=== PATIENT | male | born 1945 | race Asian ===

== ENCOUNTER → 2016-04-16 | Outpatient (CLI) | payer OTHER ==
[~2016-04-16] MED LIST: AMLO-110 PO; CHOL2000 PO; CMD3 PO; FERR325T51 PO; FINA5TAB PO; LEVO25TA PO; LTN/2025 PO; METO25TA56 PO; SIMV20TA2 PO; TAMS0.4C38 PO; ZTHM250 PO
[2016-04-16 10:46] LABS: BLOOD UREA NITROGEN 21 mg/dl (7-18); BUN/CREATININE RATIO 22.2 (10-20); CALCIUM 10.1 mg/dl (8.5-10.1); CARBON DIOXIDE 27 mmol/L (21-32); CHLORIDE 105 mmol/L (98-107); CREATININE 0.95 mg/dl (0.60-1.40); GLUCOSE 84 mg/dl (70-99); SODIUM 141 mmol/L (136-145)
== END | disposition home or self-care (01) ==
LOC: C.LAB1850 09:07
PROVIDERS: ATTEND Internal Medicine
DX: E87.1 Hypo-osmolality and hyponatremia (principal)

== ENCOUNTER → 2016-05-28 | Outpatient (CLI) | payer OTHER ==
[2016-05-28 17:57] LABS: URINE APPEARANCE CLEAR (CLEAR); URINE BILIRUBIN NEG (NEG); URINE COLOR YELLOW; URINE EPITHELIAL CELL AUTO 0-5 /lpf (0-5); URINE NITRITE NEG (NEG); URINE PH 6.5 (4.5-7.5); URINE SPECIFIC GRAVITY 1.002 (1.000-1.030); UROBILINOGEN NEG (NEG); ZZUR CULT IF INDIC CLEAN CATCH NO
[2016-05-28 18:00] LABS: MANUAL MICROSCOPIC REQUIRED? NO; REVIEW REQ? NO
[2016-05-28 18:30] LABS: CREATININE RANDOM URINE < 13.0 mg/dl
[2016-05-29 06:18] LABS: ESTIMATED AVERAGE GLUCOSE 114 mg/dl; HA1C FLAG Normal (Normal)
== END | disposition home or self-care (01) ==
LOC: C.LABBFT 12:10
PROVIDERS: ATTEND Urology
DX: E11.9 Type 2 diabetes mellitus without complications (principal); E03.9 Hypothyroidism, unspecified; E55.9 Vitamin D deficiency, unspecified; R33.9 Retention of urine, unspecified

== ENCOUNTER → 2016-09-17 | Outpatient (CLI) | payer OTHER ==
[~2016-09-17] MED LIST changes: +AZIT-57 PO; -ZTHM250 PO
[2016-09-17 13:14] LABS: HEMATOCRIT 38.1 % (42-52); MEAN CELL VOLUME 85.8 fL (80-100); MEAN CORPUSCULAR HEMOGLOBIN 27.7 pg (25-34); MEAN CORPUSCULAR HGB CONC 32.3 g/dl (32-36); MEAN PLATELET VOLUME 10.5 fL (7.4-10.4); PLATELET COUNT 182 K/uL (130-400); RED BLOOD COUNT 4.44 M/uL (4.7-6.1); WHITE BLOOD COUNT 4.43 K/uL (4.8-10.8)
[2016-09-17 14:05] LABS: BLOOD UREA NITROGEN 29 mg/dl (7-18); BUN/CREATININE RATIO 26.8 (10-20); CALCIUM 9.5 mg/dl (8.5-10.1); CARBON DIOXIDE 26 mmol/L (21-32); CHLORIDE 102 mmol/L (98-107); GLUCOSE 87 mg/dl (70-99); POTASSIUM 3.8 mmol/L (3.5-5.1); SODIUM 137 mmol/L (136-145)
== END | disposition home or self-care (01) ==
LOC: C.LAB1850 11:47
PROVIDERS: ATTEND Physician Assistant
DX: D64.9 Anemia, unspecified (principal); R42 Dizziness and giddiness

== ENCOUNTER → 2016-10-14 | Outpatient (CLI) | payer OTHER ==
[~2016-10-14] MED LIST changes: -AZIT-57 PO; +ZTHM250 PO
[2016-10-14 10:22] LABS: INR 2.1 (0.9-1.1); PROTHROMBIN TIME (PATIENT) 22.8 SECONDS (9.0-12.0)
[2016-10-14 12:40] LABS: CHOLESTEROL/HDL RATIO 2.9
== END | disposition home or self-care (01) ==
LOC: C.LAB1850 09:01
PROVIDERS: ATTEND Internal Medicine
DX: I48.1 Persistent atrial fibrillation (principal); E78.00 Pure hypercholesterolemia, unspecified

== ENCOUNTER → 2016-10-15 | Outpatient (CLI) | payer OTHER ==
--- NOTE | 2016-10-15 12:50 | DIAGNOSTIC IMAGING REPORT ---
CHEST 2 VIEWS ROUTINE CLINICAL HISTORY: 71 years-old Male presenting with PLEURAL EFFUSION. TECHNIQUE: PA and lateral views of the chest were obtained. COMPARISON: 03/03/2016. FINDINGS: Left-sided pacer with single lead to the right ventricular apex. Median sternotomy wires intact. Prosthetic aortic valve noted. Enlarged cardiac silhouette with a double density suggestive of left atrial enlargement. Atherosclerosis of the aortic arch. Lungs and pleural spaces now clear. Osseous structures and upper abdomen normal. IMPRESSION: 1. Interval resolution of prior right pleural effusion and basilar opacity. No acute cardiopulmonary disease. 2. Cardiomegaly. Electronically signed by: Gen Cazares M.D. 10/15/2016 12:49 PM Dictated Date/Time: 10/15/2016 12:47 PM
== END | disposition home or self-care (01) ==
LOC: C.RAD1850 12:08
PROVIDERS: ATTEND Internal Medicine
DX: J90 Pleural effusion, not elsewhere classified (principal); I51.7 Cardiomegaly

== ENCOUNTER → 2016-12-11 | Outpatient (CLI) | payer OTHER ==
[2016-12-11 16:29] LABS: BLOOD UREA NITROGEN 26 mg/dl (7-18); BUN/CREATININE RATIO 23.6 (10-20); CALCIUM 9.9 mg/dl (8.5-10.1); CARBON DIOXIDE 31 mmol/L (21-32); CHLORIDE 101 mmol/L (98-107); GLUCOSE 108 mg/dl (70-99); MAGNESIUM 2.3 mg/dl (1.8-2.4); POTASSIUM 3.6 mmol/L (3.5-5.1); SODIUM 137 mmol/L (136-145)
[2016-12-11 16:30] LABS: PHOSPHORUS 2.9 mg/dl (2.5-4.9)
[2016-12-11 17:09] LABS: URINE PROTIEN/CREAT RATIO 0.3 (0-0.2); URINE TOTAL PROTEIN 12.5 mg/dl (0-11.9)
== END | disposition home or self-care (01) ==
LOC: C.LAB1850 15:06
PROVIDERS: ATTEND Internal Medicine Nephrology
DX: I10 Essential (primary) hypertension (principal)

== ENCOUNTER → 2017-03-10 | Outpatient (CLI) | payer OTHER ==
[~2017-03-10] MED LIST changes: +AZIT-57 PO; -ZTHM250 PO
[2017-03-10 10:10] LABS: BASO % 0.4 %; BASO ABS # 0.02 K/uL (0-0.2); COMPLETE YES; EOS % 3.8 %; HEMATOCRIT 37.8 % (42-52); IG% 0.2 %; LYMPH ABS # 1.73 K/uL (1.2-3.4); MEAN CELL VOLUME 87.9 fL (80-100); MEAN CORPUSCULAR HEMOGLOBIN 28.4 pg (25-34); MEAN CORPUSCULAR HGB CONC 32.3 g/dl (32-36); MEAN PLATELET VOLUME 10.2 fL (7.4-10.4); MONO % 15.4 %; NEUT % 47.2 %; PLATELET COUNT 164 K/uL (130-400); WHITE BLOOD COUNT 5.25 K/uL (4.8-10.8)
[2017-03-10 10:20] LABS: ESTIMATED AVERAGE GLUCOSE 120 mg/dl; HA1C FLAG Normal (Normal)
[2017-03-10 10:44] LABS: ALT/SGPT 37 U/L (12-78); AST/SGOT 42 U/L (15-37); BLOOD UREA NITROGEN 23 mg/dl (7-18); BUN/CREATININE RATIO 21.1 (10-20); CALCIUM 9.2 mg/dl (8.5-10.1); CARBON DIOXIDE 27 mmol/L (21-32); CHLORIDE 99 mmol/L (98-107); CREATININE 1.09 mg/dl (0.60-1.40); GLUCOSE 111 mg/dl (70-99); POTASSIUM 3.5 mmol/L (3.5-5.1); SODIUM 131 mmol/L (136-145)
[2017-03-10 10:54] LABS: ALB/GLOB RATIO 0.8 (0.9-2); ALKALINE PHOSPHATASE 94 U/L (45-117)
== END | disposition home or self-care (01) ==
LOC: C.LAB1850 09:15
PROVIDERS: ATTEND Internal Medicine
DX: D64.9 Anemia, unspecified (principal); E03.9 Hypothyroidism, unspecified; E11.9 Type 2 diabetes mellitus without complications

== ENCOUNTER 2018-10-03 13:15 | Inpatient (IN) ==
[2018-10-03] MEDS ORDERED: SODIUM CHLORIDE 0.9% 1000ML 1,000 ML IV SCH (13:45)
[2018-10-03 14:10] LABS: Basophils # (auto) 0.03 K/uL (0-0.2); Basophils % (auto) 0.6 %; Eosinophils # (auto) 0.22 K/uL (0-0.5); Eosinophils % (auto) 4.7 %; Hematocrit (blood only) 25.4 % (42-52); Hemoglobin 8.5 g/dL (14.0-18.0); Immature Granulocytes # (auto) 0.01 K/uL (0.00-0.02); Immature Granulocytes % (auto) 0.2 %; Lymphocytes # (auto) 0.81 K/uL (1.2-3.4); Lymphocytes % (auto) 17.1 %; Mean Corpuscular Hgb Conc 33.5 g/dL (32-36); Mean Corpuscular Volume 83.3 fL (80-100); Mean Platelet Volume 9.2 fL (7.4-10.4); Monocytes # (auto) 0.57 K/uL (0.11-0.59); Monocytes % (auto) 12.1 %; Neutrophils # (auto) 3.09 K/uL (1.4-6.5); Neutrophils % (auto) 65.3 %; Platelet Count 164 K/uL (130-400); RDW Coefficient of Variation 13.6 % (11.5-14.5); RDW Standard Deviation 41.5 fL (36.4-46.3); Red Blood Count 3.05 M/uL (4.7-6.1); White Blood Count 4.73 K/uL (4.8-10.8)
[2018-10-03 14:19] LABS: INR 3.1 (0.9-1.1); Partial Thromboplastin Ratio 1.5; Partial Thromboplastin Time 41.6 Seconds (21.0-31.0)
[2018-10-03 14:26] LABS: Alanine Aminotransferase 39 U/L (12-78); Albumin Level 3.5 gm/dl (3.4-5.0); Aspartate Aminotransferase 51 U/L (15-37); BUN Creatinine Ratio 17.3 (10-20); Blood Urea Nitrogen 21 mg/dl (7-18); Calcium 9.2 mg/dl (8.5-10.1); Carbon Dioxide 27 mmol/L (21-32); Chloride 92 mmol/L (98-107); Est GFR (African American) 67.4; Est GFR (Non-African American) 58.1; Glucose 125 mg/dl (70-99); Potassium 3.4 mmol/L (3.5-5.1); Sodium 127 mmol/L (136-145)
[2018-10-03 14:28] LABS: Albumin Globulin Ratio 0.9 (0.9-2); Alkaline Phosphatase 64 U/L (45-117); Bilirubin,Total 0.4 mg/dl (0.2-1); Globulin 3.9 gm/dl (2.5-4.0); Total Protein 7.4 gm/dl (6.4-8.2)
--- NOTE | 2018-10-03 15:20 | History & Physical Report ---
Date of Service October 03, 2018 Assessment & Plan (1) GI bleed: (2) Anemia: (3) Dizziness: -Admit to telemetry -Holding Coumadin, 5 mg vitamin K administered -GI consulted, Dr. Cuevas -Recheck hemoglobin/hematocrit along with second troponin, follow with a.m. labs -Famotidine 20 mg BID as protonix on severe back order -Blood consent, type and screen obtained in the ER -Check troponin now with possibility of acute blood loss anemia causing demand ischemia (4) MGUS (monoclonal gammopathy of unknown significance): -Noted, stable (5) Hyponatremia: -Na+ = 127, will improve with NSS follow a.m. PRP (6) Hypokalemia: -Mildly depressed at 3.4, follow a.m. PRP, order one-time dose p.o. supplementation (7) HTN (hypertension): (8) HLD (hyperlipidemia): (9) H/O mitral valve replacement with mechanical valve: (10) Pacemaker: -Holding all antihypertensives -Continue simvastatin -Holding Coumadin, last dose was last evening of 3 mg. Patient alternates 3 mg 3xwk and 4.5 mg all other days. (11) DVT prophylaxis: Teds, no chemical prophylaxis secondary to GI bleed as above. History of Present Illness Primary Care Provider: Geoffrey Sargent MD This is a 73-year-old male with past medical history of MGUS, anemia, HTN, HLD, hypothyroidism, BPH, afib s/p pacemaker insertion in 2015 currently in NSR, mechanical MV placed 2004, who presents with occult GI bleed. Patient's son is at bedside provides majority of the history for the patient, as he speaks in broken Kiswahili. The bleeding started approximately 1 week ago and has progressed to the point where he has BRBPR at least 3 times per day, today he has had 2 bowel movements. Patient has been taking his regularly scheduled Coumadin, 3 mg alternating with 4.5 mg, last dose was last evening of 3 mg. He admits to dizziness x2 days and progressive fatigue over the last week. Patient denies any shortness of breath. Denies abdominal pain or cramping. Hgb= 8.5, sodium = 127, K+ = 3.4. Allergies Allergy/AdvReac Type Severity Reaction Status Date / Time adhesive Allergy Unknown RASH Verified 10/03/18 14:47 Home Medications Home Medications Medication Instructions Recorded Confirmed Type cholecalciferol (vitamin D3) 2,000 unit PO DAILY #0 02/19/15 10/03/18 History simvastatin 20 mg PO DAILY #0 02/19/15 10/03/18 History finasteride 5 mg PO DAILY #0 tab 02/26/16 10/03/18 History metoprolol tartrate 25 mg PO BID #0 02/26/16 10/03/18 History tamsulosin 0.4 mg PO DAILY #0 cap 02/26/16 10/03/18 History ferrous sulfate 325 mg PO DAILY #0 05/31/17 10/03/18 History warfarin [Jantoven] 3 mg PO 3XWK #0 05/31/17 10/03/18 History warfarin [Jantoven] 3 mg PO 4XWK #0 05/31/17 10/03/18 History amlodipine 5 mg PO DAILY 10/03/18 10/03/18 History benazepril-hydrochlorothiazide 1 tab PO DAILY 10/03/18 10/03/18 History calcium carbonate [Calcium 500] 500 mg PO DAILY 10/03/18 10/03/18 History levothyroxine 50 mcg PO DAILY 10/03/18 10/03/18 History Past Med/Surg History Medical History Pacemaker HLD (hyperlipidemia) HTN (hypertension) Hypokalemia Hyponatremia GI bleed (Acute) Anemia (Acute) Dizziness MGUS (monoclonal gammopathy of unknown significance) Surgical History H/O mitral valve replacement with mechanical valve S/P hemorrhoidectomy Family History Other Hypertension Social History Feels Safe at Home: Yes Smoking Status: Never smoker Review of Systems Review of Systems: Constitutional: No fever, sweats or chills, + fatigue and dizziness Eyes: No diplopia, no worsening or blurred vision ENT: normal hearing, no trouble swallowing Respiratory: No cough, sputum, dyspnea at rest or on exertion Cardiovascular: No chest pain, tightness or palpitations Abdomen: No pain, nausea, vomiting, diarrhea or constipation Musculoskeletal: No joint pain, calf pain, swelling Neurologic: Chronic left-sided weakness s/p CVA, uses cane at baseline, numbness/tingling, or balance problems Psychiatric: No anxiety or depression Skin: No rash or itch Physical Exam Physical Exam: General: awake, alert, no apparent distress Head: Normocephalic, atraumatic ENT: PERRL, EOMI, no pharyngeal exudate, mucous membranes moist Chest: Clear to auscultation, on room air, no adventitious breath sounds Cardiac: Regular rate and rhythm, no murmur, + valve click, no JVD, normal peripheral pulses, good capillary refill Abdominal: NABS x 4 quadrants, soft, +slightly distended, nontender to palpation, no rebound, guarding or tenderness Extremities: Normal inspection, no peripheral edema or erythema, calfs nontender to palpation Psych: Normal mood and affect Neuro: AAO x 3, no gross motor deficits, speech is clear Skin: no rash or erythema Constitutional: WD/WN, vitals as above Eyes: normal visual hartley by confrontation and + anicteric sclerae Neck: normal visual inspection and trachea midline Respiratory: normal respiratory effort, lungs clear to auscultation Cardiovascular: Rate/Rhythm: regular rate and regular rhythm Gastrointestinal (Abdomen): Inspection/Auscultation: abdomen not distended Percussion/Palpation: abdomen soft; abdomen nontender Musculoskeletal: Head/Neck/Chest: normocephalic and head atraumatic negative for edema, peripheral pulses intact Skin: no rashes, warm and dry Neurologic: awake; not confused Speech / Cognition: normal speech Psychiatric: A+Ox3, euthymic affect Results & Data Vital Signs (Past 12 Hours) Vital Signs Temp Pulse Resp BP Pulse Ox 10/03/18 14:41 60 18 97 10/03/18 14:31 60 19 122/59 L 98 10/03/18 14:30 60 15 98 10/03/18 14:20 60 15 98 10/03/18 14:11 60 16 97 10/03/18 14:01 65 18 131/64 98 10/03/18 14:00 68 19 10/03/18 13:50 60 18 98 10/03/18 13:45 86 7 L 10/03/18 13:43 61 21 127/66 98 10/03/18 13:22 36.7 C 65 20 139/68 98 ECG Additional Comments: 03-OCT-2018 13:58:17 [facility]-EDSTAT ROUTINE RETRIEVAL Ventricular-paced rhythm Abnormal ECG When compared with ECG of 26-NOV-2016 17:14, No significant change was found 25mm/s 10mm/mV 150Hz 9.0.8 12SL 241 CHRISTIANO: 11 Unconfirmed Vent. rate 67 BPM MD interval * ms QRS duration 198 ms QT/QTc 498/526 ms P-R-T axes * -86 87 Code Status & VTE Plan Code Status Full code- discussed with patient and son at bedside Supervising Physician Co-Signing Physician Notes Pt seen and examined by me. Denies chest pain or SOB. Has been tolerating PO without issue. [place] that the BRBPR that he has been having was similar to hemorrhoids, however when he has had hemorrhoid bleeding in the past he could feel the hemorrhoid. He could not with this episode. Agree with HPI/ROS as noted by PA. See above for my exam in PE section Agree with plan as outlined above GIB, possibly hemorrhoids Hb is 8.5, repeat and monitor Pt was guaic + in the ED Holding coumadin INR 3.1, was given 5mg Vit K in the ED given bleeding Monitor PG Care Time/CCT Total # of Minutes Spent Total Time Spent with Patient: Total time spent is greater than 50% in coordination of care (as documented) at patient's floor/unit and/or counseling patient: (1) GI bleed GI bleed type/associated pathology: unspecified gastrointestinal hemorrhage type Qualified Code(s): K92.2 - Gastrointestinal hemorrhage, unspecified (2) Anemia Anemia type: unspecified type Qualified Code(s): D64.9 - Anemia, unspecified
--- NOTE | 2018-10-03 15:30 | Emergency Department Note ---
Entered by Penny Chery acting as a scribe for History of Present Illness General Chief complaint: Referred by Doctor Stated complaint: HEMORROID, BLEEDING Source: patient and family Mode of arrival: ambulatory Limitations: no limitations History of Present Illness Provider complaint: rectal bleeding Onset (ago): day(s) (4-5) Location: abdomen Pain Consistency: + other (persistent) Quality: + other (rectal bleeding) Associated symptoms: + other (no energy); no nausea/vomiting The patient is a 73 year old male who presents to the ER with complaints of persistent rectal bleeding that began 4-5 days ago. The patients family member at bedside reports that the patient does have a history of hemorrhoids. He states that the patient has had liquid bowel movement for the past 4-5 days which contain bright red blood. He also notes that the patient has had no energy. He reports that the patient is on Coumadin for his history of a-fib. He denies a history of cancer or stomach ulcers. He also denies ever having a colonoscopy performed. The patient denies any vomiting. Home Medications Home Medications Medication Instructions Recorded Confirmed Type cholecalciferol (vitamin D3) 2,000 unit PO DAILY #0 02/19/15 10/03/18 History simvastatin 20 mg PO DAILY #0 02/19/15 10/03/18 History finasteride 5 mg PO DAILY #0 tab 02/26/16 10/03/18 History metoprolol tartrate 25 mg PO BID #0 02/26/16 10/03/18 History tamsulosin 0.4 mg PO DAILY #0 cap 02/26/16 10/03/18 History ferrous sulfate 325 mg PO DAILY #0 05/31/17 10/03/18 History warfarin [Jantoven] 3 mg PO 3XWK #0 05/31/17 10/03/18 History warfarin [Jantoven] 3 mg PO 4XWK #0 05/31/17 10/03/18 History amlodipine 5 mg PO DAILY 10/03/18 10/03/18 History benazepril-hydrochlorothiazide 1 tab PO DAILY 10/03/18 10/03/18 History calcium carbonate [Calcium 500] 500 mg PO DAILY 10/03/18 10/03/18 History levothyroxine 50 mcg PO DAILY 10/03/18 10/03/18 History Allergies Allergy/AdvReac Type Severity Reaction Status Date / Time adhesive Allergy Unknown RASH Verified 10/03/18 14:47 Past Med/Surg History Medical History Pacemaker HLD (hyperlipidemia) HTN (hypertension) Hypokalemia Hyponatremia GI bleed (Acute) Anemia (Acute) Dizziness MGUS (monoclonal gammopathy of unknown significance) Surgical History H/O mitral valve replacement with mechanical valve S/P hemorrhoidectomy Family History Other Hypertension Social History Preferred Language: Francisco Javiere Kinyarwanda Communication Ability: Effective Communication Tools: IPad, Facial Expression, Physical Gestures and Other Aircraft Motor Mechanic Required: Yes Beliefs That Will Affect Care: None Current Living Situation: Spouse Current Living Situation Comment: lives with Other Information That Helps Us Care for You: No Feels Safe at Home: Yes Safety Concerns: Feels Safe At This Time Smoking Status: Never smoker Hx Alcohol Use: No Hx Substance Use: No Review of Systems See HPI for pertinent positives & negatives. and A total of 10 systems reviewed and were otherwise negative Physical Exam Vital Signs Vital Signs - 24 hr 10/03/18 15:42 Pulse Rate [Apical] 60 Pulse Rhythm [Apical] Regular Pulse Strength [Apical] Normal Respiratory Rate 16 Respiratory Effort / Characteristics Non-Labored Spontaneous Respiratory Depth Normal Respiratory Pattern Regular Blood Pressure [Left Arm] 115/65 Blood Pressure Mean [Left Arm] 81 Blood Pressure Position [Left Arm] Sitting Pulse Oximetry 98 Oxygen Delivery Method Room Air Vital signs reviewed. General: Well-appearing elderly, in no significant distress. HEENT: No scleral icterus, PERRLA, neck supple. Atraumatic. Cardiovascular: Regular rate and rhythm, no extra sounds. Pulmonary: Clear to auscultation bilaterally, normal work of breathing. Abdomen: Soft, nontender, nondistended, positive bowel sounds. Rectal: Several small external hemorrhoids around the rectum. Dark brown guaiac positive stool. Musculoskeletal: Atraumatic, no peripheral edema. Neurologic: Patient awake alert and oriented x 3, speaking pala language, son interpreting Skin: Warm, dry, no rash Course 1347: Past medical records reviewed. The patient was evaluated in room C1B. A complete history and physical examination was performed. 1457: I discussed the patient's case with Dr. Ramires. She will evaluate the patient for further management. Administered Medications Ferrous Sulfate (Feosol) 325 mg PO DAILY DONALD Stop: 11/03/18 08:59 Last Admin: 10/04/18 08:45 Dose: 325 mg Documented by: [id number] Finasteride (Proscar) 5 mg PO DAILY DONALD Stop: 11/03/18 08:59 Last Admin: 10/04/18 08:45 Dose: 5 mg Documented by: [id number] Sodium Chloride (Nss 1000ml) 1,000 mls @ 125 mls/hr IV .Q8H DONALD Stop: 11/02/18 17:09 Last Admin: 10/04/18 13:16 Dose: 125 mls/hr Documented by: [id number] Infusion: 10/04/18 13:16 Dose: 125 mls/hr Documented by: [id number] Admin: 10/04/18 05:53 Dose: 125 mls/hr Documented by: [id number] Infusion: 10/04/18 05:53 Dose: 125 mls/hr Documented by: [id number] Admin: 10/03/18 22:35 Dose: 125 mls/hr Documented by: [id number] Infusion: 10/03/18 22:35 Dose: 125 mls/hr Documented by: [id number] Admin: 10/03/18 17:20 Dose: 125 mls/hr Documented by: [id number] Famotidine 20 mg/ Syringe 5 mls @ 2.5 mls/min IV BID DONALD Stop: 11/02/18 20:59 Last Admin: 10/04/18 08:45 Dose: 2.5 mls/min Documented by: [id number] Admin: 10/03/18 20:46 Dose: 2.5 mls/min Documented by: [id number] Levothyroxine Sodium (Synthroid) 50 mcg PO DAILYBB DONALD Stop: 11/03/18 06:29 Last Admin: 10/04/18 05:52 Dose: 50 mcg Documented by: [id number] Simvastatin (Zocor) 20 mg PO DAILY DONALD Stop: 11/03/18 08:59 Last Admin: 10/04/18 08:45 Dose: 20 mg Documented by: [id number] Tamsulosin HCl (Flomax) 0.4 mg PO DAILY DONALD Stop: 11/03/18 08:59 Last Admin: 10/04/18 08:45 Dose: 0.4 mg Documented by: [id number] Discontinued Medications Sodium Chloride (Nss 1000ml) 1,000 mls @ 100 mls/hr IV .Q10H DONALD Stop: 10/03/18 23:44 Last Infusion: 10/04/18 08:39 Dose: 0 mls/hr Documented by: [id number] Admin: 10/03/18 14:16 Dose: 100 mls/hr Documented by: [id number] Potassium Chloride (Klor-Con M10) 20 meq PO NOW STA Stop: 10/03/18 17:11 Last Admin: 10/03/18 17:34 Dose: 20 meq Documented by: [id number] Medical Decision Making Differential Diagnosis Differential diagnosis: diverticulosis, AVM, coagulopathy, colitis, inflammatory bowel disease, malignancy, Susy-Bell tear, esophagitis, peptic ulcer disease, variceal bleed, gastritis, fissure, hemorrhoids, as well as others were entertained. Medical Records Attestation: I reviewed the patient's medical records. Home Medications Current Medication List: was personally reviewed by me Laboratory Data Attestation: I reviewed the patient's lab results. Result diagrams: 10/04/18 01:19 10/04/18 01:19 Lab Results 10/03/18 10/03/18 10/03/18 Range/Units 13:55 13:55 13:55 WBC 4.73 L (4.8-10.8) K/uL RBC 3.05 L (4.7-6.1) M/uL Hgb 8.5 L (14.0-18.0) g/dL Hct 25.4 L (42-52) % MCV 83.3 (80-100) fL MCH 27.9 (25-34) pg MCHC 33.5 (32-36) g/dL RDW Std Deviation 41.5 (36.4-46.3) fL RDW Coeff of Fabio 13.6 (11.5-14.5) % Plt Count 164 (130-400) K/uL MPV 9.2 (7.4-10.4) fL Immature Gran % (Auto) 0.2 % Neut % (Auto) 65.3 % Lymph % (Auto) 17.1 % Wilkinson % (Auto) 12.1 % Eos % (Auto) 4.7 % Baso % (Auto) 0.6 % Immature Gran # (Auto) 0.01 (0.00-0.02) K/uL Neut # (Auto) 3.09 (1.4-6.5) K/uL Lymph # (Auto) 0.81 L (1.2-3.4) K/uL Wilkinson # (Auto) 0.57 (0.11-0.59) K/uL Eos # (Auto) 0.22 (0-0.5) K/uL Baso # (Auto) 0.03 (0-0.2) K/uL PT 29.0 H (9.0-12.0) Seconds INR 3.1 H (0.9-1.1) APTT 41.6 H (21.0-31.0) Seconds PTT Ratio 1.5 Sodium 127 L (136-145) mmol/L Potassium 3.4 L (3.5-5.1) mmol/L Chloride 92 L (98-107) mmol/L Carbon Dioxide 27 (21-32) mmol/L Anion Gap 8.0 (3-11) BUN 21 H (7-18) mg/dl Creatinine 1.24 (0.6-1.4) mg/dl Est Cr Clr Drug Dosing Not Reportable Est GFR ( Amer) 67.4 Est GFR (Non-Af Amer) 58.1 BUN/Creatinine Ratio 17.3 (10-20) Glucose 125 H (70-99) mg/dl Calcium 9.2 (8.5-10.1) mg/dl Total Bilirubin 0.4 (0.2-1) mg/dl AST 51 H (15-37) U/L ALT 39 (12-78) U/L Alkaline Phosphatase 64 (45-117) U/L Troponin I (0-0.045) ng/ml Total Protein 7.4 (6.4-8.2) gm/dl Albumin 3.5 (3.4-5.0) gm/dl Globulin 3.9 (2.5-4.0) gm/dl Albumin/Globulin Ratio 0.9 (0.9-2) POC Stool Occult Blood (Negative) Blood Type Antibody Screen 10/03/18 10/03/18 10/03/18 Range/Units 13:55 13:55 13:58 WBC (4.8-10.8) K/uL RBC (4.7-6.1) M/uL Hgb (14.0-18.0) g/dL Hct (42-52) % MCV (80-100) fL MCH (25-34) pg MCHC (32-36) g/dL RDW Std Deviation (36.4-46.3) fL RDW Coeff of Fabio (11.5-14.5) % Plt Count (130-400) K/uL MPV (7.4-10.4) fL Immature Gran % (Auto) % Neut % (Auto) % Lymph % (Auto) % Wilkinson % (Auto) % Eos % (Auto) % Baso % (Auto) % Immature Gran # (Auto) (0.00-0.02) K/uL Neut # (Auto) (1.4-6.5) K/uL Lymph # (Auto) (1.2-3.4) K/uL Wilkinson # (Auto) (0.11-0.59) K/uL Eos # (Auto) (0-0.5) K/uL Baso # (Auto) (0-0.2) K/uL PT (9.0-12.0) Seconds INR (0.9-1.1) APTT (21.0-31.0) Seconds PTT Ratio Sodium (136-145) mmol/L Potassium (3.5-5.1) mmol/L Chloride (98-107) mmol/L Carbon Dioxide (21-32) mmol/L Anion Gap (3-11) BUN (7-18) mg/dl Creatinine (0.6-1.4) mg/dl Est Cr Clr Drug Dosing Est GFR ( Amer) Est GFR (Non-Af Amer) BUN/Creatinine Ratio (10-20) Glucose (70-99) mg/dl Calcium (8.5-10.1) mg/dl Total Bilirubin (0.2-1) mg/dl AST (15-37) U/L ALT (12-78) U/L Alkaline Phosphatase (45-117) U/L Troponin I < 0.015 (0-0.045) ng/ml Total Protein (6.4-8.2) gm/dl Albumin (3.4-5.0) gm/dl Globulin (2.5-4.0) gm/dl Albumin/Globulin Ratio (0.9-2) POC Stool Occult Blood Positive A (Negative) Blood Type B Positive Antibody Screen NEGATIVE ECG Data Attestation: I personally reviewed and interpreted this ECG as follows: Indication: other (GI bleed) Rate (beats per minute): 67 Findings: + other (QTC 526) and + paced rhythm (ventricular) Blood Pressure Blood Pressure Findings: Normal blood pressure Blood Pressure Disposition: did not require urgent referral MDM Narrative This patient was evaluated and appeared to be in no significant distress. Physical examination is fairly unrevealing. Rectal exam was performed and reveals guaiac positive dark stools. No obvious bright red blood. Patient was hydrated with normal saline solution. A type and screen was ordered. Patient's hemoglobin is noted to be 8.2. Consent for blood transfusion was signed with the patient. This will be deferred to the hospitalist for the actual transfusion if necessary. Patient and son were made aware of the findings and agree with the plan. Dr. Ramires of the hospitalist service was consulted and will see the patient for further management. Impression & Plan GI bleed, Anemia Discharge Plan Visit Data *Final* Discharge Date/Time: 10/03/18 16:42 Chief Complaint: Referred by Doctor Stated Complaint: HEMORROID, BLEEDING ED Provider: Lisa Perez Discharge Problem: GI bleed, Anemia Patient Disposition: Admitted As Inpatient Discharge Instructions Interventions: ED Discharge Assessment Last Done: 10/03/18 16:42 Discharge Problem: GI bleed Qualifiers: GI bleed type/associated pathology: unspecified gastrointestinal hemorrhage type Qualified Code(s): K92.2 - Gastrointestinal hemorrhage, unspecified Anemia Qualifiers: Anemia type: unspecified type Qualified Code(s): D64.9 - Anemia, unspecified The scribe's documentation has been prepared under my direction and personally reviewed by me in its entirety. I confirm that the note above accurately reflects all work, treatment, procedures, and medical decision making performed by me.
[2018-10-03] MEDS ORDERED: POTASSIUM CHLORIDE 10 MEQ TABCR PO STA (17:10)
[2018-10-03] MEDS: SODIUM CHLORIDE 0.9% 1000ML 1,000 ML IV SCH ×2 (17:20→22:35)
[2018-10-03] MEDS: FAMOTIDINE 20 MG in SYRINGE 3 ML IV SCH (20:46)
[2018-10-03 20:47] LABS: Hematocrit (blood only) 24.4 % (42-52); Hemoglobin 8.1 g/dL (14.0-18.0)
[2018-10-03] MEDS ORDERED: FAMOTIDINE 20MG/5ML IV PUSH IV SCH (21:00)
[2018-10-04 01:36] LABS: Hemoglobin 8.2 g/dL (14.0-18.0); Mean Corpuscular Hgb Conc 32.8 g/dL (32-36); Mean Corpuscular Volume 83.1 fL (80-100); Mean Platelet Volume 9.4 fL (7.4-10.4); Platelet Count 163 K/uL (130-400); RDW Coefficient of Variation 13.7 % (11.5-14.5); RDW Standard Deviation 41.8 fL (36.4-46.3); Red Blood Count 3.01 M/uL (4.7-6.1); White Blood Count 4.64 K/uL (4.8-10.8)
[2018-10-04 01:55] LABS: Albumin Level 3.4 gm/dl (3.4-5.0); BUN Creatinine Ratio 14.6 (10-20); Calcium 8.5 mg/dl (8.5-10.1); Creatinine Clr Calc Pharmacy 68.4 ml/min; Est GFR (African American) 71.5; Est GFR (Non-African American) 61.7; Potassium 3.8 mmol/L (3.5-5.1)
[2018-10-04 01:58] LABS: Albumin Globulin Ratio 0.9 (0.9-2); Bilirubin,Total 0.5 mg/dl (0.2-1); Globulin 3.7 gm/dl (2.5-4.0); Total Protein 7.1 gm/dl (6.4-8.2)
[2018-10-04] MEDS: LEVOTHYROXINE SODIUM 50 MCG TABLET PO SCH (05:52)
[2018-10-04] MEDS: SODIUM CHLORIDE 0.9% 1000ML 1,000 ML IV SCH ×3 (05:53→21:00)
[2018-10-04] MEDS: FERROUS SULFATE 325 MG TAB PO SCH (08:45)
[2018-10-04] MEDS: TAMSULOSIN HCL 0.4 MG CAP PO SCH (08:45)
[2018-10-04] MEDS: FAMOTIDINE 20 MG in SYRINGE 3 ML IV SCH ×2 (08:45→21:04)
[2018-10-04] MEDS: SIMVASTATIN 20 MG TAB PO SCH (08:45)
[2018-10-04] MEDS: FINASTERIDE 5 MG TAB PO SCH (08:45)
[2018-10-04 11:41] LABS: INR 2.6 (0.9-1.1); Prothrombin Time 24.5 Seconds (9.0-12.0)
--- NOTE | 2018-10-04 15:33 | Gastrointestinal Consultation ---
Date of Consultation October 04, 2018 Assessment & Plan (1) Anemia: The pt has undergone colonoscopy in 2018, with hemorrhoids. Differential dx for cause of this bleeding includes hemorrhoids, ischemic colitis (though would expect pain), diverticular bleed (would expect that to be self limited and would have expected it to stop by this time). Being on coumadin, an upper GI bleed is also a concern. Plan: 1. Hold warfarin. May use heparin if needed. 2. Clear liquids po today then NPO after midnight. 3. Plan for EGD tomorrow by Dr. Miller. Present on Admission?: Yes (2) Rectal bleeding: Supervising Physician Co-Signing Physician Notes I performed a history and physical examination of the patient, including specifically on physical exam - soft, nontender abdomen. I have discussed the patient's management with Alisia. Please refer to the nurse practitioner's note for the documented findings and plan of care. 73 male patient on Coumadin for Metallic heart valve, admitted with anemia and rectal bleeding. H/H seems stable now. Plan: EGD and colonoscopy tomorrow after bowel prep. Can use IV Heparin if needed instead of Coumadin. History of Present Illness Reason for Consultation: "GI Bleed" Requesting Physician: Krystyna Alejandro PA-C Attending Physician: Juanito Tran History of Present Illness Mr. Finney is a 73 yr old male pt of Dr. Sargent with a hx of MGUS, CAD with pacemaker and mitral valve replacement with mechanical valve. He was brought to the ED yesterday with report of bright red rectal bleeding, up to 3 times a day for a week. He is on coumadin for a mechanical heart valve. He denies any abdominal pain, nausea or vomiting. Hb on arrival 10.3->8.5 and BUN 22. He has not received any blood products. He most recently underwent colonoscopy on 06/29/[address] Segovia for iron deficiency anemia on 06/29/18 with findings of internal and external hemorrhoids. He has not previously undergone EGD. Allergies Allergy/AdvReac Type Severity Reaction Status Date / Time adhesive Allergy Unknown RASH Verified 10/03/18 14:47 Home Medications Home Medications Medication Instructions Recorded Confirmed Type cholecalciferol (vitamin D3) 2,000 unit PO DAILY #0 02/19/15 10/03/18 History simvastatin 20 mg PO DAILY #0 02/19/15 10/03/18 History finasteride 5 mg PO DAILY #0 tab 02/26/16 10/03/18 History metoprolol tartrate 25 mg PO BID #0 02/26/16 10/03/18 History tamsulosin 0.4 mg PO DAILY #0 cap 02/26/16 10/03/18 History ferrous sulfate 325 mg PO DAILY #0 05/31/17 10/03/18 History warfarin [Jantoven] 3 mg PO 3XWK #0 05/31/17 10/03/18 History warfarin [Jantoven] 3 mg PO 4XWK #0 05/31/17 10/03/18 History amlodipine 5 mg PO DAILY 10/03/18 10/03/18 History benazepril-hydrochlorothiazide 1 tab PO DAILY 10/03/18 10/03/18 History calcium carbonate [Calcium 500] 500 mg PO DAILY 10/03/18 10/03/18 History levothyroxine 50 mcg PO DAILY 10/03/18 10/03/18 History Patient History Medical History Pacemaker HLD (hyperlipidemia) HTN (hypertension) Hypokalemia Hyponatremia GI bleed (Acute) Anemia (Acute) Dizziness MGUS (monoclonal gammopathy of unknown significance) Surgical History H/O mitral valve replacement with mechanical valve S/P hemorrhoidectomy Family History Other Hypertension Social History Preferred Language: [facility] Communication Ability: Effective Communication Tools: IPad, Facial Expression, Physical Gestures and Other Shank Pinner Required: Yes Beliefs That Will Affect Care: None Current Living Situation: Spouse Current Living Situation Comment: lives with Other Information That Helps Us Care for You: No Feels Safe at Home: Yes Safety Concerns: Feels Safe At This Time Smoking Status: Never smoker Hx Alcohol Use: No Hx Substance Use: No Review of Systems Review of Systems: ROS: Gen: Denies weakness, fevers, weight loss Eyes: No eye redness, or pain, no recent vision changes Resp: No SOB, no cough Cardio: No palpitations/irregular beats, no chest pain GI: +rectal bleeding, noabdominal pain, no nausea/vomiting : Denies pain on urination Skin: No jaundice, itching or new rashes Physical Exam Constitutional: WD/WN, vitals as above Eyes: PERRL, conjunctivae normal, anicteric sclerae ENMT: external ear and nose normal, oropharynx normal Neck: trachea midline, no thyromegaly Respiratory: normal respiratory effort, lungs clear to auscultation Cardiovascular: RRR, no murmur, no edema Gastrointestinal (Abdomen): normal bowel sounds, soft, nontender, no hepatosplenomegaly Skin: no rashes, warm and dry Neurologic: patellar DTR's 2+ bilat, sensation intact Psychiatric: A+Ox3, euthymic affect Lymphatic: no cervical or axillary lymphadenopathy Results & Data Vital Signs (Past 12 Hours) Vital Signs Temp Pulse Pulse Resp BP Pulse Ox 10/04/18 15:25 36.5 C 62 16 154/76 H 98 10/04/18 14:22 62 10/04/18 10:43 37.0 C 60 20 131/63 96 10/04/18 08:45 60 10/04/18 07:20 36.5 C 60 17 118/59 L 95 Laboratory Results Hb 10.2->8.3. BUN22 (1) Anemia Anemia type: unspecified type Qualified Code(s): D64.9 - Anemia, unspecified
[2018-10-04] MEDS ORDERED: BISACODYL 5 MG TABEC PO STA (17:32)
[2018-10-04] MEDS ORDERED: LAVAGE SOLUTION 4000ML PO ONE (17:45)
[2018-10-04] MEDS ORDERED: PHYTONADIONE 5 MG TAB PO STA (18:24)
[2018-10-04] MEDS ORDERED: PHYTONADIONE 5 MG in SODIUM CHLORIDE 0.9% 50 ML IV ONE (19:00)
[2018-10-04 19:19] LABS: INR 2.4 (0.9-1.1); Partial Thromboplastin Ratio 1.5; Partial Thromboplastin Time 39.5 Seconds (21.0-31.0); Prothrombin Time 23.2 Seconds (9.0-12.0)
[2018-10-04] MEDS: Heparin IV Standard *NO* Bolus IV SCH ×2 (19:41→19:42)
[2018-10-04] MEDS ORDERED: Heparin Adult STANDARD Wt-Based Dextrose 5% 25,000 units/500 mL IV SCH (19:45)
[2018-10-04] MEDS: PANTOprazole 40 MG TAB PO SCH (21:04)
--- NOTE | 2018-10-04 22:06 | Hospitalist Progress Note ---
Date of Service October 04, 2018 Assessment & Plan (1) GI bleed: (2) Anemia: (3) Dizziness: -Admit to telemetry -Holding Coumadin, 5 mg vitamin K administered -GI consulted, Dr. Cuevas -Recheck hemoglobin/hematocrit along with second troponin, follow with a.m. labs -Famotidine 20 mg BID -Blood consent, type and screen obtained in the ER -trop x 3 negative. Patient will likely need upper and lower endoscopy. Likely diverticular bleed. INR was therapeutic and bleeding has decreased. (4) MGUS (monoclonal gammopathy of unknown significance): -Noted, stable (5) Hyponatremia: -Na+ = 132 improved / (6) Hypokalemia: improved. will monitor. (7) HTN (hypertension): (8) HLD (hyperlipidemia): (9) H/O mitral valve replacement with mechanical valve: (10) Pacemaker: -Holding all antihypertensives -Continue simvastatin Ordered vitamin K. On heparin drip. (11) DVT prophylaxis: Teds, no chemical prophylaxis secondary to GI bleed as above. Spent 45 minutes in management of patient. Subjective 73 yo male has no new complaints today. He has noticed some blood in his stools today. He denies any dizziness, nausea, vomiting. Patient reports he gets dizzy when he ambulates. He has not ambulated while he has been here. Review of Systems Review of Systems: All systems reviewed & are unremarkable except as noted in HPI & below Physical Exam Physical Exam: General: awake, alert, no apparent distress Head: Normocephalic, atraumatic ENT: PERRL, EOMI, no pharyngeal exudate, mucous membranes moist Chest: Clear to auscultation, on room air, no adventitious breath sounds Cardiac: Regular rate and rhythm, no murmur, + valve click, no JVD, normal peripheral pulses, good capillary refill Abdominal: NABS x 4 quadrants, soft, +slightly distended, nontender to palpation, no rebound, guarding or tenderness Extremities: Normal inspection, no peripheral edema or erythema, calfs nontender to palpation Psych: Normal mood and affect Neuro: AAO x 3, no gross motor deficits, speech is clear Skin: no rash or erythema Results & Data Vital Signs (Past 12 Hours) Vital Signs Temp Pulse Pulse Resp BP Pulse Ox 10/04/18 15:25 36.5 C 62 16 154/76 H 98 10/04/18 14:22 62 10/04/18 10:43 37.0 C 60 20 131/63 96 PG Care Time/CCT Total # of Minutes Spent Total Time Spent with Patient: Total time spent is greater than 50% in coordination of care (as documented) at patient's floor/unit and/or counseling patient: (1) GI bleed GI bleed type/associated pathology: unspecified gastrointestinal hemorrhage type Qualified Code(s): K92.2 - Gastrointestinal hemorrhage, unspecified (2) Anemia Anemia type: unspecified type Qualified Code(s): D64.9 - Anemia, unspecified
[2018-10-04 22:37] LABS: Hematocrit (blood only) 25.1 % (42-52); Hemoglobin 8.1 g/dL (14.0-18.0)
[2018-10-05 01:48] LABS: Hematocrit (blood only) 23.5 % (42-52); Hemoglobin 7.6 g/dL (14.0-18.0); Mean Corpuscular Hgb Conc 32.3 g/dL (32-36); Mean Corpuscular Volume 84.2 fL (80-100); Mean Platelet Volume 9.2 fL (7.4-10.4); Platelet Count 144 K/uL (130-400); RDW Coefficient of Variation 13.8 % (11.5-14.5); RDW Standard Deviation 42.2 fL (36.4-46.3); Red Blood Count 2.79 M/uL (4.7-6.1); White Blood Count 3.65 K/uL (4.8-10.8)
[2018-10-05 02:16] LABS: Partial Thromboplastin Ratio 3.1
[2018-10-05 02:24] LABS: Albumin Globulin Ratio 0.9 (0.9-2); Albumin Level 3.1 gm/dl (3.4-5.0); BUN Creatinine Ratio 10.8 (10-20); Bilirubin,Total 0.6 mg/dl (0.2-1); Calcium 8.4 mg/dl (8.5-10.1); Creatinine Clr Calc Pharmacy 67.6 ml/min; Est GFR (African American) 70.1; Est GFR (Non-African American) 60.5; Globulin 3.4 gm/dl (2.5-4.0); Partial Thromboplastin Time 83.2 Seconds (21.0-31.0); Potassium 3.4 mmol/L (3.5-5.1); Total Protein 6.5 gm/dl (6.4-8.2)
[2018-10-05] MEDS: SODIUM CHLORIDE 0.9% 1000ML 1,000 ML IV SCH ×3 (05:00→23:15)
[2018-10-05] MEDS: LEVOTHYROXINE SODIUM 50 MCG TABLET PO SCH (05:47)
[2018-10-05 08:33] LABS: Hematocrit (blood only) 22.7 % (42-52); Hemoglobin 7.4 g/dL (14.0-18.0)
[2018-10-05] MEDS: FERROUS SULFATE 325 MG TAB PO SCH (08:53)
[2018-10-05] MEDS: TAMSULOSIN HCL 0.4 MG CAP PO SCH (08:53)
[2018-10-05] MEDS: SIMVASTATIN 20 MG TAB PO SCH (08:53)
[2018-10-05] MEDS: PANTOprazole 40 MG TAB PO SCH ×2 (08:53→21:01)
[2018-10-05] MEDS: FINASTERIDE 5 MG TAB PO SCH (08:53)
[2018-10-05] MEDS: FAMOTIDINE 20 MG in SYRINGE 3 ML IV SCH ×2 (08:54→21:00)
[2018-10-05 09:08] LABS: INR 1.5 (0.9-1.1); Partial Thromboplastin Ratio 3.3; Prothrombin Time 15.1 Seconds (9.0-12.0)
[2018-10-05 09:14] LABS: Partial Thromboplastin Time 88.5 Seconds (21.0-31.0)
--- NOTE | 2018-10-05 10:21 | Gastroenterology Progress Note ---
Date of Service October 05, 2018 Assessment & Plan (1) Anemia: The pt has undergone colonoscopy in 2018, with hemorrhoids. Differential dx for cause of this bleeding includes hemorrhoids, ischemic colitis (though would expect pain), diverticular bleed (would expect that to be self limited and would have expected it to stop by this time). Being on coumadin, an upper GI bleed is also a concern. Plan: 1. Continue to hold warfarin. Heparin was initiated by primary services and was stopped at 0830. 2. Keep n.p.o. 3. BID PPI. 4. EGD and colonoscopy today by Dr. Miller. (2) Rectal bleeding: Supervising Physician Co-Signing Physician Notes I performed a history and physical examination of the patient, including specifically on physical exam - soft, nontender abdomen. I have discussed the patient's management with Alisia. Please refer to the nurse practitioner's note for the documented findings and plan of care. EGD and colonoscopy today. Subjective Mr. Finney is a 73-year-old male who presented to the emergency department on Wednesday for rectal bleeding total 1 week duration worsening through the week. Anemia: Hb on arrival 11.6 -> 7.4, has not received any blood products. Completed prep for colonoscopy: Several clear, blood tinged bowel movements. Review of Systems Review of Systems: ROS: Gen: Denies weakness, fevers, weight loss Eyes: No eye redness, or pain, no recent vision changes Resp: No SOB, no cough Cardio: No palpitations/irregular beats, no chest pain GI: +rectal bleeding, no abdominal pain, no nausea/vomiting : Denies pain on urination Skin: No jaundice, itching or new rashes Physical Exam Constitutional: WD/WN, vitals as above Eyes: PERRL, conjunctivae normal, anicteric sclerae ENMT: external ear and nose normal, oropharynx normal Neck: trachea midline, no thyromegaly Respiratory: normal respiratory effort, lungs clear to auscultation Cardiovascular: RRR, no murmur, no edema Gastrointestinal (Abdomen): normal bowel sounds, soft, nontender, no hepatosplenomegaly Skin: no rashes, warm and dry Neurologic: patellar DTR's 2+ bilat, sensation intact Psychiatric: A+Ox3, euthymic affect Lymphatic: no cervical or axillary lymphadenopathy Results & Data Vital Signs (Past 12 Hours) Vital Signs Temp Pulse Pulse Resp BP BP Pulse Ox 10/05/18 07:39 36.8 C 60 20 152/70 H 97 10/05/18 04:36 60 139/68 10/05/18 03:01 36.4 C L 61 19 160/72 H 98 10/05/18 00:28 60 135/70 10/04/18 23:45 36.9 C 66 20 170/74 H 98 Laboratory Results WBC 3.6, hemoglobin 7.4, hematocrit 22.7, platelets 144, sodium 138, potassium 3.4, BUN 13, creatinine 1.2, glucose 97. (1) Anemia Anemia type: unspecified type Qualified Code(s): D64.9 - Anemia, unspecified
[2018-10-05 13:55] LABS: Hematocrit (blood only) 24.2 % (42-52); Hemoglobin 7.9 g/dL (14.0-18.0)
--- NOTE | 2018-10-05 14:10 | Anesthesiology Consultation ---
Date of Service October 05, 2018 Assessment & Plan (1) Encounter for pre-operative examination: Chart Review Chart Review: Acceptable Risk for Surgery and Patient NOT seen in Pre Admission Testing Consults Requested none History Surgery Operation Date: 10/05/18 09:30 Proposed Procedures p Colonoscopy EGD Dr. Miller - Ange Miller MD Height/Weight Height: 5 ft 10 in Weight: 102.2 kg Allergies Allergy/AdvReac Type Severity Reaction Status Date / Time adhesive Allergy Unknown RASH Verified 10/05/18 14:10 Medications Home Medications Medication Instructions Recorded Confirmed Last Taken cholecalciferol (vitamin D3) 2,000 unit PO DAILY #0 02/19/15 10/05/18 10/03/18 simvastatin 20 mg PO DAILY #0 02/19/15 10/05/18 10/03/18 finasteride 5 mg PO DAILY #0 tab 02/26/16 10/05/18 10/03/18 metoprolol tartrate 25 mg PO BID #0 02/26/16 10/05/18 10/03/18 tamsulosin 0.4 mg PO DAILY #0 cap 02/26/16 10/05/18 10/03/18 ferrous sulfate 325 mg PO DAILY #0 05/31/17 10/05/18 10/03/18 warfarin [Jantoven] 3 mg PO 3XWK #0 05/31/17 10/05/18 10/01/18 warfarin [Jantoven] 3 mg PO 4XWK #0 05/31/17 10/05/18 10/03/18 amlodipine 5 mg PO DAILY 10/03/18 10/05/18 10/03/18 benazepril-hydrochlorothiazide 1 tab PO DAILY 10/03/18 10/05/18 10/03/18 calcium carbonate [Calcium 500] 500 mg PO DAILY 10/03/18 10/05/18 10/03/18 levothyroxine 50 mcg PO DAILY 10/03/18 10/05/18 10/03/18 Active Medications Generic Name Dose Route Start Last Admin Trade Name Freq PRN Reason Stop Dose Admin Ferrous Sulfate 325 mg 10/04/18 09:00 10/05/18 08:53 Feosol PO 11/03/18 08:59 Not Given DAILY DONALD Finasteride 5 mg 10/04/18 09:00 10/05/18 08:53 Proscar PO 11/03/18 08:59 5 mg DAILY DONALD Administration Sodium Chloride 1,000 mls @ 125 mls/hr 10/03/18 17:10 10/05/18 13:31 Nss 1000ml IV 11/02/18 17:09 125 mls/hr .Q8H DONALD Administration Famotidine 20 mg/ Syringe 5 mls @ 2.5 mls/min 10/03/18 21:00 10/05/18 08:54 IV 11/02/18 20:59 2.5 mls/min BID DONALD Administration Heparin Sodium/Dextrose 25,000 units in 500 mls @ 27 mls/hr 10/04/18 19:45 10/05/18 08:38 Heparin Sodium/Dextrose IV 11/03/18 19:44 0 units/hr .[id number] DONALD 0 mls/hr Titration Protocol 1,350 UNITS/HR Levothyroxine Sodium 50 mcg 10/04/18 06:30 10/05/18 05:47 Synthroid PO 11/03/18 06:29 50 mcg DAILYBB DONALD Administration Pantoprazole Sodium 40 mg 10/04/18 21:00 10/05/18 08:53 Protonix PO 11/03/18 20:59 40 mg BID DONALD Administration Simvastatin 20 mg 10/04/18 09:00 10/05/18 08:53 Zocor PO 11/03/18 08:59 20 mg DAILY DONALD Administration Tamsulosin HCl 0.4 mg 10/04/18 09:00 10/05/18 08:53 Flomax PO 11/03/18 08:59 0.4 mg DAILY DONALD Administration NPO Date Last Intake of Fluids: 10/05/18 Time Last Intake of Fluids: 00:01 Date Last Intake of Solids: 10/03/18 Past Medical History Medical History Pacemaker HLD (hyperlipidemia) HTN (hypertension) Hypokalemia Hyponatremia GI bleed (Acute) Anemia (Acute) Dizziness MGUS (monoclonal gammopathy of unknown significance) Exercise / Class Metabolic Activity II 4-5 Yardwork/Stairs/Walk up hill Past Family History Family History Other Hypertension Past Surgical History Surgical History H/O mitral valve replacement with mechanical valve S/P hemorrhoidectomy Past Anesthesia History No Hx of Anesthesia Complications and No Family Hx of Anesthesia Complications History of PONV No Hx of PONV and No Hx of Motion Sickness Social History Smoking Status: Never smoker Hx Alcohol Use: No Hx Substance Use: No Physical Exam Vital Signs Last Vital Signs Temp 36.6 C 10/05/18 14:15 Pulse 63 10/05/18 14:15 Resp 18 10/05/18 14:15 BP 170/67 H 10/05/18 14:15 Pulse Ox 99 10/05/18 14:15 Testing Laboratory Results 10/05/18 13:42 10/05/18 01:32 PT 15.1 Seconds (9.0-12.0) H 10/05/18 08:17 PT Cancelled 10/05/18 08:17 INR 1.5 (0.9-1.1) H 10/05/18 08:17 INR Cancelled 10/05/18 08:17 APTT 88.5 Seconds (21.0-31.0) H* 10/05/18 08:17 Blood Type B Positive 10/03/18 13:55 Antibody Screen NEGATIVE 10/03/18 13:55 Electrocardiogram Date: 10/03/18 HR 79 Ventricular-paced rhythm Underlying atrial fibrillation Abnormal ECG When compared with ECG of 29-FEB-2016 17:14, No significant change was found Confirmed by Vasquez Connell ([id number]) on 10/03/2018 4:24:49 PM
[2018-10-05] MEDS ORDERED: PROPOFOL IV EMULSION 10 MG/ML 20 ML VIAL IV ONE (15:29)
[2018-10-05] MEDS ORDERED: LIDOCAINE HCL 2% 2 ML VIAL/AMP(20MG/ML) INFIL ONE (15:29)
--- NOTE | 2018-10-05 15:29 | GI REPORT ---
Patient Name: Yamilex Finney Procedure Date: 10/05/2018 2:59 PM Date of : 1945 Admit Type: Inpatient Age: 73 Gender: Male Attending MD: Ange Miller MD Procedure: Upper GI endoscopy Providers: Ange Miller MD Referring MD: Juanito Tran M.d. Indications: Anemia Medicines: Monitored Anesthesia Care Complications: No immediate complications. Estimated Blood Loss: Estimated blood loss: none. Procedure: Pre-Anesthesia Assessment: - Prior to the procedure, a History and Physical was performed, and patient medications and allergies were reviewed. The patient is competent. The risks and benefits of the procedure and the sedation options and risks were discussed with the patient. All questions were answered and informed consent was obtained. Patient identification and proposed procedure were verified by the physician and the nurse in the procedure room. Mental Status Examination: alert and oriented. Airway Examination: normal oropharyngeal airway and neck mobility. Respiratory Examination: clear to auscultation. CV Examination: normal. ASA Grade Assessment: III - A patient with severe systemic disease. After reviewing the risks and benefits, the patient was deemed in satisfactory condition to undergo the procedure. The anesthesia plan was to use monitored anesthesia care (MAC). Immediately prior to administration of medications, the patient was re-assessed for adequacy to receive sedatives. The heart rate, respiratory rate, oxygen saturations, blood pressure, adequacy of pulmonary ventilation, and response to care were monitored throughout the procedure. The physical status of the patient was re-assessed after the procedure. After obtaining informed consent, the endoscope was passed under direct vision. Throughout the procedure, the patient's blood pressure, pulse, and oxygen saturations were monitored continuously. The Endoscope was introduced through the mouth, and advanced to the second part of duodenum. The upper GI endoscopy was accomplished without difficulty. The patient tolerated the procedure well. Findings: The examined esophagus was normal. Mild inflammation characterized by erosions and erythema was found in the gastric body. Biopsies were taken with a cold forceps for Helicobacter pylori testing. Verification of patient identification for the specimen was done by the physician and nurse using the patient's name and date. The duodenal bulb and second portion of the duodenum were normal. Biopsies were taken with a cold forceps for histology. Impression: - Normal esophagus. - Gastritis. Biopsied. - Normal duodenal bulb and second portion of the duodenum. Biopsied. Recommendation: - Await pathology results. - Perform a colonoscopy today. Ange Miller MD 10/05/2018 3:29:08 PM This report has been signed electronically. Note Initiated On: 10/05/2018 2:59 PM Number of Addenda: 0 I attest to the content of the Intraoperative Record and orders documented therein, exceptions below {[id number]}
--- NOTE | 2018-10-05 15:33 | GI REPORT ---
Addendum Number: 1 Addendum Date: 10/05/2018 5:17:24 PM patient has a pacemaker hence VCE is contraindicated. Ange Miller MD 10/05/2018 5:17:48 PM This report has been signed electronically. Patient Name: Yamilex Finney Procedure Date: 10/05/2018 3:00 PM Date of : 1945 Admit Type: Inpatient Age: 73 Gender: Male Attending MD: Ange Miller MD Procedure: Colonoscopy Providers: Ange Miller MD Referring MD: Juanito Tran M.d. Indications: Anemia Medicines: Monitored Anesthesia Care Complications: No immediate complications. Estimated Blood Loss: Estimated blood loss: none. Procedure: Pre-Anesthesia Assessment: - Prior to the procedure, a History and Physical was performed, and patient medications and allergies were reviewed. The patient is competent. The risks and benefits of the procedure and the sedation options and risks were discussed with the patient. All questions were answered and informed consent was obtained. Patient identification and proposed procedure were verified by the physician and the nurse in the procedure room. Mental Status Examination: alert and oriented. Airway Examination: normal oropharyngeal airway and neck mobility. Respiratory Examination: clear to auscultation. CV Examination: normal. ASA Grade Assessment: III - A patient with severe systemic disease. After reviewing the risks and benefits, the patient was deemed in satisfactory condition to undergo the procedure. The anesthesia plan was to use monitored anesthesia care (MAC). Immediately prior to administration of medications, the patient was re-assessed for adequacy to receive sedatives. The heart rate, respiratory rate, oxygen saturations, blood pressure, adequacy of pulmonary ventilation, and response to care were monitored throughout the procedure. The physical status of the patient was re-assessed after the procedure. After I obtained informed consent, the scope was passed under direct vision. Throughout the procedure, the patient's blood pressure, pulse, and oxygen saturations were monitored continuously. The Colonoscope was introduced through the anus and advanced to the terminal ileum. The quality of the bowel preparation was good. The terminal ileum, ileocecal valve, appendiceal orifice, and rectum were photographed. Findings: The perianal and digital rectal examinations were normal. The terminal ileum appeared normal. Non-bleeding external and internal hemorrhoids were found during retroflexion. The hemorrhoids were small. The exam was otherwise without abnormality. Impression: - The examined portion of the ileum was normal. - Non-bleeding external and internal hemorrhoids. - The examination was otherwise normal. No bleeding. - No specimens collected. Recommendation: - Return patient to [facility] for ongoing care. - Resume regular diet. - To visualize the small bowel, perform video capsule endoscopy as OP. - Can resume anticoagulation. - Preparation H suppository: Insert rectally BID for 1 week. Ange Miller MD 10/05/2018 3:32:37 PM This report has been signed electronically. Note Initiated On: 10/05/2018 3:00 PM Number of Addenda: 1 I attest to the content of the Intraoperative Record and orders documented therein, exceptions below {[id number]}
--- NOTE | 2018-10-05 15:52 | Anesthesiology Progress Note ---
Date of Service October 05, 2018 Anesthesia Post Procedure Vital Signs Vital Signs: Temp Pulse Pulse Resp BP BP Pulse Ox 10/05/18 15:35 36.6 C 64 16 135/69 99 10/05/18 14:15 36.6 C 63 18 170/67 H 99 10/05/18 10:59 36.6 C 60 24 148/70 H 96 10/05/18 07:39 36.8 C 60 20 152/70 H 97 10/05/18 04:36 60 139/68 10/05/18 03:01 36.4 C L 61 19 160/72 H 98 10/05/18 00:28 60 135/70 10/04/18 23:45 36.9 C 66 20 170/74 H 98 Transfer of Care Handoff Completed per policy Notes Mental Status: alert / awake / arousable and participated in evaluation Patient Amnestic to Procedure: Yes Nausea / Vomiting: adequately controlled Pain: adequately controlled Airway Patency, RR, SpO2: stable & adequate BP & HR: stable & adequate Hydration State: stable & adequate Anesthetic Complications: no major complications apparent and Pt Satisfied with anesthetic care
--- NOTE | 2018-10-05 17:19 | Progress Note ---
Date of Service October 05, 2018 Subjective EGD and colonoscopy with no source of blood loss. Need Hematology evaluation for non GI etiology, could be related to his heart valve. He has Hemorrhoids hence can use suppositories. No VCE as he has PPM. Recall GI if needed. Results & Data Vital Signs (Past 12 Hours) Vital Signs Temp Pulse Pulse Resp BP BP Pulse Ox 10/05/18 16:00 62 16 134/72 98 10/05/18 15:50 36.6 C 60 16 152/70 H 98 10/05/18 15:35 36.6 C 64 16 135/69 99 10/05/18 14:15 36.6 C 63 18 170/67 H 99 10/05/18 10:59 36.6 C 60 24 148/70 H 96 10/05/18 07:39 36.8 C 60 20 152/70 H 97
[2018-10-05] MEDS ORDERED: Heparin IV Standard *NO* Bolus IV ONE (18:09)
[2018-10-05] MEDS: Heparin Adult STANDARD Wt-Based Dextrose 5% 25,000 units/500 mL IV SCH ×2 (18:27→23:15)
[2018-10-05] MEDS ORDERED: ANUSOL SUPP 1 EA PR ONE (18:30)
--- NOTE | 2018-10-05 23:38 | Hospitalist Progress Note ---
Date of Service October 05, 2018 Assessment & Plan (1) Acute blood loss anemia: Patient admitted for a GI bleed. Appears to be lower GI. Will have colonoscopy and upper GI later today. Patient has not had signs of currently having large amounts of blood in his stools. And hemoglobin has been relatively stable. will continue PPI. (2) GI bleed: (3) Anemia: (4) Dizziness: -Famotidine 20 mg BID -Blood consent, type and screen obtained in the ER -trop x 3 negative. Patient will likely need upper and lower endoscopy. Likely diverticular bleed. (5) MGUS (monoclonal gammopathy of unknown significance): -Noted, stable (6) Hyponatremia: improved (7) Hypokalemia: improved. will monitor. (8) HTN (hypertension): BP stable. will monitor. (9) HLD (hyperlipidemia): (10) H/O mitral valve replacement with mechanical valve: Despite GI bleed. Placed on heprain IV. INR had been therapeutic. But recevied vitamin K for the colonoscopy. (11) Pacemaker: -Holding all antihypertensives -Continue simvastatin Ordered vitamin K. On heparin drip. (12) DVT prophylaxis: Heparin Spent 35 minutes in management of patient. Subjective Patient seen prior to getting EGD. Patient reports no nausea, vomiting. Patient states he has not had significant blood in his stools Review of Systems 2 Review of Systems: Constitutional: No fever, sweats or chills, + fatigue and dizziness Eyes: No diplopia, no worsening or blurred vision ENT: normal hearing, no trouble swallowing Respiratory: No cough, sputum, dyspnea at rest or on exertion Cardiovascular: No chest pain, tightness or palpitations Abdomen: No pain, nausea, vomiting, diarrhea or constipation Musculoskeletal: No joint pain, calf pain, swelling Neurologic: Chronic left-sided weakness s/p CVA, uses cane at baseline, numbness/tingling, or balance problems Psychiatric: No anxiety or depression Skin: No rash or itch Physical Exam Physical Exam: General: awake, alert, no apparent distress Head: Normocephalic, atraumatic ENT: PERRL, EOMI, no pharyngeal exudate, mucous membranes moist Chest: Clear to auscultation, on room air, no adventitious breath sounds Cardiac: Regular rate and rhythm, no murmur, + valve click, no JVD, normal peripheral pulses, good capillary refill Abdominal: NABS x 4 quadrants, soft, +slightly distended, nontender to palpation, no rebound, guarding or tenderness Extremities: Normal inspection, no peripheral edema or erythema, calfs nontender to palpation Psych: Normal mood and affect Neuro: AAO x 3, no gross motor deficits, speech is clear Skin: no rash or erythema Results & Data Vital Signs (Past 12 Hours) Vital Signs Temp Pulse Pulse Pulse Resp BP BP 10/05/18 23:27 36.9 C 60 18 157/70 H 10/05/18 18:45 36.8 C 60 20 161/77 H 10/05/18 16:35 84 10/05/18 16:00 62 16 134/72 10/05/18 15:50 36.6 C 60 16 152/70 H 10/05/18 15:35 36.6 C 64 16 135/69 10/05/18 14:15 36.6 C 63 18 170/67 H Pulse Ox 10/05/18 23:27 97 10/05/18 18:45 97 10/05/18 16:35 10/05/18 16:00 98 10/05/18 15:50 98 10/05/18 15:35 99 10/05/18 14:15 99 PG Care Time/CCT Total # of Minutes Spent Total Time Spent with Patient: Total time spent is greater than 50% in coordination of care (as documented) at patient's floor/unit and/or counseling patient: (1) GI bleed GI bleed type/associated pathology: unspecified gastrointestinal hemorrhage type Qualified Code(s): K92.2 - Gastrointestinal hemorrhage, unspecified (2) Anemia Anemia type: unspecified type Qualified Code(s): D64.9 - Anemia, unspecified
[2018-10-06 01:50] LABS: Partial Thromboplastin Ratio 2.1
[2018-10-06 02:01] LABS: Partial Thromboplastin Time 56.9 Seconds (21.0-31.0)
[2018-10-06] MEDS: LEVOTHYROXINE SODIUM 50 MCG TABLET PO SCH (05:51)
[2018-10-06 06:11] LABS: Hematocrit (blood only) 21.6 % (42-52); Mean Corpuscular Hgb Conc 32.4 g/dL (32-36); Mean Corpuscular Volume 86.4 fL (80-100); Mean Platelet Volume 9.3 fL (7.4-10.4); Platelet Count 154 K/uL (130-400); RDW Coefficient of Variation 14.2 % (11.5-14.5); RDW Standard Deviation 44.8 fL (36.4-46.3)
[2018-10-06 06:22] LABS: INR 1.3 (0.9-1.1); Prothrombin Time 12.9 Seconds (9.0-12.0)
[2018-10-06 06:46] LABS: Albumin Level 2.8 gm/dl (3.4-5.0); BUN Creatinine Ratio 8.4 (10-20); Calcium 7.6 mg/dl (8.5-10.1); Creatinine Clr Calc Pharmacy 65.1 ml/min; Est GFR (Non-African American) 58.7; Potassium 3.2 mmol/L (3.5-5.1)
[2018-10-06 06:48] LABS: Albumin Globulin Ratio 0.8 (0.9-2); Bilirubin,Total 0.7 mg/dl (0.2-1); Globulin 3.4 gm/dl (2.5-4.0); Total Protein 6.2 gm/dl (6.4-8.2)
[2018-10-06] MEDS: FINASTERIDE 5 MG TAB PO SCH (08:04)
[2018-10-06] MEDS: PANTOprazole 40 MG TAB PO SCH ×2 (08:04→19:42)
[2018-10-06] MEDS: SIMVASTATIN 20 MG TAB PO SCH (08:04)
[2018-10-06] MEDS: ANUSOL SUPP 1 EA PR SCH ×2 (08:04→19:41)
[2018-10-06] MEDS: FERROUS SULFATE 325 MG TAB PO SCH (08:04)
[2018-10-06] MEDS: TAMSULOSIN HCL 0.4 MG CAP PO SCH (08:04)
[2018-10-06] MEDS: FAMOTIDINE 20 MG in SYRINGE 3 ML IV SCH ×2 (08:06→19:45)
[2018-10-06] MEDS ORDERED: WARFARIN SOD 4 MG TAB PO ONE (08:42)
[2018-10-06] MEDS ORDERED: SODIUM CHLORIDE 0.9% 250 ML IV PRN (11:38)
[2018-10-06] MEDS: BENAZEPRIL HCL 10 MG TAB PO SCH (12:00)
[2018-10-06] MEDS: METOPROLOL TARTRATE 25 MG TAB PO SCH ×2 (12:00→19:41)
[2018-10-06] MEDS: hydroCHLOROthiazide 25 MG TAB PO SCH (12:00)
[2018-10-06] MEDS: Heparin Adult STANDARD Wt-Based Dextrose 5% 25,000 units/500 mL IV SCH (18:30)
--- NOTE | 2018-10-06 23:15 | Hospitalist Progress Note ---
Date of Service October 06, 2018 Assessment & Plan (1) Acute blood loss anemia: Patient admitted for a GI bleed. Appears to be lower GI. Completed upper and lower GI scopes. Both were clean. GI recommends outpatient capsule endoscopy. Patient has not had signs of currently having large amounts of blood in his stools. And hemoglobin has been relatively stable. will continue PPI. As hemoglobin is 7., will trnsfuse 2 PRBC. Will continue to monitor. (2) GI bleed: (3) Anemia: (4) Dizziness: -Famotidine 20 mg BID -Blood consent, type and screen obtained in the ER -trop x 3 negative. Patient will likely need upper and lower endoscopy. Likely diverticular bleed. (5) MGUS (monoclonal gammopathy of unknown significance): -Noted, stable (6) Hyponatremia: improved (7) Hypokalemia: improved. will monitor. (8) HTN (hypertension): BP stable. will monitor. (9) HLD (hyperlipidemia): (10) H/O mitral valve replacement with mechanical valve: Despite GI bleed. Placed on heparin IV. INR had been therapeutic. But received vitamin K for the colonoscopy. Will order 4 mg of coumadin today. Patient normally takes 3 mg daily. (11) Pacemaker: -Holding all antihypertensives -Continue simvastatin (12) DVT prophylaxis: Heparin Spent 35 minutes in management of patient Will transfuse 2 units of PRBC Subjective Patient reports doing well. He reports no new complaints. He states he has noticed some blood in his stools, but it has decreased in amount. History is obtained as son is in room. Review of Systems Review of Systems: All systems reviewed & are unremarkable except as noted in HPI & below Physical Exam Physical Exam: General: awake, alert, no apparent distress Head: Normocephalic, atraumatic ENT: PERRL, EOMI, no pharyngeal exudate, mucous membranes moist Chest: Clear to auscultation, on room air, no adventitious breath sounds Cardiac: Regular rate and rhythm, no murmur, + valve click, no JVD, normal peripheral pulses, good capillary refill Abdominal: NABS x 4 quadrants, soft, nontender to palpation, no rebound, guarding or tenderness Extremities: Normal inspection, no peripheral edema or erythema, calfs nontender to palpation Psych: Normal mood and affect Neuro: AAO x 3, no gross motor deficits, speech is clear Skin: no rash or erythema Results & Data Vital Signs (Past 12 Hours) Vital Signs Temp Pulse Pulse Resp BP BP BP 10/06/18 18:56 37.0 C 60 18 144/88 H 10/06/18 18:25 36.9 C 60 20 149/73 H 10/06/18 17:45 37.1 C 60 16 128/66 10/06/18 17:18 37.2 C 60 19 138/68 10/06/18 16:44 36.8 C 60 21 141/81 H 10/06/18 16:32 37.1 C 60 21 151/73 H 10/06/18 16:24 37.3 C 60 97 H 134/65 10/06/18 16:08 60 24 147/73 H 10/06/18 16:05 60 19 160/86 H 10/06/18 16:04 60 25 H 160/86 H 10/06/18 16:02 60 21 147/73 H 10/06/18 16:01 60 17 147/73 H 10/06/18 16:00 60 25 H 147/73 H 10/06/18 15:58 60 20 147/73 H 10/06/18 15:57 60 20 147/73 H 10/06/18 15:55 60 24 147/73 H 10/06/18 15:54 60 24 147/73 H 10/06/18 14:54 60 19 142/71 H 10/06/18 14:50 60 22 142/71 H 10/06/18 14:24 60 19 142/71 H 10/06/18 14:09 37.3 C 60 22 150/71 H 10/06/18 13:54 37.4 C 61 22 148/77 H 10/06/18 11:21 36.9 C 63 20 171/81 H Pulse Ox 10/06/18 18:56 98 10/06/18 18:25 98 10/06/18 17:45 99 10/06/18 17:18 97 10/06/18 16:44 98 10/06/18 16:32 97 10/06/18 16:24 10/06/18 16:08 98 10/06/18 16:05 98 10/06/18 16:04 98 10/06/18 16:02 99 10/06/18 16:01 98 10/06/18 16:00 98 10/06/18 15:58 98 10/06/18 15:57 99 10/06/18 15:55 98 10/06/18 15:54 98 10/06/18 14:54 98 10/06/18 14:50 98 10/06/18 14:24 98 10/06/18 14:09 99 10/06/18 13:54 100 10/06/18 11:21 96 PG Care Time/CCT Total # of Minutes Spent Total Time Spent with Patient: Total time spent is greater than 50% in coordination of care (as documented) at patient's floor/unit and/or counseling patient: (1) GI bleed GI bleed type/associated pathology: unspecified gastrointestinal hemorrhage type Qualified Code(s): K92.2 - Gastrointestinal hemorrhage, unspecified (2) Anemia Anemia type: unspecified type Qualified Code(s): D64.9 - Anemia, unspecified
[2018-10-07] MEDS: LEVOTHYROXINE SODIUM 50 MCG TABLET PO SCH (04:25)
[2018-10-07 07:37] LABS: Partial Thromboplastin Ratio 3.7
[2018-10-07 07:48] LABS: Partial Thromboplastin Time 99.6 Seconds (21.0-31.0)
[2018-10-07] MEDS: TAMSULOSIN HCL 0.4 MG CAP PO SCH (08:44)
[2018-10-07] MEDS: BENAZEPRIL HCL 10 MG TAB PO SCH (08:44)
[2018-10-07] MEDS: PANTOprazole 40 MG TAB PO SCH ×2 (08:44→19:39)
[2018-10-07] MEDS: SIMVASTATIN 20 MG TAB PO SCH (08:44)
[2018-10-07] MEDS: ANUSOL SUPP 1 EA PR SCH ×2 (08:44→19:38)
[2018-10-07] MEDS: FERROUS SULFATE 325 MG TAB PO SCH (08:44)
[2018-10-07] MEDS: hydroCHLOROthiazide 25 MG TAB PO SCH (08:44)
[2018-10-07] MEDS: FINASTERIDE 5 MG TAB PO SCH (08:44)
[2018-10-07] MEDS: METOPROLOL TARTRATE 25 MG TAB PO SCH ×2 (08:44→19:39)
[2018-10-07 09:10] LABS: Hematocrit (blood only) 26.7 % (42-52); Hemoglobin 8.8 g/dL (14.0-18.0); Mean Corpuscular Volume 84.2 fL (80-100); Mean Platelet Volume 8.7 fL (7.4-10.4); Platelet Count 139 K/uL (130-400); RDW Coefficient of Variation 14.8 % (11.5-14.5); RDW Standard Deviation 44.9 fL (36.4-46.3); Red Blood Count 3.17 M/uL (4.7-6.1)
[2018-10-07] MEDS: FAMOTIDINE 20 MG in SYRINGE 3 ML IV SCH ×2 (09:15→19:38)
[2018-10-07 09:30] LABS: INR 1.2 (0.9-1.1); Prothrombin Time 12.3 Seconds (9.0-12.0)
[2018-10-07 09:47] LABS: BUN Creatinine Ratio 8.6 (10-20); Calcium 8.5 mg/dl (8.5-10.1); Creatinine Clr Calc Pharmacy 67.9 ml/min; Est GFR (African American) 71.5; Est GFR (Non-African American) 61.7; Potassium 3.3 mmol/L (3.5-5.1)
[2018-10-07 14:15] LABS: Partial Thromboplastin Ratio 2.4
[2018-10-07 14:21] LABS: Partial Thromboplastin Time 65.5 Seconds (21.0-31.0)
[2018-10-07] MEDS: Heparin Adult STANDARD Wt-Based Dextrose 5% 25,000 units/500 mL IV SCH (14:50)
[2018-10-07] MEDS ORDERED: WARFARIN SOD 4 MG TAB PO ONE (16:00)
[2018-10-07] MEDS: POTASSIUM CHLORIDE 20 MEQ TABCR PO SCH (19:40)
--- NOTE | 2018-10-07 22:53 | Hospitalist Progress Note ---
Date of Service October 07, 2018 Assessment & Plan (1) Acute blood loss anemia: Patient admitted for a GI bleed. Appears to be lower GI. Completed upper and lower GI scopes. Both were clean. GI recommends outpatient capsule endoscopy. Also recommend hemo/onc workup but doubt it as labs do not point towards hemolysis from mecanical valve. In addition, patient has been having GI bleed. Patient has not had signs of currently having large amounts of blood in his stools recently. But nurse noted a large episode of blood 2 nights ago. Hemoglobin has been relatively stable, but he did require 2 PRBC, which improved level by 1.8 will continue PPI. Will continue to monitor. (2) GI bleed: (3) Anemia: (4) Dizziness: -Famotidine 20 mg BID -Blood consent, type and screen obtained in the ER -trop x 3 negative. Patient will likely need upper and lower endoscopy. Likely diverticular bleed. (5) MGUS (monoclonal gammopathy of unknown significance): -Noted, stable (6) Hyponatremia: improved (7) Hypokalemia: improved. will monitor. (8) HTN (hypertension): BP stable. will monitor. (9) HLD (hyperlipidemia): (10) H/O mitral valve replacement with mechanical valve: Despite GI bleed. Placed on heparin IV. INR had been therapeutic. But received vitamin K for the colonoscopy. Will order 4 mg of coumadin today. This is second day of 4 mg of coumadin. Will recommend resuming home dose of 3 mg from now going forward. Patient normally takes 3 mg daily. (11) Pacemaker: -Holding all antihypertensives -Continue simvastatin (12) DVT prophylaxis: Heparin Subjective Pleasant 73 yo male reports no blood in stools today. D/W nurse who states that the night of 10/05 to 10/06 he had a large BM with blood. But has not been the case since. 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, numbness/tingling, or balance problems Psychiatric: No anxiety or depression Skin: No rash or itch Physical Exam Physical Exam: General: awake, alert, no apparent distress Head: Normocephalic, atraumatic ENT: PERRL, EOMI, no pharyngeal exudate, mucous membranes moist Chest: Clear to auscultation, on room air, no adventitious breath sounds Cardiac: Regular rate and rhythm, no murmur, + valve click, no JVD, normal peripheral pulses, good capillary refill Abdominal: NABS x 4 quadrants, soft, nontender to palpation, no rebound, gu arding or tenderness Extremities: Normal inspection, no peripheral edema or erythema, calfs nontender to palpation Psych: Normal mood and affect Neuro: AAO x 3, no gross motor deficits, speech is clear Skin: no rash or erythema Results & Data Vital Signs (Past 12 Hours) Vital Signs Temp Pulse Resp BP Pulse Ox 10/07/18 19:23 36.6 C 69 19 145/69 H 96 10/07/18 15:42 36.8 C 60 19 150/91 H 98 10/07/18 11:50 36.5 C 60 16 149/72 H 98 PG Care Time/CCT Total # of Minutes Spent Total Time Spent with Patient: Total time spent is greater than 50% in coordination of care (as documented) at patient's floor/unit and/or counseling patient: (1) GI bleed GI bleed type/associated pathology: unspecified gastrointestinal hemorrhage type Qualified Code(s): K92.2 - Gastrointestinal hemorrhage, unspecified (2) Anemia Anemia type: unspecified type Qualified Code(s): D64.9 - Anemia, unspecified
[2018-10-08 05:45] LABS: Mean Corpuscular Hgb Conc 33.3 g/dL (32-36); Mean Corpuscular Volume 84.2 fL (80-100); Mean Platelet Volume 9.3 fL (7.4-10.4); Platelet Count 141 K/uL (130-400); RDW Coefficient of Variation 14.6 % (11.5-14.5); RDW Standard Deviation 44.5 fL (36.4-46.3); Red Blood Count 2.85 M/uL (4.7-6.1); White Blood Count 3.68 K/uL (4.8-10.8)
[2018-10-08] MEDS: LEVOTHYROXINE SODIUM 50 MCG TABLET PO SCH (06:15)
[2018-10-08 06:26] LABS: INR 1.3 (0.9-1.1); Partial Thromboplastin Ratio 2.7
[2018-10-08 06:42] LABS: Partial Thromboplastin Time 72.7 Seconds (21.0-31.0)
[2018-10-08] MEDS: BENAZEPRIL HCL 10 MG TAB PO SCH (09:06)
[2018-10-08] MEDS: FINASTERIDE 5 MG TAB PO SCH (09:06)
[2018-10-08] MEDS: SIMVASTATIN 20 MG TAB PO SCH (09:10)
[2018-10-08] MEDS: hydroCHLOROthiazide 25 MG TAB PO SCH (09:10)
[2018-10-08] MEDS: METOPROLOL TARTRATE 25 MG TAB PO SCH ×2 (09:10→20:29)
[2018-10-08] MEDS: PANTOprazole 40 MG TAB PO SCH ×2 (09:10→20:28)
[2018-10-08] MEDS: TAMSULOSIN HCL 0.4 MG CAP PO SCH (09:10)
[2018-10-08] MEDS: FERROUS SULFATE 325 MG TAB PO SCH (09:11)
[2018-10-08] MEDS: ANUSOL SUPP 1 EA PR SCH ×2 (09:11→20:29)
[2018-10-08] MEDS: POTASSIUM CHLORIDE 20 MEQ TABCR PO SCH ×2 (09:11→20:28)
[2018-10-08] MEDS: FAMOTIDINE 20 MG in SYRINGE 3 ML IV SCH ×2 (09:12→20:29)
[2018-10-08] MEDS: Heparin Adult STANDARD Wt-Based Dextrose 5% 25,000 units/500 mL IV SCH (15:10)
[2018-10-08] MEDS ORDERED: WARFARIN SOD 4 MG TAB PO ONE (15:11)
--- NOTE | 2018-10-08 15:15 | Hospitalist Progress Note ---
Date of Service October 08, 2018 Assessment & Plan (1) Acute blood loss anemia: GI bleeding. EGD and colonoscopy negative for source of bleeding. Should have small bowel study done when possible, right now there is no acuity for a tagged red cell scan or double balloon enteroscopy, follow hemoglobin, outpatient work-up if stable. Will be following his hemoglobin as we continue to get him back up to speed on his Coumadin for his mechanical valve. (2) GI bleed: See above. Small bowel will need to be evaluated when possible. (3) Anemia: Continue to follow, no indications for transfusion at this time. No active bleeding ongoing. (4) Dizziness: Seems to have improved. (5) MGUS (monoclonal gammopathy of unknown significance): -Noted, stable (6) Hyponatremia: improved. (7) Hypokalemia: improved. (8) HTN (hypertension): BP's reasonable. continue to follow (9) HLD (hyperlipidemia): (10) H/O mitral valve replacement with mechanical valve: normally anticoagulated w coumadin 3mg daily obviously w valve replacement anticoagulation should be continued in spite of bleeding unless recurs with significance. right now none. continue heparin gtt, titrate coumadin. (11) Pacemaker: (12) DVT prophylaxis: anticoagulation Subjective Some of the history is translated by the son, which is the patient and preferred method No new complaints or problems. Patient notes that he got out of bed to go to the bathroom twice a far today once with just a tiny bit of blood, and then the other time bowel movement no blood. He does not seem to have any weakness lightheadedness or dyspnea. Review of Systems Review of Systems: All systems reviewed & are unremarkable except as noted in HPI & below Physical Exam Physical Exam: General he is awake and alert pleasant no distress. HEENT normocephalic atraumatic mucous membranes moist. Breathing unlabored no accessory muscle use good effort. Skin shows no rashes no pallor or icterus. Mental status shows good recent and remote recall normal mood and affect good judgment and insight. Results & Data Vital Signs (Past 12 Hours) Vital Signs Temp Pulse Resp BP BP Pulse Ox 10/08/18 12:41 37.5 C 60 17 156/72 H 96 10/08/18 07:38 37.3 C 62 19 160/73 H 98 10/08/18 03:57 36.9 C 60 17 133/73 97 PG Care Time/CCT Total # of Minutes Spent Total Time Spent with Patient: Total time spent is greater than 50% in coordination of care (as documented) at patient's floor/unit and/or counseling patient: (1) GI bleed GI bleed type/associated pathology: unspecified gastrointestinal hemorrhage type Qualified Code(s): K92.2 - Gastrointestinal hemorrhage, unspecified (2) Anemia Anemia type: unspecified type Qualified Code(s): D64.9 - Anemia, unspecified
[2018-10-09] MEDS: LEVOTHYROXINE SODIUM 50 MCG TABLET PO SCH (06:29)
[2018-10-09 06:56] LABS: Basophils # (auto) 0.02 K/uL (0-0.2); Basophils % (auto) 0.6 %; Eosinophils % (auto) 6.1 %; Hematocrit (blood only) 24.3 % (42-52); Immature Granulocytes # (auto) 0.01 K/uL (0.00-0.02); Immature Granulocytes % (auto) 0.3 %; Lymphocytes # (auto) 0.59 K/uL (1.2-3.4); Lymphocytes % (auto) 18.1 %; Mean Corpuscular Hgb Conc 32.9 g/dL (32-36); Mean Corpuscular Volume 84.4 fL (80-100); Mean Platelet Volume 9.5 fL (7.4-10.4); Monocytes # (auto) 0.49 K/uL (0.11-0.59); Neutrophils # (auto) 1.95 K/uL (1.4-6.5); Neutrophils % (auto) 59.9 %; Platelet Count 143 K/uL (130-400); RDW Coefficient of Variation 14.6 % (11.5-14.5); RDW Standard Deviation 44.7 fL (36.4-46.3); Red Blood Count 2.88 M/uL (4.7-6.1); White Blood Count 3.26 K/uL (4.8-10.8)
[2018-10-09 07:18] LABS: INR 1.6 (0.9-1.1); Partial Thromboplastin Ratio 2.3; Prothrombin Time 15.7 Seconds (9.0-12.0)
[2018-10-09 07:19] LABS: Partial Thromboplastin Time 62.6 Seconds (21.0-31.0)
[2018-10-09] MEDS: FERROUS SULFATE 325 MG TAB PO SCH (08:10)
[2018-10-09] MEDS: TAMSULOSIN HCL 0.4 MG CAP PO SCH (08:10)
[2018-10-09] MEDS: FINASTERIDE 5 MG TAB PO SCH (08:11)
[2018-10-09] MEDS: BENAZEPRIL HCL 10 MG TAB PO SCH (08:11)
[2018-10-09] MEDS: hydroCHLOROthiazide 25 MG TAB PO SCH (08:11)
[2018-10-09] MEDS: METOPROLOL TARTRATE 25 MG TAB PO SCH ×2 (08:11→21:05)
[2018-10-09] MEDS: POTASSIUM CHLORIDE 20 MEQ TABCR PO SCH ×2 (08:11→21:05)
[2018-10-09] MEDS: SIMVASTATIN 20 MG TAB PO SCH (08:12)
[2018-10-09] MEDS: PANTOprazole 40 MG TAB PO SCH ×2 (08:12→21:05)
[2018-10-09] MEDS: ANUSOL SUPP 1 EA PR SCH ×2 (08:23→20:57)
[2018-10-09] MEDS: FAMOTIDINE 20 MG in SYRINGE 3 ML IV SCH ×2 (08:23→20:59)
--- NOTE | 2018-10-09 14:30 | Hospitalist Progress Note ---
Date of Service October 09, 2018 Assessment & Plan (1) Acute blood loss anemia: GI bleeding. EGD and colonoscopy negative for source of bleeding. Should have small bowel study done when possible, right now there is no acuity for a tagged red cell scan or double balloon enteroscopy, follow hemoglobin, outpatient work-up if stablethere is concern about whether or not a capsule endoscopy could be done with his pacemaker. In review of the literature this appears to be somewhat controversial so it is possible he could have a capsule endoscopy, versus needing an outpatient enteroscopy/small bowel follow- through/other study. Continue to follow hemoglobin while INR titrate up. (2) GI bleed: See above. Small bowel will need to be evaluated when possible. Seems to be stable (3) Anemia: Continue to follow, no indications for transfusion at this time. No active bleeding ongoing, the small amount of blood that he describes sounds much more hemorrhoidal than a true GI bleed (4) Dizziness: Improved (5) MGUS (monoclonal gammopathy of unknown significance): -Noted, stable (6) Hyponatremia: Outpatient follow-up of BMP (7) Hypokalemia: improved. (8) HTN (hypertension): BP's running reasonable. continue to follow (9) HLD (hyperlipidemia): (10) H/O mitral valve replacement with mechanical valve: normally anticoagulated w coumadin 3mg daily obviously w valve replacement anticoagulation should be continued in spite of bleeding unless recurs with significance. right now none. continue heparin gtt, titrate coumadin (gave 8 mg yesterday, will give for today). (11) Pacemaker: As above noted, not clear if this would interfere with the ability to collect data from a capsule endoscopy (12) DVT prophylaxis: anticoagulation Subjective Feeling about the same. No weakness no lightheadedness. Had a small amount of blood with bowel movement but nothing of significance that he thought. Discussed the case with patient and , and then reiterated through their son Kevin who is their preferred means of translation. Review of Systems Review of Systems: All systems reviewed & are unremarkable except as noted in HPI & below Physical Exam Physical Exam: In general he is awake and alert pleasant no distress. HEENT normocephalic atraumatic mucous membranes moist. Breathing unlabored no accessory muscle use good effort. Skin shows no rashes no pallor or icterus. Mental status shows good recent and remote recall normal mood. Results & Data Vital Signs (Past 12 Hours) Vital Signs Temp Pulse Resp BP Pulse Ox 10/09/18 11:34 36.8 C 63 20 137/80 98 10/09/18 07:42 37.0 C 62 20 156/82 H 97 PG Care Time/CCT Total # of Minutes Spent Total Time Spent with Patient: Total time spent is greater than 50% in coordination of care (as documented) at patient's floor/unit and/or counseling patient: (1) GI bleed GI bleed type/associated pathology: unspecified gastrointestinal hemorrhage type Qualified Code(s): K92.2 - Gastrointestinal hemorrhage, unspecified (2) Anemia Anemia type: unspecified type Qualified Code(s): D64.9 - Anemia, unspecified
[2018-10-09] MEDS ORDERED: WARFARIN SOD 4 MG TAB PO ONE (15:38)
[2018-10-10] MEDS: LEVOTHYROXINE SODIUM 50 MCG TABLET PO SCH (06:06)
[2018-10-10] MEDS: Heparin Adult STANDARD Wt-Based Dextrose 5% 25,000 units/500 mL IV SCH (06:11)
[2018-10-10 07:10] LABS: Basophils # (auto) 0.03 K/uL (0-0.2); Basophils % (auto) 0.7 %; Eosinophils # (auto) 0.31 K/uL (0-0.5); Eosinophils % (auto) 7.5 %; Hematocrit (blood only) 27.3 % (42-52); Immature Granulocytes # (auto) 0.01 K/uL (0.00-0.02); Immature Granulocytes % (auto) 0.2 %; Lymphocytes # (auto) 0.77 K/uL (1.2-3.4); Lymphocytes % (auto) 18.6 %; Mean Corpuscular Volume 87.2 fL (80-100); Mean Platelet Volume 9.3 fL (7.4-10.4); Monocytes # (auto) 0.59 K/uL (0.11-0.59); Monocytes % (auto) 14.3 %; Neutrophils # (auto) 2.42 K/uL (1.4-6.5); Neutrophils % (auto) 58.7 %; Platelet Count 162 K/uL (130-400); RDW Coefficient of Variation 14.9 % (11.5-14.5); RDW Standard Deviation 46.7 fL (36.4-46.3); Red Blood Count 3.13 M/uL (4.7-6.1); White Blood Count 4.13 K/uL (4.8-10.8)
[2018-10-10 07:27] LABS: INR 2.2 (0.9-1.1); Partial Thromboplastin Ratio 2.5; Prothrombin Time 20.9 Seconds (9.0-12.0)
[2018-10-10 07:47] LABS: Partial Thromboplastin Time 68.6 Seconds (21.0-31.0)
[2018-10-10] MEDS: PANTOprazole 40 MG TAB PO SCH (08:46)
[2018-10-10] MEDS: BENAZEPRIL HCL 10 MG TAB PO SCH (08:46)
[2018-10-10] MEDS: SIMVASTATIN 20 MG TAB PO SCH (08:46)
[2018-10-10] MEDS: METOPROLOL TARTRATE 25 MG TAB PO SCH (08:46)
[2018-10-10] MEDS: TAMSULOSIN HCL 0.4 MG CAP PO SCH (08:46)
[2018-10-10] MEDS: FERROUS SULFATE 325 MG TAB PO SCH (08:46)
[2018-10-10] MEDS: POTASSIUM CHLORIDE 20 MEQ TABCR PO SCH (08:46)
[2018-10-10] MEDS: ANUSOL SUPP 1 EA PR SCH (08:47)
[2018-10-10] MEDS: hydroCHLOROthiazide 25 MG TAB PO SCH (08:47)
[2018-10-10] MEDS: FINASTERIDE 5 MG TAB PO SCH (08:47)
[2018-10-10] MEDS: FAMOTIDINE 20 MG in SYRINGE 3 ML IV SCH (10:50)
[2018-10-10 14:18] LABS: Partial Thromboplastin Ratio 1.4; Partial Thromboplastin Time 38.2 Seconds (21.0-31.0)
--- NOTE | 2018-10-10 15:55 | Discharge Summary ---
Date of Service October 10, 2018 Admission HPI Per Admitting Provider This is a 73-year-old male with past medical history of MGUS, anemia, HTN, HLD, hypothyroidism, BPH, afib s/p pacemaker insertion in 2016 currently in NSR, mechanical MV placed 2004, who presents with occult GI bleed. Patient's son is at bedside provides majority of the history for the patient, as he speaks in broken Qatari. The bleeding started approximately 1 week ago and has progressed to the point where he has BRBPR at least 3 times per day, today he has had 2 bowel movements. Patient has been taking his regularly scheduled Coumadin, 3 mg alternating with 4.5 mg, last dose was last evening of 3 mg. He admits to dizziness x2 days and progressive fatigue over the last week. Patient denies any shortness of breath. Denies abdominal pain or cramping. Hgb= 8.5, sodium = 127, K+ = 3.4. Principal Diagnosis GI bleeding acute blood loss anemia requiring 2 units transfusion Discharge Exam General awake alert pleasant no distress. HEENT normocephalic atraumatic mucous members moist. Breathing unlabored no accessory muscle use good effort. Skin shows no rashes no pallor or icterus. Mental status shows good recent and remote recall normal mood and affect good judgment and insight. Discharge Data Allergies Allergy/AdvReac Type Severity Reaction Status Date / Time adhesive Allergy Unknown RASH Verified 10/05/18 14:10 Consultations 10/03/18 15:01 ED Decision to Admit Stat 10/03/18 17:10 Consult Case Management - Discharge Planning Routine Consult Gastroenterology Routine Procedures Performed Operation Date: 10/05/18 09:30 Actual Procedures p EGD Biopsy Cytology - Ange Miller MD s Colonoscopy - Ange Miller MD EGD without significant findings colo without active bleeding but did have internal and external hemorrhoids Hospital Course (1) Acute blood loss anemia: Related to GI bleeding. EGD and colonoscopy without any significant bleeding sources, although he did have internal and external hemorrhoids on colonoscopy. Certainly given his age small bowel study should be under taken to consider AVMs, but is also quite possible given his post scope spotting of blood that the major bleed was even hemorrhoidal and that the bleeding had simply stopped by the time of scope. -He has been anticoagulated for several days on a heparin drip, and this morning had a heparin drip going until his INR was found to be 2.2, in spite of all of this his hemoglobin has [place] to 9, and he has shown no significant recurrent bleeding, just the little bit of spotting consistent with hemorrhoids. Because of all of this he is stable for home. -Follow-up INR and hemoglobin tomorrow or Wednesday -Close follow-up with PCP and GI (2) GI bleed: See above. Small bowel will need to be evaluated when possible. Stable to do this as an outpatient. (3) Anemia: Required 2 units transfusion, now stable. (4) Dizziness: Improved (5) MGUS (monoclonal gammopathy of unknown significance): -Noted, stable (6) Hyponatremia: Outpatient follow-up of BMP (7) Hypokalemia: improved. (8) HTN (hypertension): stable for home on home meds (9) HLD (hyperlipidemia): (10) H/O mitral valve replacement with mechanical valve: Tolerated heparin drip and for re-titration of Coumadin to a therapeutic INR. We will discharged home on his regular dosing of Coumadin. Next INR tomorrow or Wednesday. (11) Pacemaker: not clear if this would interfere with the ability to collect data from a capsule endoscopy, outpatient GI follow-up (12) DVT prophylaxis: anticoagulation Total Time Total Time Spent Total Time Spent (In Minutes): Greater than 30 Discharge Plan Discharge Items Patient Disposition: Home - Home Health Services Reason For Visit: GI BLEED,ANEMIC Discharge Diagnosis: GI bleeding - likely small bowel source (see below) Discharge Goals: Diagnostic testing and Therapeutic intervention Activity: Resume your previous activity Non-emergency contact: Primary Care Provider and Water Team Leader Call non-emergency contact if: you have any medication questions Follow-up/Referrals: Son Sargent MD [Primary Care Provider] - Diet: Regular Addtl Provider Instructions: GI bleeding -fortunately the bleeding appears to have overall resolved - you are still showing a small amount of blood, but this seems far more consistent with hemorrhoids than any ongoing bleeding of significance -your blood has been thin on the heparin drip for several days with no bleeding of significance, and this morning your INR is now 2.2 with blood counts actually rising - so it appears we're out of any serious trouble -the actual source of bleeding is likely one of two possibilities: we need to give strong consideration to small bowel bleeding - as we age, we often develop blood vessels too close to the surface (called arteriovenous malformations) that can leak blood - and the small bowel is a fairly common area to form those. under normal circumstances they wouldn't bleed much, but sometimes with blood thinners they can leak enough to be significant. it's also equally possible that the hemorrhoids that were seen on scope (even though they weren't bleeding at the time) were the culprit - hemorrhoids can occasionally bleed seriously, and since their normal pattern is "on again/off again" it's possible this was the source and it has now stopped -to follow through with this, we'll want you to do the following: -close follow up of your blood counts and your INR -- next check at your PCP's office either tomorrow or wednesday, whichever is more convenient -follow up with [facility] gastroenterology for how best to evaluate the small bowel -if you notice a worsening in bleeding / a large amount of blood / anything that concerns you, or if you notice symptoms consistent with anemia (feeling weak, lightheaded, unreasonably tired or fatigued) -- please be evaluated right away Prescriptions: Continued simvastatin 20 mg Tablet 20 mg PO DAILY Qty: 0 RF: 0 cholecalciferol (vitamin D3) 2,000 unit Capsule 2,000 unit PO DAILY Qty: 0 RF: 0 tamsulosin 0.4 mg Capsule 0.4 mg PO DAILY Qty: 0 RF: 0 finasteride 5 mg Tablet 5 mg PO DAILY Qty: 0 RF: 0 metoprolol tartrate 25 mg Tablet 25 mg PO BID Qty: 0 RF: 0 warfarin [Jantoven] 3 mg Tablet 3 mg PO 3XWK Qty: 0 RF: 0 warfarin [Jantoven] 3 mg Tablet 3 mg PO 4XWK Qty: 0 RF: 0 ferrous sulfate 325 mg (65 mg iron) Tablet 325 mg PO DAILY Qty: 0 RF: 0 benazepril-hydrochlorothiazide 20-25 mg tablet 1 tab PO DAILY RF: 0 amlodipine 5 mg tablet 5 mg PO DAILY RF: 0 calcium carbonate [Calcium 500] 500 mg calcium (1,250 mg) Tablet 500 mg PO DAILY RF: 0 levothyroxine 50 mcg tablet 50 mcg PO DAILY RF: 0 Stand-Alone Forms: My [facility] Discharge Orders: Discharge Order (Routine); Ordered 10/10/18 Ordered By: Dany Holcomb Admission Data Admit Date/Time: 10/03/18 15:44 Attending Provider: Dany Holcomb Admit Provider: Sue Ramires Primary Care Provider: Son Sargent Other Providers: Juanito Tran ; Sue Ramires ; Joel Cuevas Service: Medical Other Interventions: Discharge Summary Assessment (RN) Last Done: 10/10/18 13:16 DC Date/Time DO NOT enter until pt leaves facility: 10/10/18 14:15
[2018-10-11] MEDS ORDERED: LR 500ML BOLUS IV SCH (06:00)
[2018-10-11] MEDS ORDERED: FAMOTIDINE 20 MG TAB PO SCH (06:00)
[2018-10-11] MEDS ORDERED: ROPIVACAINE 0.5% HCL/PF 150 MG, BUPIVACAINE 0.5% MPF 30 ML, EPINEPHrine 30MG/30ML (OR U... INSTIL SCH (06:00)
[2018-10-11] MEDS ORDERED: ACETAMINOPHEN 500 MG TAB PO SCH (06:00)
[2018-10-11] MEDS ORDERED: GABAPENTIN 900 MG DOSE PO SCH (06:00)
[2018-10-11] MEDS ORDERED: CEFAZOLIN 2000MG 2,000 MG/15 ML SYR IV SCH (06:00)
[2018-10-11] MEDS ORDERED: TRANEXAMIC ACID 1,000 MG **IV Pre-op IV SCH (06:00)
[2018-10-11] MEDS ORDERED: LR 60ML/HR IV SCH (06:00)
[2018-10-11] MEDS ORDERED: TRANEXAMIC ACID 1,000 MG **IV Intra-op IV SCH (06:30)
== END 2018-10-10 14:15 | disposition home health service (06) | DRG 378 ==
LOC: ED 13:15 → SUATTDRO 15:44 → 2E 15:44 → 2N 10-08 17:27

== ENCOUNTER 2019-01-13 16:50 | Inpatient (IN) ==
[2019-01-13] MEDS ORDERED: SODIUM CHLORIDE 0.9% 250 ML IV PRN ×4 (18:24→22:58)
[2019-01-13 18:35] LABS: iSTAT Creatinine 1.3 mg/dl (0.6-1.3); iSTAT Hemoglobin 7.5 g/dl (14.0-18.0); iSTAT Ionized Calcium 1.17 mmol/l (1.12-1.32)
[2019-01-13 18:49] LABS: Hematocrit (blood only) 21.2 % (42-52); Hemoglobin 6.9 g/dL (14.0-18.0); Mean Corpuscular Hemoglobin 27.3 pg (25-34); Mean Corpuscular Hgb Conc 32.5 g/dL (32-36); Mean Corpuscular Volume 83.8 fL (80-100); Mean Platelet Volume 9.8 fL (7.4-10.4); Platelet Count 161 K/uL (130-400); RDW Standard Deviation 48.5 fL (36.4-46.3); Red Blood Count 2.53 M/uL (4.7-6.1); White Blood Count 4.39 K/uL (4.8-10.8)
[2019-01-13 18:54] LABS: Alanine Aminotransferase 31 U/L (12-78); Albumin Level 3.3 gm/dl (3.4-5.0); Aspartate Aminotransferase 41 U/L (15-37); BUN Creatinine Ratio 19.4 (10-20); Blood Urea Nitrogen 24 mg/dl (7-18); Calcium 8.8 mg/dl (8.5-10.1); Carbon Dioxide 26 mmol/L (21-32); Chloride 94 mmol/L (98-107); Est GFR (African American) 67.4; Est GFR (Non-African American) 58.1; Glucose 99 mg/dl (70-99); Potassium 3.5 mmol/L (3.5-5.1); Sodium 129 mmol/L (136-145)
[2019-01-13 18:56] LABS: INR 3.5 (0.9-1.1); Partial Thromboplastin Ratio 1.5; Partial Thromboplastin Time 40.3 Seconds (21.0-31.0); Prothrombin Time 33.1 Seconds (9.0-12.0)
[2019-01-13 18:57] LABS: Albumin Globulin Ratio 0.8 (0.9-2); Alkaline Phosphatase 66 U/L (45-117); Bilirubin,Total 0.4 mg/dl (0.2-1); Globulin 3.9 gm/dl (2.5-4.0); Total Protein 7.2 gm/dl (6.4-8.2)
[2019-01-13 19:13] LABS: Basophils # (auto) 0.03 K/uL (0-0.2); Basophils % (auto) 0.7 %; Eosinophils # (auto) 0.12 K/uL (0-0.5); Eosinophils % (auto) 2.7 %; Immature Granulocytes # (auto) 0.01 K/uL (0.00-0.02); Immature Granulocytes % (auto) 0.2 %; Lymphocytes # (auto) 0.64 K/uL (1.2-3.4); Lymphocytes % (auto) 14.6 %; Monocytes # (auto) 0.62 K/uL (0.11-0.59); Monocytes % (auto) 14.1 %; Neutrophils # (auto) 2.97 K/uL (1.4-6.5); Neutrophils % (auto) 67.7 %; Polychromasia 1+
[2019-01-13 19:43] LABS: Albumin Level 3.5 gm/dl (3.4-5.0); BUN Creatinine Ratio 21.3 (10-20); Calcium 9.4 mg/dl (8.5-10.1); Creatinine Clr Calc Pharmacy 68.5 ml/min; Potassium 3.5 mmol/L (3.5-5.1)
[2019-01-13 19:46] LABS: Albumin Globulin Ratio 0.9 (0.9-2); Bilirubin,Total 0.4 mg/dl (0.2-1); Globulin 3.8 gm/dl (2.5-4.0); Total Protein 7.3 gm/dl (6.4-8.2)
--- NOTE | 2019-01-13 21:02 | History & Physical Report ---
Date of Service January 13, 2019 Assessment & Plan (1) Acute blood loss anemia: 73-year-old male with a past medical history of atrial fibrillation, mechanical mitral valve, hypothyroidism, hypertension, hyperlipidemia presents with rectal bleeding. Patient was recently admitted 10/10/2018 for GI bleed and found to have internal/external hemorrhoids on colonoscopy. He was scheduled to see rectal surgeon on 01/18/2019. He is being admitted for acute blood loss anemia will be monitored on telemetry. Acute blood loss anemia, likely secondary to bleeding hemorrhoids Lower GI bleedcontinue home meds, defer protonix. Will keep the patient NPO overnight Patient is consented, transfused 2 units, admit to telemetry GI consulted, appreciate recommendations Surgery consulted, appreciate recommendations Mechanical mitral valve, chronic anticoagulation, therapeutic INR 3.5 Patient received warfarin tonight, will recheck INR in the morning, continue warfarin if patient is therapeutic Consider starting heparin drip if the patient is being considered for procedure or becomes subtherapeutic Hyponatremia Continue normal saline 80 cc/h Hypertension/hyperlipidemia Continue amlodipine. Replace benazepril/HCTZ for Lisinopril/HCTZ Continue simvastatin BPH Continue finasteride, tamsulosin Hypothyroidism Continue levothyroxine DVT prophylaxistherapeutic INR on warfarin Sorin.p.o. overnight CODE STATUSfull code (2) Rectal bleeding: (3) Pacemaker: (4) H/O mitral valve replacement with mechanical valve: (5) HLD (hyperlipidemia): (6) HTN (hypertension): (7) Hypokalemia: (8) Hyponatremia: (9) half-way (current) use of anticoagulants: (10) MGUS (monoclonal gammopathy of unknown significance): History of Present Illness Primary Care Provider: Geoffrey Sargent MD 73-year-old male with a past medical history of hyperlipidemia, hypertension, A. fib, mitral valve replacement on warfarin, hypothyroidism presents with rectal bleeding. Patient was recently admitted on 10/10/2018 for similar presentation. At that admission he was seen by GI and was found on colonoscopy to have internal/external hemorrhoids, which were considered likely cause of bleed. He was scheduled with a surgeon to have a hemorrhoidectomy on 01/18/2019. Since this admission, the patient has had intermittent rectal bleeding. Over the past 3 days, the patient has felt weak, fatigued. He denies shortness of breath, he denies chest pain. The patient has been therapeutic on warfarin. Last hemoglobin check on 12/29/2017 showed hemoglobin of 9.3, today was 6.9. Allergies Allergy/AdvReac Type Severity Reaction Status Date / Time adhesive Allergy Unknown RASH Verified 01/13/19 18:29 Home Medications Home Medications Medication Instructions Recorded Confirmed Type cholecalciferol (vitamin D3) 2,000 unit PO DAILY #0 02/19/15 01/13/19 History simvastatin 20 mg PO DAILY #0 02/19/15 01/13/19 History finasteride 5 mg PO DAILY #0 tab 02/26/16 01/13/19 History metoprolol tartrate 25 mg PO BID #0 02/26/16 01/13/19 History tamsulosin 0.4 mg PO DAILY #0 cap 02/26/16 01/13/19 History ferrous sulfate 325 mg PO DAILY #0 05/31/17 01/13/19 History amlodipine 5 mg PO DAILY 10/03/18 01/13/19 History calcium carbonate [Calcium 500] 500 mg PO DAILY 10/03/18 01/13/19 History levothyroxine 50 mcg PO DAILY 10/03/18 01/13/19 History hydrocortisone [Anusol-HC] 1 appln [place] BID PRN #30 gm 10/10/18 01/13/19 Rx benazepril 20 1 tab PO BID tab 12/02/18 01/13/19 History mg-hydrochlorothiazide 25 mg tablet warfarin 3 mg PO 4XWK 01/13/19 01/13/19 History warfarin 4.5 mg PO 3XWK 01/13/19 01/13/19 History Past Med/Surg History Medical History Pacemaker HLD (hyperlipidemia) HTN (hypertension) Hypokalemia Hyponatremia GI bleed (Acute) Anemia (Acute) Dizziness MGUS (monoclonal gammopathy of unknown significance) Surgical History H/O mitral valve replacement with mechanical valve S/P hemorrhoidectomy Family History Other Hypertension Social History Preferred Language: Cantonese Mongolian Communication Ability: tranlator Communication Tools: Other English Language Arts Teacher Required: 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 Beliefs That Will Affect Care: None Current Living Situation: Alone Current Living Situation Comment: lives with Feels Safe at Home: Yes Smoking Status: Never smoker Hx Alcohol Use: No Hx Substance Use: No Review of Systems Constitutional: + fatigue; no fever, no chills and no sweats Eyes: no worsening vision Respiratory: no cough, no chest congestion and no wheezing Cardiovascular: no chest pain, no dyspnea and no edema Gastrointestinal: no abdominal pain, no nausea, no vomiting and no hematemesis Genitourinary: no dysuria, no difficulty urinating and no urinary frequency Integumentary: no rash Neurologic: + generalized weakness; no gait abnormality and no falls Physical Exam Constitutional: WD/WN, vitals as above Eyes: PERRL, conjunctivae normal, anicteric sclerae ENMT: external ear and nose normal, oropharynx normal Neck: trachea midline, no thyromegaly Respiratory: normal respiratory effort, lungs clear to auscultation Cardiovascular: RRR, no murmur, no edema Gastrointestinal (Abdomen): normal bowel sounds, soft, nontender, no hepatosplenomegaly Musculoskeletal: no cyanosis or clubbing, extremities motor strength 5/5 Skin: no rashes, warm and dry Neurologic: PERRL, EOMI, accommodation nl, no face palsy, no dysarthria Psychiatric: A+Ox3, euthymic affect Results & Data Vital Signs (Past 12 Hours) Vital Signs Temp Pulse Resp BP Pulse Ox 01/13/19 20:26 36.9 C 64 16 158/90 H 98 01/13/19 20:00 60 19 132/67 96 01/13/19 19:30 62 18 122/66 97 01/13/19 19:00 62 18 140/71 98 01/13/19 18:48 98 01/13/19 18:31 98 01/13/19 18:30 60 18 137/78 98 01/13/19 18:05 60 16 98 01/13/19 18:02 60 16 137/75 98 01/13/19 17:01 36.7 C 62 20 128/65 99 Code Status & VTE Plan VTE Prophylaxis Plan VTE Prophylaxis will be ordered: Yes Supervising Physician Co-Signing Physician Notes Patient was seen and examined by me personally. I reviewed the chart, the orders and discussed the case in detail with Dr. Johnny Kc MD. I read this H&P and agree with its contents to entirety. PG Care Time/CCT Total # of Minutes Spent Total Time Spent with Patient: Total time spent is greater than 50% in coordination of care (as documented) at patient's floor/unit and/or counseling patient:
[2019-01-13] MEDS ORDERED: SODIUM CHLORIDE 0.9% 1000ML 1,000 ML IV SCH (21:15)
[2019-01-13] MEDS ORDERED: NON-FORMULARY MEDICATION (Benazepril-Hydrochlorothiazide 1 TAB) PO SCH (21:56)
[2019-01-13] MEDS ORDERED: ENALAPRIL MALEATE 10 MG TAB PO ONE (22:15)
[2019-01-13] MEDS ORDERED: hydroCHLOROthiazide 25 MG TAB PO ONE (22:15)
[2019-01-13] MEDS: METOPROLOL TARTRATE 25 MG TAB PO SCH (22:27)
[2019-01-13] MEDS ORDERED: INFLUENZA ADMINISTRATION CHARGE ONE (23:00)
[2019-01-13] MEDS ORDERED: INFLUENZA VACCINE HIGH DOSE 65+ 0.5 ML SYR IM ONE (23:00)
[2019-01-14] MEDS: LEVOTHYROXINE SODIUM 50 MCG TABLET PO SCH (05:33)
[2019-01-14 06:34] LABS: Basophils # (auto) 0.02 K/uL (0-0.2); Basophils % (auto) 0.5 %; Eosinophils # (auto) 0.13 K/uL (0-0.5); Eosinophils % (auto) 3.3 %; Hematocrit (blood only) 25.6 % (42-52); Hemoglobin 8.4 g/dL (14.0-18.0); Immature Granulocytes # (auto) 0.01 K/uL (0.00-0.02); Immature Granulocytes % (auto) 0.3 %; Lymphocytes % (auto) 15.2 %; Mean Corpuscular Hemoglobin 27.4 pg (25-34); Mean Corpuscular Hgb Conc 32.8 g/dL (32-36); Mean Corpuscular Volume 83.4 fL (80-100); Monocytes # (auto) 0.66 K/uL (0.11-0.59); Monocytes % (auto) 16.7 %; Neutrophils # (auto) 2.53 K/uL (1.4-6.5); Platelet Count 150 K/uL (130-400); RDW Coefficient of Variation 15.7 % (11.5-14.5); RDW Standard Deviation 47.1 fL (36.4-46.3); Red Blood Count 3.07 M/uL (4.7-6.1); White Blood Count 3.95 K/uL (4.8-10.8)
[2019-01-14 06:54] LABS: INR 3.5 (0.9-1.1); Prothrombin Time 32.8 Seconds (9.0-12.0)
[2019-01-14 07:09] LABS: BUN Creatinine Ratio 15.7 (10-20); Calcium 9.4 mg/dl (8.5-10.1); Creatinine Clr Calc Pharmacy 61.7 ml/min; Est GFR (African American) 66.7; Est GFR (Non-African American) 57.6; Potassium 3.6 mmol/L (3.5-5.1)
[2019-01-14] MEDS: METOPROLOL TARTRATE 25 MG TAB PO SCH ×2 (08:16→21:14)
[2019-01-14] MEDS: TAMSULOSIN HCL 0.4 MG CAP PO SCH (08:17)
[2019-01-14] MEDS: ENALAPRIL MALEATE 10 MG TAB PO SCH ×2 (08:17→21:15)
[2019-01-14] MEDS: FINASTERIDE 5 MG TAB PO SCH (08:17)
[2019-01-14] MEDS: hydroCHLOROthiazide 25 MG TAB PO SCH ×2 (08:17→17:03)
[2019-01-14] MEDS: AMLODIPINE BESYLATE 5 MG TAB PO SCH (08:17)
[2019-01-14] MEDS: SIMVASTATIN 20 MG TAB PO SCH (08:17)
--- NOTE | 2019-01-14 09:57 | Surgery Consultation ---
Date of Consultation January 14, 2019 Assessment & Plan (1) Rectal bleeding: the exam and pictures from his recent colonoscopy are not impressive, however we have no other explanation. pt cannot have pill endoscpy study per GI b/c of his pacemaker d/w Dr. Oliver. will hold coumadin and start IV heparin after INR drops below 2.5. will plan for rectal exam under anesthesia, hemorrhoidectomy and surgery as needed once coagulopathy corrected....likely /wed next week. 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 was admitted in October with colonoscopy only revealing internal/external hemorrhoids. bleeding recurred this past week. pt with acute on chronic anemia exacerbated by the rectal bleeding. also exacerbated by him being on Coumadin/inr 3.5 for heart valve. history via his son via telephone. Allergies Allergy/AdvReac Type Severity Reaction Status Date / Time adhesive Allergy Unknown RASH Verified 01/13/19 18:29 Home Medications Home Medications Medication Instructions Recorded Confirmed Type cholecalciferol (vitamin D3) 2,000 unit PO DAILY #0 02/19/15 01/13/19 History simvastatin 20 mg PO DAILY #0 02/19/15 01/13/19 History finasteride 5 mg PO DAILY #0 tab 02/26/16 01/13/19 History metoprolol tartrate 25 mg PO BID #0 02/26/16 01/13/19 History tamsulosin 0.4 mg PO DAILY #0 cap 02/26/16 01/13/19 History ferrous sulfate 325 mg PO DAILY #0 05/31/17 01/13/19 History amlodipine 5 mg PO DAILY 10/03/18 01/13/19 History calcium carbonate [Calcium 500] 500 mg PO DAILY 10/03/18 01/13/19 History levothyroxine 50 mcg PO DAILY 10/03/18 01/13/19 History hydrocortisone [Anusol-HC] 1 appln [place] BID PRN #30 gm 10/10/18 01/13/19 Rx benazepril 20 1 tab PO BID tab 12/02/18 01/13/19 History mg-hydrochlorothiazide 25 mg tablet warfarin 3 mg PO 4XWK 01/13/19 01/13/19 History warfarin 4.5 mg PO 3XWK 01/13/19 01/13/19 History Patient History Medical History Pacemaker HLD (hyperlipidemia) HTN (hypertension) Hypokalemia Hyponatremia GI bleed (Acute) Anemia (Acute) Dizziness MGUS (monoclonal gammopathy of unknown significance) Surgical History H/O mitral valve replacement with mechanical valve S/P hemorrhoidectomy Family History Other Hypertension Social History Preferred Language: Cantonese Faroese Communication Ability: tranlator Communication Tools: Other 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 nad.appears comfortable Heent: WNL's abd: soft. nt. nd ext: no c/c/e rectum: external exam reveals anal tags. no active bleeding. no visible fissure. Results & Data Vital Signs (Past 12 Hours) Vital Signs Temp Pulse Pulse Resp BP BP Pulse Ox 01/14/19 09:32 65 01/14/19 07:03 36.7 C 60 18 153/70 H 97 01/14/19 02:56 36.6 C 60 16 131/67 97 01/14/19 02:10 36.8 C 60 16 115/57 L 98 01/14/19 01:10 36.9 C 60 17 117/65 96 01/14/19 00:40 36.6 C 60 17 131/68 98 01/14/19 00:25 36.9 C 62 17 131/66 97 01/14/19 00:05 36.8 C 60 17 126/68 96 01/13/19 23:16 36.6 C 60 17 125/64 97 01/13/19 23:15 36.6 C 60 17 125/64 97 01/13/19 23:00 60 01/13/19 22:30 36.6 C 59 L 18 121/56 L 96 01/13/19 21:58 36.8 C 60 18 159/75 H 96 PG Care Time/CCT Total # of Minutes Spent Total Time Spent with Patient: Total time spent is greater than 50% in coordination of care (as documented) at patient's floor/unit and/or counseling patient:
--- NOTE | 2019-01-14 12:42 | Hospitalist Progress Note ---
Date of Service January 14, 2019 Assessment & Plan (1) Acute blood loss anemia: This patient is a 73-year-old male with a past medical history of permanent atrial fibrillation with PPM, mechanical mitral valve, hypothyroidism, hypertension, hyperlipidemia presents with rectal bleeding. Patient was recently admitted 10/10/2018 for GI bleed and found to have internal/external hemorrhoids on colonoscopy. He was scheduled to see rectal surgeon on 01/18/2019. He is admitted for acute blood loss anemia and GI bleeding Acute blood loss anemia, likely secondary to bleeding hemorrhoids-previous colonoscopy in 10/2018 with nonbleeding internal and external hemorrhoids. EGD also at that time was normal. There is a chance that this could be coming from the small bowel however it is difficult for him to get a VCE given his pacemaker. But given that the bleeding only occurs with bowel movements and is bright red, it seems more likely that it is from the hemorrhoids in the setting of chronic anticoagulation. Hemoglobin improved today to 8.4 after 2 units PRBCs up from hemoglobin on admission of 6.9 Has chronic anemia in the 9-10 range-possibly of chronic blood loss versus of chronic disease, MCV is low normal at 83 -Cannot check iron studies now that has received PRBCs -Would follow iron studies in the future if drops down again -Check CBC again this evening and in the morning, will transfuse to keep hemoglobin between 9-10 GI consulted, appreciate recommendations Surgery consulted, appreciate recommendations-plan to continue to hold Coumadin and allow INR to trend downward with plan for hemorrhoidectomy on Wednesday/Wednesday of next week (2) Rectal bleeding: Likely from hemorrhoids as above -Planning for hemorrhoidectomy (3) H/O mitral valve replacement with mechanical valve: Mechanical mitral valve, chronic anticoagulation, therapeutic INR 3.5 again today Plan to hold Coumadin for hemorrhoidectomy on Wednesday or Wednesday of next week -Follow daily INR -Start heparin drip when INR less than 2.5 -Would plan to hold heparin drip just prior to surgery and restart within 24 hours after surgery -Consider cardiology consultation with his primary grocery carrier, Dr. Mar, if felt necessary in the perioperative period (4) Pacemaker: Ventricularly paced rhythm, placed for symptomatic bradycardia (5) HLD (hyperlipidemia): Continue statin (6) HTN (hypertension): Blood pressures normal to elevated Continue amlodipine. 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: On chronic Coumadin for mechanical mitral valve and atrial fibrillation -Holding Coumadin as above (9) MGUS (monoclonal gammopathy of unknown significance): Noted in the chart, unclear if follows with hematology (10) Permanent atrial fibrillation: Continues on metoprolol for rate control, with pacemaker in place -Holding Coumadin as above (11) BPH (benign prostatic hyperplasia): Stable, no issues with urinary retention at this time Continue finasteride, tamsulosin (12) Hypothyroidism: Continue levothyroxine -Check TSH in the morning (13) DVT prophylaxis: DVT prophylaxistherapeutic INR on warfarin CODE STATUSfull code Disposition-stable for transfer off telemetry to medical/surgical floor Subjective Patient denies any abdominal pain or indigestion. He has had no further bowel movements today and therefore no rectal bleeding. He reports having approximately several tablespoons of bright red blood passed rectally twice a day with bowel movements for the last 3 weeks that was painless. He came in yesterday because he was feeling lightheaded and had decreased exercise tolerance for his usual 1+ mile that he walks. Feeling much improved now status post blood transfusion. Denies chest pain or shortness of breath, denies lightheadedness. Telemetry with atrial fibrillation and paced rhythm with rates in the 60s He is agreeable to hemorrhoidectomy I discussed the case with both GI and general surgery today. Review of Systems Review of Systems: All systems reviewed & are unremarkable except as noted in HPI & below Physical Exam Constitutional: WD/WN, vitals as above Eyes: + anicteric sclerae ENMT: external ear and nose normal, oropharynx normal Neck: trachea midline, no thyromegaly Respiratory: normal respiratory effort, lungs clear to auscultation Cardiovascular: RRR, no murmur, no edema Gastrointestinal (Abdomen): normal bowel sounds, soft, nontender, no hepatosplenomegaly Rectal Exam: + hemorrhoids (A few small hemorrhoids and external skin tags at the anus) Musculoskeletal: Extremities: extremities normal to inspection; no cyanosis and no clubbing Skin: no rashes, warm and dry Neurologic: moves all extremities and awake; no focal motor deficits Psychiatric: A+Ox3, euthymic affect Results & Data Vital Signs (Past 12 Hours) Vital Signs Temp Pulse Pulse Resp BP BP Pulse Ox 01/14/19 12:07 36.9 C 66 22 136/68 97 01/14/19 09:32 65 01/14/19 07:03 36.7 C 60 18 153/70 H 97 01/14/19 02:56 36.6 C 60 16 131/67 97 01/14/19 02:10 36.8 C 60 16 115/57 L 98 01/14/19 01:10 36.9 C 60 17 117/65 96 Laboratory Results 01/14/19 01/14/19 01/14/19 Range/Units 06:22 06:22 06:22 WBC 3.95 L (4.8-10.8) K/uL RBC 3.07 L (4.7-6.1) M/uL Hgb 8.4 L (14.0-18.0) g/dL POC Hgb (14.0-18.0) g/dl Hct 25.6 L (42-52) % POC Hct (42-52) % MCV 83.4 (80-100) fL MCH 27.4 (25-34) pg MCHC 32.8 (32-36) g/dL RDW Std Deviation 47.1 H (36.4-46.3) fL RDW Coeff of Fabio 15.7 H (11.5-14.5) % Plt Count 150 (130-400) K/uL MPV 9.0 (7.4-10.4) fL Immature Gran % (Auto) 0.3 % Neut % (Auto) 64.0 % Lymph % (Auto) 15.2 % Cowley % (Auto) 16.7 % Eos % (Auto) 3.3 % Baso % (Auto) 0.5 % Immature Gran # (Auto) 0.01 (0.00-0.02) K/uL Neut # (Auto) 2.53 (1.4-6.5) K/uL Lymph # (Auto) 0.60 L (1.2-3.4) K/uL Cowley # (Auto) 0.66 H (0.11-0.59) K/uL Eos # (Auto) 0.13 (0-0.5) K/uL Baso # (Auto) 0.02 (0-0.2) K/uL Polychromasia PT 32.8 H (9.0-12.0) Seconds INR 3.5 H (0.9-1.1) APTT (21.0-31.0) Seconds PTT Ratio POC Sodium (135-144) mEq/L Sodium 134 L (136-145) mmol/L POC Potassium (3.3-5.0) mEq/L Potassium 3.6 (3.5-5.1) mmol/L POC Chloride (101-112) mEq/L Chloride 102 (98-107) mmol/L Carbon Dioxide 26 (21-32) mmol/L POC Total CO2 (24-31) mEq/l Anion Gap 6.0 (3-11) POC Anion Gap (16-25) mmol/L POC BUN (7-18) mg/dl BUN 20 H (7-18) mg/dl Creatinine 1.25 (0.6-1.4) mg/dl POC Creatinine (0.6-1.3) mg/dl Est Cr Clr Drug Dosing 61.7 Est GFR ( Amer) 66.7 Est GFR (Non-Af Amer) 57.6 BUN/Creatinine Ratio 15.7 (10-20) Glucose 97 (70-99) mg/dl POC Glucose (other) (70-99) mg/dl Calcium 9.4 (8.5-10.1) mg/dl POC Ioniz Calcium Brady (1.12-1.32) mmol/l Total Bilirubin (0.2-1) mg/dl AST (15-37) U/L ALT (12-78) U/L Alkaline Phosphatase (45-117) U/L Total Protein (6.4-8.2) gm/dl Albumin (3.4-5.0) gm/dl Globulin (2.5-4.0) gm/dl Albumin/Globulin Ratio (0.9-2) POC Stool Occult Blood (Negative) Blood Type Antibody Screen Crossmatch 01/13/19 01/13/19 01/13/19 Range/Units 19:01 19:01 19:01 WBC (4.8-10.8) K/uL RBC (4.7-6.1) M/uL Hgb (14.0-18.0) g/dL POC Hgb (14.0-18.0) g/dl Hct (42-52) % POC Hct (42-52) % MCV (80-100) fL MCH (25-34) pg MCHC (32-36) g/dL RDW Std Deviation (36.4-46.3) fL RDW Coeff of Fabio (11.5-14.5) % Plt Count (130-400) K/uL MPV (7.4-10.4) fL Immature Gran % (Auto) % Neut % (Auto) % Lymph % (Auto) % Cowley % (Auto) % Eos % (Auto) % Baso % (Auto) % Immature Gran # (Auto) (0.00-0.02) K/uL Neut # (Auto) (1.4-6.5) K/uL Lymph # (Auto) (1.2-3.4) K/uL Cowley # (Auto) (0.11-0.59) K/uL Eos # (Auto) (0-0.5) K/uL Baso # (Auto) (0-0.2) K/uL Polychromasia PT 33.1 H (9.0-12.0) Seconds INR 3.5 H (0.9-1.1) APTT 40.3 H (21.0-31.0) Seconds PTT Ratio 1.5 POC Sodium (135-144) mEq/L Sodium 128 L (136-145) mmol/L POC Potassium (3.3-5.0) mEq/L Potassium 3.5 (3.5-5.1) mmol/L POC Chloride (101-112) mEq/L Chloride 95 L (98-107) mmol/L Carbon Dioxide 25 (21-32) mmol/L POC Total CO2 (24-31) mEq/l Anion Gap 8.0 (3-11) POC Anion Gap (16-25) mmol/L POC BUN (7-18) mg/dl BUN 25 H (7-18) mg/dl Creatinine 1.16 (0.6-1.4) mg/dl POC Creatinine (0.6-1.3) mg/dl Est Cr Clr Drug Dosing 68.5 Est GFR ( Amer) 73.0 Est GFR (Non-Af Amer) 63.0 BUN/Creatinine Ratio 21.3 H (10-20) Glucose 106 H (70-99) mg/dl POC Glucose (other) (70-99) mg/dl Calcium 9.4 (8.5-10.1) mg/dl POC Ioniz Calcium Brady (1.12-1.32) mmol/l Total Bilirubin 0.4 (0.2-1) mg/dl AST 46 H (15-37) U/L ALT 31 (12-78) U/L Alkaline Phosphatase 73 (45-117) U/L Total Protein 7.3 (6.4-8.2) gm/dl Albumin 3.5 (3.4-5.0) gm/dl Globulin 3.8 (2.5-4.0) gm/dl Albumin/Globulin Ratio 0.9 (0.9-2) POC Stool Occult Blood (Negative) Blood Type B Positive Antibody Screen NEGATIVE Crossmatch See Detail 01/13/19 01/13/19 01/13/19 Range/Units 18:48 18:19 18:04 WBC (4.8-10.8) K/uL RBC (4.7-6.1) M/uL Hgb (14.0-18.0) g/dL POC Hgb 7.5 L (14.0-18.0) g/dl Hct (42-52) % POC Hct 22 L (42-52) % MCV (80-100) fL MCH (25-34) pg MCHC (32-36) g/dL RDW Std Deviation (36.4-46.3) fL RDW Coeff of Fabio (11.5-14.5) % Plt Count (130-400) K/uL MPV (7.4-10.4) fL Immature Gran % (Auto) % Neut % (Auto) % Lymph % (Auto) % Cowley % (Auto) % Eos % (Auto) % Baso % (Auto) % Immature Gran # (Auto) (0.00-0.02) K/uL Neut # (Auto) (1.4-6.5) K/uL Lymph # (Auto) (1.2-3.4) K/uL Cowley # (Auto) (0.11-0.59) K/uL Eos # (Auto) (0-0.5) K/uL Baso # (Auto) (0-0.2) K/uL Polychromasia PT (9.0-12.0) Seconds INR (0.9-1.1) APTT (21.0-31.0) Seconds PTT Ratio POC Sodium 127 L (135-144) mEq/L Sodium 129 L (136-145) mmol/L POC Potassium 4.0 (3.3-5.0) mEq/L Potassium 3.5 (3.5-5.1) mmol/L POC Chloride 92 L (101-112) mEq/L Chloride 94 L (98-107) mmol/L Carbon Dioxide 26 (21-32) mmol/L POC Total CO2 27 (24-31) mEq/l Anion Gap 9.0 (3-11) POC Anion Gap 13.0 L (16-25) mmol/L POC BUN 31 H (7-18) mg/dl BUN 24 H (7-18) mg/dl Creatinine 1.24 (0.6-1.4) mg/dl POC Creatinine 1.3 (0.6-1.3) mg/dl Est Cr Clr Drug Dosing Not Reportable Est GFR ( Amer) 67.4 Est GFR (Non-Af Amer) 58.1 BUN/Creatinine Ratio 19.4 (10-20) Glucose 99 (70-99) mg/dl POC Glucose (other) 107 H (70-99) mg/dl Calcium 8.8 (8.5-10.1) mg/dl POC Ioniz Calcium Brady 1.17 (1.12-1.32) mmol/l Total Bilirubin 0.4 (0.2-1) mg/dl AST 41 H (15-37) U/L ALT 31 (12-78) U/L Alkaline Phosphatase 66 (45-117) U/L Total Protein 7.2 (6.4-8.2) gm/dl Albumin 3.3 L (3.4-5.0) gm/dl Globulin 3.9 (2.5-4.0) gm/dl Albumin/Globulin Ratio 0.8 L (0.9-2) POC Stool Occult Blood Positive A (Negative) Blood Type Antibody Screen Crossmatch 01/13/19 Range/Units 18:00 WBC 4.39 L (4.8-10.8) K/uL RBC 2.53 L (4.7-6.1) M/uL Hgb 6.9 L* (14.0-18.0) g/dL POC Hgb (14.0-18.0) g/dl Hct 21.2 L (42-52) % POC Hct (42-52) % MCV 83.8 (80-100) fL MCH 27.3 (25-34) pg MCHC 32.5 (32-36) g/dL RDW Std Deviation 48.5 H (36.4-46.3) fL RDW Coeff of Fabio 16.0 H (11.5-14.5) % Plt Count 161 (130-400) K/uL MPV 9.8 (7.4-10.4) fL Immature Gran % (Auto) 0.2 % Neut % (Auto) 67.7 % Lymph % (Auto) 14.6 % Cowley % (Auto) 14.1 % Eos % (Auto) 2.7 % Baso % (Auto) 0.7 % Immature Gran # (Auto) 0.01 (0.00-0.02) K/uL Neut # (Auto) 2.97 (1.4-6.5) K/uL Lymph # (Auto) 0.64 L (1.2-3.4) K/uL Cowley # (Auto) 0.62 H (0.11-0.59) K/uL Eos # (Auto) 0.12 (0-0.5) K/uL Baso # (Auto) 0.03 (0-0.2) K/uL Polychromasia 1+ PT (9.0-12.0) Seconds INR (0.9-1.1) APTT (21.0-31.0) Seconds PTT Ratio POC Sodium (135-144) mEq/L Sodium (136-145) mmol/L POC Potassium (3.3-5.0) mEq/L Potassium (3.5-5.1) mmol/L POC Chloride (101-112) mEq/L Chloride (98-107) mmol/L Carbon Dioxide (21-32) mmol/L POC Total CO2 (24-31) mEq/l Anion Gap (3-11) POC Anion Gap (16-25) mmol/L POC BUN (7-18) mg/dl BUN (7-18) mg/dl Creatinine (0.6-1.4) mg/dl POC Creatinine (0.6-1.3) mg/dl Est Cr Clr Drug Dosing Est GFR ( Amer) Est GFR (Non-Af Amer) BUN/Creatinine Ratio (10-20) Glucose (70-99) mg/dl POC Glucose (other) (70-99) mg/dl Calcium (8.5-10.1) mg/dl POC Ioniz Calcium Brady (1.12-1.32) mmol/l Total Bilirubin (0.2-1) mg/dl AST (15-37) U/L ALT (12-78) U/L Alkaline Phosphatase (45-117) U/L Total Protein (6.4-8.2) gm/dl Albumin (3.4-5.0) gm/dl Globulin (2.5-4.0) gm/dl Albumin/Globulin Ratio (0.9-2) POC Stool Occult Blood (Negative) Blood Type Antibody Screen Crossmatch PG Care Time/CCT Total # of Minutes Spent Total Time Spent with Patient: Total time spent is greater than 50% in coordination of care (as documented) at patient's floor/unit and/or counseling patient:
--- NOTE | 2019-01-14 14:11 | Gastrointestinal Consultation ---
Date of Consultation January 14, 2019 Assessment & Plan (1) Rectal bleeding: (2) Chronic blood loss anemia: He is to undergo a Hemorrhoidectomy later this week when INR has stabilized Will defer further GI workup to Dr. Miller and the [facility] GI team Transfuse PRN to maintain H/H around 10/30 Continue supportive care History of Present Illness Reason for Consultation: Rectal bleeding Attending Physician: Jackie Oliver MD History of Present Illness Yamilex Finney presented to the ER yesterday with Rectal bleeding. His initial Hgb was 6.9 on arrival to the ER, and he was subsequently transfused 2u of PRBC. His followup H/H was 8.4 and 25.6. He was admitted in October for similar findings, and underwent both an EGD and Colonoscopy with Dr. Miller at that time, but there was no definitive source of bleeding found. He is maintained on Coumadin therapy for A-fib, and was unable to have a Video Capsule endoscopy study done as an outpatient secondary to his history of having a pacemaker. He was seen by surgery earlier today, and will undergo hemorrhoidectomy when his INR improves next week. At the time that I saw him, he denied any fevers, chills, nausea, vomiting, diarrhea, melena, hematochezia or hematemesis. He was hungry, and asking for food. He denied any further complaints. Allergies Allergy/AdvReac Type Severity Reaction Status Date / Time adhesive Allergy Unknown RASH Verified 01/13/19 18:29 Home Medications Home Medications Medication Instructions Recorded Confirmed Type cholecalciferol (vitamin D3) 2,000 unit PO DAILY #0 02/19/15 01/13/19 History simvastatin 20 mg PO DAILY #0 02/19/15 01/13/19 History finasteride 5 mg PO DAILY #0 tab 02/26/16 01/13/19 History metoprolol tartrate 25 mg PO BID #0 02/26/16 01/13/19 History tamsulosin 0.4 mg PO DAILY #0 cap 02/26/16 01/13/19 History ferrous sulfate 325 mg PO DAILY #0 05/31/17 01/13/19 History amlodipine 5 mg PO DAILY 10/03/18 01/13/19 History calcium carbonate [Calcium 500] 500 mg PO DAILY 10/03/18 01/13/19 History levothyroxine 50 mcg PO DAILY 10/03/18 01/13/19 History hydrocortisone [Anusol-HC] 1 appln PA BID PRN #30 gm 10/10/18 01/13/19 Rx benazepril 20 1 tab PO BID tab 12/02/18 01/13/19 History mg-hydrochlorothiazide 25 mg tablet warfarin 3 mg PO [id number] 01/13/19 01/13/19 History warfarin 4.5 mg PO [id number] 01/13/19 01/13/19 History Patient History Medical History Pacemaker HLD (hyperlipidemia) HTN (hypertension) Hypokalemia Hyponatremia GI bleed (Acute) Anemia (Acute) Dizziness MGUS (monoclonal gammopathy of unknown significance) Surgical History H/O mitral valve replacement with mechanical valve S/P hemorrhoidectomy Family History Other Hypertension Social History Preferred Language: GuardiCoree Indonesian Communication Ability: Effective Communication Tools: IPad Wireworker Supervisor Required: Yes Beliefs That Will Affect Care: None Current Living Situation: Alone Current Living Situation Comment: lives with Feels Safe at Home: Yes Smoking Status: Never smoker Hx Alcohol Use: No Hx Substance Use: No Review of Systems Review of Systems: All systems reviewed & are unremarkable except as noted in HPI & below Physical Exam Constitutional: WD/WN, vitals as above Eyes: PERRL, conjunctivae normal, anicteric sclerae Respiratory: normal respiratory effort, lungs clear to auscultation Cardiovascular: RRR, no murmur, no edema Gastrointestinal (Abdomen): normal bowel sounds, soft, nontender, no hepatosplenomegaly Skin: no rashes, warm and dry Psychiatric: A+Ox3, euthymic affect Results & Data Vital Signs (Past 12 Hours) Vital Signs Temp Pulse Pulse Resp BP BP Pulse Ox 01/14/19 14:02 36.8 C 66 16 184/72 H 96 01/14/19 12:07 36.9 C 66 22 136/68 97 01/14/19 09:32 65 01/14/19 07:03 36.7 C 60 18 153/70 H 97 01/14/19 02:56 36.6 C 60 16 131/67 97 01/14/19 02:10 36.8 C 60 16 115/57 L 98 PG Care Time/CCT Total # of Minutes Spent Total Time Spent with Patient: Total time spent is greater than 50% in coordination of care (as documented) at patient's floor/unit and/or counseling patient:
[2019-01-14 18:28] LABS: Mean Corpuscular Hgb Conc 32.9 g/dL (32-36); Mean Platelet Volume 10.2 fL (7.4-10.4); Platelet Count 188 K/uL (130-400)
[2019-01-14 19:01] LABS: Hematocrit (blood only) 28.3 % (42-52); Hemoglobin 9.3 g/dL (14.0-18.0); Mean Corpuscular Hemoglobin 28.2 pg (25-34); Mean Corpuscular Volume 85.8 fL (80-100); Nucleated RBC # (auto) 0.18 K/uL (0-0); Nucleated RBC % (auto) 3.1 %; RDW Coefficient of Variation 16.1 % (11.5-14.5); RDW Standard Deviation 49.2 fL (36.4-46.3); White Blood Count 5.76 K/uL (4.8-10.8)
[2019-01-14 19:02] LABS: Platelet Estimate Normal (Normal)
[2019-01-15 05:42] LABS: Basophils # (auto) 0.02 K/uL (0-0.2); Basophils % (auto) 0.5 %; Eosinophils # (auto) 0.19 K/uL (0-0.5); Eosinophils % (auto) 4.8 %; Hematocrit (blood only) 26.6 % (42-52); Hemoglobin 8.4 g/dL (14.0-18.0); Lymphocytes # (auto) 0.76 K/uL (1.2-3.4); Lymphocytes % (auto) 19.3 %; Mean Corpuscular Hemoglobin 27.4 pg (25-34); Mean Corpuscular Hgb Conc 31.6 g/dL (32-36); Mean Corpuscular Volume 86.6 fL (80-100); Mean Platelet Volume 9.8 fL (7.4-10.4); Monocytes # (auto) 0.55 K/uL (0.11-0.59); Neutrophils # (auto) 2.41 K/uL (1.4-6.5); Neutrophils % (auto) 61.4 %; Platelet Count 151 K/uL (130-400); RDW Coefficient of Variation 16.2 % (11.5-14.5); RDW Standard Deviation 50.3 fL (36.4-46.3); Red Blood Count 3.07 M/uL (4.7-6.1); White Blood Count 3.93 K/uL (4.8-10.8)
[2019-01-15 06:02] LABS: Prothrombin Time 33.5 Seconds (9.0-12.0)
[2019-01-15 06:12] LABS: INR 3.6 (0.9-1.1)
[2019-01-15 06:18] LABS: BUN Creatinine Ratio 16.6 (10-20); Calcium 8.8 mg/dl (8.5-10.1); Creatinine Clr Calc Pharmacy 63.2 ml/min; Est GFR (African American) 68.7; Est GFR (Non-African American) 59.3; Magnesium 2.1 mg/dl (1.8-2.4); Potassium 3.8 mmol/L (3.5-5.1)
[2019-01-15] MEDS: LEVOTHYROXINE SODIUM 50 MCG TABLET PO SCH (06:23)
[2019-01-15 06:29] LABS: Thyroid Stimulating Hormone 6.08 uIu/ml (0.300-4.500)
[2019-01-15] MEDS: FINASTERIDE 5 MG TAB PO SCH (08:22)
[2019-01-15] MEDS: METOPROLOL TARTRATE 25 MG TAB PO SCH ×2 (08:23→20:34)
[2019-01-15] MEDS: SIMVASTATIN 20 MG TAB PO SCH (08:23)
[2019-01-15] MEDS: TAMSULOSIN HCL 0.4 MG CAP PO SCH (08:24)
[2019-01-15] MEDS: hydroCHLOROthiazide 25 MG TAB PO SCH ×2 (08:24→17:44)
[2019-01-15] MEDS: ENALAPRIL MALEATE 10 MG TAB PO SCH ×2 (08:24→20:34)
[2019-01-15] MEDS: AMLODIPINE BESYLATE 5 MG TAB PO SCH (08:24)
--- NOTE | 2019-01-15 09:15 | Surgery Progress Note ---
Date of Service January 15, 2019 Assessment & Plan (1) Rectal bleeding: INR 3.6, Hgb 8.4 plan for EUA, hemorrhoidectomy in a few days when INR normalized seen with Dr. Webb agree. likely Wednesday. Subjective still some rectal bleeding Results & Data Vital Signs (Past 12 Hours) Vital Signs Temp Pulse Resp BP Pulse Ox Pulse Ox 01/15/19 07:29 36.6 C 61 17 155/75 H 95 01/14/19 23:52 96 01/14/19 23:45 96 01/14/19 22:59 36.7 C 59 L 16 126/69 96 PG Care Time/CCT Total # of Minutes Spent Total Time Spent with Patient: Total time spent is greater than 50% in coordination of care (as documented) at patient's floor/unit and/or counseling patient:
--- NOTE | 2019-01-15 13:54 | Emergency Department Note ---
Entered by Trice Traylor acting as a scribe for Bryce Houston MD History of Present Illness General Chief complaint: Rectal Bleed Stated complaint: FATIGUE, HEMORRHOID BLEEDING Time Seen by Provider: 01/13/19 18:05 Source: patient and family (son) Limitations: no limitations History of Present Illness Onset (ago): week(s) 2 Location: abdomen Severity: similar to prior episodes Pain Consistency: + other (peristent) Maximum Pain Intensity: 0 Current Pain Intensity: 0 Quality: + other (rectal bleeding) Associated symptoms: + denies other symptoms (abdominal pain), + loss of appetite and + other (fatigue) The patient is a 73 year old male who presents to the Emergency Room with complaints of persistent rectal bleeding for the past two weeks. His son, at bedside, notes that this is similar to his previous episodes of rectal bleeding. The patient's son notes that the patient has an appointment at [facility] next week for the symptoms. The son notes that the symptoms worsened yesterday, stating that patient has been complaining of persistent fatigue since yesterday. He notes that the patient lost his appetite today. The patient denies any abdominal pain. He denies any current pain. The HPI was obtained through the son doing translation. Home Medications Home Medications Medication Instructions Recorded Confirmed Type cholecalciferol (vitamin D3) 2,000 unit PO DAILY #0 02/19/15 01/13/19 History simvastatin 20 mg PO DAILY #0 02/19/15 01/13/19 History finasteride 5 mg PO DAILY #0 tab 02/26/16 01/13/19 History metoprolol tartrate 25 mg PO BID #0 02/26/16 01/13/19 History tamsulosin 0.4 mg PO DAILY #0 cap 02/26/16 01/13/19 History ferrous sulfate 325 mg PO DAILY #0 05/31/17 01/13/19 History amlodipine 5 mg PO DAILY 10/03/18 01/13/19 History calcium carbonate [Calcium 500] 500 mg PO DAILY 10/03/18 01/13/19 History levothyroxine 50 mcg PO DAILY 10/03/18 01/13/19 History hydrocortisone [Anusol-HC] 1 appln IN BID PRN #30 gm 10/10/18 01/13/19 Rx benazepril 20 1 tab PO BID tab 12/02/18 01/13/19 History mg-hydrochlorothiazide 25 mg tablet warfarin 3 mg PO 4XWK 01/13/19 01/13/19 History warfarin 4.5 mg PO 3XWK 01/13/19 01/13/19 History Allergies Allergy/AdvReac Type Severity Reaction Status Date / Time adhesive Allergy Unknown RASH Verified 01/13/19 18:29 Past Med/Surg History Medical History Pacemaker HLD (hyperlipidemia) HTN (hypertension) Hypokalemia Hyponatremia GI bleed (Acute) Anemia (Acute) Dizziness MGUS (monoclonal gammopathy of unknown significance) Surgical History H/O mitral valve replacement with mechanical valve S/P hemorrhoidectomy Family History Other Hypertension Social History Preferred Language: Cantonese Telugu Communication Ability: Effective Communication Tools: IPad Education Teacher Required: Yes Beliefs That Will Affect Care: None Current Living Situation: Alone Current Living Situation Comment: lives with Feels Safe at Home: Yes Smoking Status: Never smoker Hx Alcohol Use: No Hx Substance Use: No Review of Systems See HPI for pertinent positives & negatives. and A total of 10 systems reviewed and were otherwise negative Physical Exam Vital Signs Vital Signs - 24 hr 01/13/19 17:01 01/13/19 18:02 01/13/19 18:05 Temperature 98.1 F Temperature Source Oral Sepsis Recent Fever Within 48 Hours No Sepsis Action Taken by Nursing No Action Required Pulse Rate 62 60 60 Pulse Rate from SpO2 Sensor 60 60 Respiratory Rate 20 16 16 Respiratory Effort / Characteristics Non-Labored Respiratory Depth Normal Blood Pressure 128/65 137/75 Blood Pressure Mean 86 95 Pulse Oximetry 99 98 98 Oxygen Delivery Method Room Air Room Air Room Air 01/13/19 18:30 01/13/19 18:31 01/13/19 18:48 Temperature Temperature Source Sepsis Recent Fever Within 48 Hours Sepsis Action Taken by Nursing Pulse Rate 60 Pulse Rate from SpO2 Sensor 60 Respiratory Rate 18 Respiratory Effort / Characteristics Respiratory Depth Blood Pressure 137/78 Blood Pressure Mean 97 Pulse Oximetry 98 98 98 Oxygen Delivery Method Room Air Room Air Room Air GENERAL: Awake, alert, well-appearing, in no acute distress HENT: Normocephalic, atraumatic. Oropharynx unremarkable. EYES: Normal conjunctiva. Sclera non-icteric. NECK: Supple. No nuchal rigidity. FROM. No JVD. RESPIRATORY: Clear to auscultation. CARDIAC: Regular rate, normal rhythm. Extremities warm and well perfused. Pulses equal. ABDOMEN: Soft, non-distended. No tenderness to palpation. No rebound or guarding. No masses. RECTAL: Comstock stool on exam. Positive for blood. MUSCULOSKELETAL: Chest examination reveals no tenderness. The back is symmetrical on inspection without obvious abnormality. There is no CVA tenderness to palpation. No joint edema. LOWER EXTREMITIES: Calves are equal size bilaterally and non-tender. No edema. No discoloration. NEURO: Normal sensorium. No sensory or motor deficits noted. SKIN: No rash or jaundice noted. Course 1805: The patient was evaluated in room A04. A complete history and physical exam was performed. The son was translating. I offered a manager video games, but the patient and his son refused. The son is the POA. 1914: I spoke with Dr. Recinos, [facility] hospitalist, about the patients case. He will further evaluate the patient. 8: I updated the patient and his son about the plan, and they were in agreement with the plan. Consultations Consultation #1: I spoke with Dr. Recinos, [facility] hospitalist, about the patients case. He will further evaluate the patient. Time: 19:14 Administered Medications Amlodipine Besylate (Norvasc) 5 mg PO DAILY [facility] Stop: 02/13/19 08:59 Last Admin: 01/15/19 08:24 Dose: 5 mg Documented by: [id number] Admin: 01/14/19 08:17 Dose: 5 mg Documented by: [id number] Enalapril Maleate (Vasotec) 20 mg PO BID DONALD Stop: 02/13/19 08:59 Last Admin: 01/15/19 08:24 Dose: 20 mg Documented by: [id number] Admin: 01/14/19 21:15 Dose: 20 mg Documented by: [id number] Admin: 01/14/19 08:17 Dose: 20 mg Documented by: [id number] Finasteride (Proscar) 5 mg PO DAILY [facility] Stop: 02/13/19 08:59 Last Admin: 01/15/19 08:22 Dose: 5 mg Documented by: [id number] Admin: 01/14/19 08:17 Dose: 5 mg Documented by: [id number] Hydrochlorothiazide (Hctz) 25 mg PO BID17 [facility] Stop: 02/13/19 08:59 Last Admin: 01/15/19 08:24 Dose: 25 mg Documented by: [id number] Admin: 01/14/19 17:03 Dose: 25 mg Documented by: [id number] Admin: 01/14/19 08:17 Dose: 25 mg Documented by: [id number] Levothyroxine Sodium (Synthroid) 50 mcg PO DAILYBB [facility] Stop: 02/13/19 06:29 Last Admin: 01/15/19 06:23 Dose: 50 mcg Documented by: [id number] Admin: 01/14/19 05:33 Dose: 50 mcg Documented by: [id number] Metoprolol Tartrate (Lopressor) 25 mg PO BID [facility] Stop: 02/12/19 21:55 Last Admin: 01/15/19 08:23 Dose: 25 mg Documented by: [id number] Admin: 01/14/19 21:14 Dose: Not Given Documented by: [id number] Admin: 01/14/19 08:16 Dose: 25 mg Documented by: [id number] Admin: 01/13/19 22:27 Dose: Not Given Documented by: [id number] Simvastatin (Zocor) 20 mg PO DAILY [facility] Stop: 02/13/19 08:59 Last Admin: 01/15/19 08:23 Dose: 20 mg Documented by: [id number] Admin: 01/14/19 08:17 Dose: 20 mg Documented by: [id number] Tamsulosin HCl (Flomax) 0.4 mg PO DAILY [facility] Stop: 02/13/19 08:59 Last Admin: 01/15/19 08:24 Dose: 0.4 mg Documented by: [id number] Admin: 01/14/19 08:17 Dose: 0.4 mg Documented by: [id number] Discontinued Medications Enalapril Maleate (Vasotec) 20 mg PO ONE ONE Stop: 01/13/19 22:16 Last Admin: 01/13/19 22:28 Dose: Not Given Documented by: [id number] Hydrochlorothiazide (Hctz) 25 mg PO ONE ONE Stop: 01/13/19 22:16 Last Admin: 01/13/19 22:27 Dose: Not Given Documented by: [id number] Sodium Chloride (Nss) 250 mls @ 15 mls/hr IV .[id number] PRN PRN Reason: For Transfusion Stop: 02/12/19 18:23 Last Infusion: 01/13/19 22:02 Dose: 0 mls/hr Documented by: [id number] Admin: 01/13/19 20:29 Dose: 15 mls/hr Documented by: [id number] Sodium Chloride (Nss 1000ml) 1,000 mls @ 80 mls/hr IV .[id number] DONALD Stop: 01/14/19 09:44 Last Infusion: 01/14/19 14:00 Dose: 0 mls/hr Documented by: [id number] Admin: 01/14/19 03:13 Dose: 80 mls/hr Documented by: [id number] Influenza Virus Vaccine (Fluzone High-Dose Pf) 0.5 ml IM .ONCE ONE Stop: 01/13/19 23:01 Last Admin: 01/15/19 11:20 Dose: 0.5 ml Documented by: [id number] Medical Decision Making Differential Diagnosis Differential: Diverticulitis, AVM, Coagulopathy, Colitis, Malignancy, Upper GI bleed, Fissure, Hemorrhoids, amongst other pathologies entertained. Medical Records Attestation: I reviewed the patient's medical records. Home Medications Current Medication List: was personally reviewed by me Laboratory Data Attestation: I reviewed the patient's lab results. Result diagrams: 01/15/19 05:03 01/15/19 05:03 Lab Results 01/13/19 01/13/19 01/13/19 Range/Units 18:00 18:04 18:19 WBC 4.39 L (4.8-10.8) K/uL RBC 2.53 L (4.7-6.1) M/uL Hgb 6.9 L* (14.0-18.0) g/dL POC Hgb 7.5 L (14.0-18.0) g/dl Hct 21.2 L (42-52) % POC Hct 22 L (42-52) % MCV 83.8 (80-100) fL MCH 27.3 (25-34) pg MCHC 32.5 (32-36) g/dL RDW Std Deviation 48.5 H (36.4-46.3) fL RDW Coeff of Fabio 16.0 H (11.5-14.5) % Plt Count 161 (130-400) K/uL MPV 9.8 (7.4-10.4) fL Immature Gran % (Auto) 0.2 % Neut % (Auto) 67.7 % Lymph % (Auto) 14.6 % Bell % (Auto) 14.1 % Eos % (Auto) 2.7 % Baso % (Auto) 0.7 % Immature Gran # (Auto) 0.01 (0.00-0.02) K/uL Neut # (Auto) 2.97 (1.4-6.5) K/uL Lymph # (Auto) 0.64 L (1.2-3.4) K/uL Bell # (Auto) 0.62 H (0.11-0.59) K/uL Eos # (Auto) 0.12 (0-0.5) K/uL Baso # (Auto) 0.03 (0-0.2) K/uL Polychromasia 1+ PT (9.0-12.0) Seconds INR (0.9-1.1) APTT (21.0-31.0) Seconds PTT Ratio POC Sodium 127 L (135-144) mEq/L Sodium 129 L (136-145) mmol/L POC Potassium 4.0 (3.3-5.0) mEq/L Potassium 3.5 (3.5-5.1) mmol/L POC Chloride 92 L (101-112) mEq/L Chloride 94 L (98-107) mmol/L Carbon Dioxide 26 (21-32) mmol/L POC Total CO2 27 (24-31) mEq/l Anion Gap 9.0 (3-11) POC Anion Gap 13.0 L (16-25) mmol/L POC BUN 31 H (7-18) mg/dl BUN 24 H (7-18) mg/dl Creatinine 1.24 (0.6-1.4) mg/dl POC Creatinine 1.3 (0.6-1.3) mg/dl Est Cr Clr Drug Dosing Not Reportable Est GFR ( Amer) 67.4 Est GFR (Non-Af Amer) 58.1 BUN/Creatinine Ratio 19.4 (10-20) Glucose 99 (70-99) mg/dl POC Glucose (other) 107 H (70-99) mg/dl Calcium 8.8 (8.5-10.1) mg/dl POC Ioniz Calcium Brady 1.17 (1.12-1.32) mmol/l Total Bilirubin 0.4 (0.2-1) mg/dl AST 41 H (15-37) U/L ALT 31 (12-78) U/L Alkaline Phosphatase 66 (45-117) U/L Total Protein 7.2 (6.4-8.2) gm/dl Albumin 3.3 L (3.4-5.0) gm/dl Globulin 3.9 (2.5-4.0) gm/dl Albumin/Globulin Ratio 0.8 L (0.9-2) POC Stool Occult Blood (Negative) Blood Type Antibody Screen Crossmatch 01/13/19 01/13/19 01/13/19 Range/Units 18:48 19:01 19:01 WBC (4.8-10.8) K/uL RBC (4.7-6.1) M/uL Hgb (14.0-18.0) g/dL POC Hgb (14.0-18.0) g/dl Hct (42-52) % POC Hct (42-52) % MCV (80-100) fL MCH (25-34) pg MCHC (32-36) g/dL RDW Std Deviation (36.4-46.3) fL RDW Coeff of Fabio (11.5-14.5) % Plt Count (130-400) K/uL MPV (7.4-10.4) fL Immature Gran % (Auto) % Neut % (Auto) % Lymph % (Auto) % Bell % (Auto) % Eos % (Auto) % Baso % (Auto) % Immature Gran # (Auto) (0.00-0.02) K/uL Neut # (Auto) (1.4-6.5) K/uL Lymph # (Auto) (1.2-3.4) K/uL Bell # (Auto) (0.11-0.59) K/uL Eos # (Auto) (0-0.5) K/uL Baso # (Auto) (0-0.2) K/uL Polychromasia PT 33.1 H (9.0-12.0) Seconds INR 3.5 H (0.9-1.1) APTT 40.3 H (21.0-31.0) Seconds PTT Ratio 1.5 POC Sodium (135-144) mEq/L Sodium (136-145) mmol/L POC Potassium (3.3-5.0) mEq/L Potassium (3.5-5.1) mmol/L POC Chloride (101-112) mEq/L Chloride (98-107) mmol/L Carbon Dioxide (21-32) mmol/L POC Total CO2 (24-31) mEq/l Anion Gap (3-11) POC Anion Gap (16-25) mmol/L POC BUN (7-18) mg/dl BUN (7-18) mg/dl Creatinine (0.6-1.4) mg/dl POC Creatinine (0.6-1.3) mg/dl Est Cr Clr Drug Dosing Est GFR ( Amer) Est GFR (Non-Af Amer) BUN/Creatinine Ratio (10-20) Glucose (70-99) mg/dl POC Glucose (other) (70-99) mg/dl Calcium (8.5-10.1) mg/dl POC Ioniz Calcium Brady (1.12-1.32) mmol/l Total Bilirubin (0.2-1) mg/dl AST (15-37) U/L ALT (12-78) U/L Alkaline Phosphatase (45-117) U/L Total Protein (6.4-8.2) gm/dl Albumin (3.4-5.0) gm/dl Globulin (2.5-4.0) gm/dl Albumin/Globulin Ratio (0.9-2) POC Stool Occult Blood Positive A (Negative) Blood Type B Positive Antibody Screen NEGATIVE Crossmatch See Detail 01/13/19 Range/Units 19:01 WBC (4.8-10.8) K/uL RBC (4.7-6.1) M/uL Hgb (14.0-18.0) g/dL POC Hgb (14.0-18.0) g/dl Hct (42-52) % POC Hct (42-52) % MCV (80-100) fL MCH (25-34) pg MCHC (32-36) g/dL RDW Std Deviation (36.4-46.3) fL RDW Coeff of Fabio (11.5-14.5) % Plt Count (130-400) K/uL MPV (7.4-10.4) fL Immature Gran % (Auto) % Neut % (Auto) % Lymph % (Auto) % Bell % (Auto) % Eos % (Auto) % Baso % (Auto) % Immature Gran # (Auto) (0.00-0.02) K/uL Neut # (Auto) (1.4-6.5) K/uL Lymph # (Auto) (1.2-3.4) K/uL Bell # (Auto) (0.11-0.59) K/uL Eos # (Auto) (0-0.5) K/uL Baso # (Auto) (0-0.2) K/uL Polychromasia PT (9.0-12.0) Seconds INR (0.9-1.1) APTT (21.0-31.0) Seconds PTT Ratio POC Sodium (135-144) mEq/L Sodium 128 L (136-145) mmol/L POC Potassium (3.3-5.0) mEq/L Potassium 3.5 (3.5-5.1) mmol/L POC Chloride (101-112) mEq/L Chloride 95 L (98-107) mmol/L Carbon Dioxide 25 (21-32) mmol/L POC Total CO2 (24-31) mEq/l Anion Gap 8.0 (3-11) POC Anion Gap (16-25) mmol/L POC BUN (7-18) mg/dl BUN 25 H (7-18) mg/dl Creatinine 1.16 (0.6-1.4) mg/dl POC Creatinine (0.6-1.3) mg/dl Est Cr Clr Drug Dosing 68.5 Est GFR ( Amer) 73.0 Est GFR (Non-Af Amer) 63.0 BUN/Creatinine Ratio 21.3 H (10-20) Glucose 106 H (70-99) mg/dl POC Glucose (other) (70-99) mg/dl Calcium 9.4 (8.5-10.1) mg/dl POC Ioniz Calcium Brady (1.12-1.32) mmol/l Total Bilirubin 0.4 (0.2-1) mg/dl AST 46 H (15-37) U/L ALT 31 (12-78) U/L Alkaline Phosphatase 73 (45-117) U/L Total Protein 7.3 (6.4-8.2) gm/dl Albumin 3.5 (3.4-5.0) gm/dl Globulin 3.8 (2.5-4.0) gm/dl Albumin/Globulin Ratio 0.9 (0.9-2) POC Stool Occult Blood (Negative) Blood Type Antibody Screen Crossmatch ECG Data Attestation: I personally reviewed and interpreted this ECG as follows: Indication: other (rectal bleeding) Rate (beats per minute): 60 Rhythm: other (ventricular paced) Findings: + other (QT is 504, normal axis); no ST depression and no ST elevation Blood Pressure Blood Pressure Findings: Elevated blood pressure Blood Pressure Disposition: further management by hospitalist MDM Narrative This is a 73-year-old male who presents emergency department complaining of rectal bleed. Patient is also complaining of feeling weak and dizzy. His hemoglobin was found to be 7.1. The patient's son who is his power of title attorney did consent and signed for a blood transfusion. I did discuss the case with the hospitalist service who agreed to admit the patient. Patient family were in agreement with the treatment plan. Impression & Plan GI bleed, Acute blood loss anemia, H/O mitral valve replacement with mechanical valve, FCI (current) use of anticoagulants Critical Care Time Prolonged Care Time I have personally spent greater than 30 minutes of critical care time in the direct management of this patient. This includes bedside care, interpretation of diagnostic studies, and testing, discussion with consultants, patient, and family members, and other required patient management activities. This 30 minutes is in excess of all separately billable procedures. 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 I confirm that the note above accurately reflects all work, treatment, procedures, and medical decision making performed by me.
--- NOTE | 2019-01-15 17:26 | Hospitalist Progress Note ---
Date of Service January 15, 2019 Assessment & Plan (1) Acute blood loss anemia: This patient is a 73-year-old male with a past medical history of permanent atrial fibrillation with PPM, mechanical mitral valve, hypothyroidism, hypertension, hyperlipidemia presents with rectal bleeding. Patient was recently admitted 10/10/2018 for GI bleed and found to have internal/external hemorrhoids on colonoscopy. He was scheduled to see rectal surgeon on 01/18/2019. He is admitted for acute blood loss anemia and GI bleeding Acute blood loss anemia, likely secondary to bleeding hemorrhoids-previous colonoscopy in 10/2018 with nonbleeding internal and external hemorrhoids. EGD also at that time was normal. There is a chance that this could be coming from the small bowel however it is difficult for him to get a VCE given his pacemaker. But given that the bleeding only occurs with bowel movements and is bright red, it seems more likely that it is from the hemorrhoids in the setting of chronic anticoagulation. Hemoglobin improved to 8.4 after 2 units PRBCs up from hemoglobin on admission of 6.9 Has chronic anemia in the 9-10 range-possibly of chronic blood loss versus of chronic disease, MCV is low normal at 83 -Cannot check iron studies now that has received PRBCs -Would follow iron studies in the future if drops down again -follow CBC_will transfuse to keep hemoglobin between 9-10 GI consulted, appreciate recommendations Surgery consulted, appreciate recommendations-plan to continue to hold Coumadin and allow INR to trend downward with plan for hemorrhoidectomy on Wednesday/Wednesday of next week (2) Rectal bleeding: Likely from hemorrhoids as above -Planning for hemorrhoidectomy (3) H/O mitral valve replacement with mechanical valve: Mechanical mitral valve, chronic anticoagulation, therapeutic INR 3.6 again today Plan to hold Coumadin for hemorrhoidectomy on Wednesday or Wednesday of next week -Follow daily INR -Start heparin drip when INR less than 2.5 -Would plan to hold heparin drip just prior to surgery and restart within 24 hours after surgery -Consider cardiology consultation with his primary video editor, Dr. Mar, if felt necessary in the perioperative period (4) Pacemaker: Ventricularly paced rhythm, placed for symptomatic bradycardia (5) HLD (hyperlipidemia): Continue statin (6) HTN (hypertension): Blood pressures normal to elevated Continue amlodipine. -Continue enalapril and HCTZ -Continue metoprolol (7) Hyponatremia: Sodium low at 127 on admission, now improved with transfusion and normal saline IV fluids -DC IV fluids -Follow BMP -If returns, consider discontinuing HCTZ (8) USP (current) use of anticoagulants: On chronic Coumadin for mechanical mitral valve and atrial fibrillation -Holding Coumadin as above (9) MGUS (monoclonal gammopathy of unknown significance): Noted in the chart, unclear if follows with hematology (10) Permanent atrial fibrillation: Continues on metoprolol for rate control, with pacemaker in place -Holding Coumadin as above -may need to give Vit K if INR not reversed for surgery (11) BPH (benign prostatic hyperplasia): Stable, no issues with urinary retention at this time Continue finasteride, tamsulosin (12) Hypothyroidism: Continue levothyroxine -TSH mildly elevated at 6 here -recommend repeat TSH in 4-6 weeks (13) DVT prophylaxis: DVT prophylaxistherapeutic INR on warfarin CODE STATUSfull code Disposition-continued stay on medical/surgical floor Subjective Still having rectal bleeding without stool-feels urge to go and then only BRBPR coming out. No pain. No abd pain, no chest pain or OSB Not lightheaded Review of Systems Review of Systems: All systems reviewed & are unremarkable except as noted in HPI & below Physical Exam Constitutional: WD/WN, vitals as above Eyes: + anicteric sclerae ENMT: external ear and nose normal, oropharynx normal Neck: trachea midline, no thyromegaly Respiratory: normal respiratory effort, lungs clear to auscultation Cardiovascular: RRR, no murmur, no edema Gastrointestinal (Abdomen): normal bowel sounds, soft, nontender, no hepatosplenomegaly Musculoskeletal: Extremities: extremities normal to inspection; no cyanosis and no clubbing Skin: no rashes, warm and dry Neurologic: moves all extremities and awake; no focal motor deficits Psychiatric: A+Ox3, euthymic affect Results & Data Vital Signs (Past 12 Hours) Vital Signs Temp Pulse Resp BP Pulse Ox 01/15/19 15:10 36.7 C 61 18 154/70 H 95 01/15/19 07:29 36.6 C 61 17 155/75 H 95 Laboratory Results labs reviewed, hgb stable PG Care Time/CCT Total # of Minutes Spent Total Time Spent with Patient: Total time spent is greater than 50% in coordination of care (as documented) at patient's floor/unit and/or counseling patient:
[2019-01-16 05:55] LABS: Basophils # (auto) 0.02 K/uL (0-0.2); Basophils % (auto) 0.4 %; Eosinophils # (auto) 0.25 K/uL (0-0.5); Eosinophils % (auto) 5.1 %; Hematocrit (blood only) 26.5 % (42-52); Hemoglobin 8.4 g/dL (14.0-18.0); Immature Granulocytes # (auto) 0.01 K/uL (0.00-0.02); Immature Granulocytes % (auto) 0.2 %; Lymphocytes # (auto) 0.76 K/uL (1.2-3.4); Lymphocytes % (auto) 15.4 %; Mean Corpuscular Hemoglobin 27.2 pg (25-34); Mean Corpuscular Hgb Conc 31.7 g/dL (32-36); Mean Corpuscular Volume 85.8 fL (80-100); Mean Platelet Volume 9.8 fL (7.4-10.4); Monocytes # (auto) 0.82 K/uL (0.11-0.59); Monocytes % (auto) 16.7 %; Neutrophils # (auto) 3.06 K/uL (1.4-6.5); Neutrophils % (auto) 62.2 %; Platelet Count 171 K/uL (130-400); RDW Coefficient of Variation 16.2 % (11.5-14.5); RDW Standard Deviation 50.8 fL (36.4-46.3); Red Blood Count 3.09 M/uL (4.7-6.1); White Blood Count 4.92 K/uL (4.8-10.8)
[2019-01-16] MEDS: LEVOTHYROXINE SODIUM 50 MCG TABLET PO SCH (06:03)
[2019-01-16 06:10] LABS: INR 2.1 (0.9-1.1); Prothrombin Time 20.1 Seconds (9.0-12.0)
[2019-01-16 06:32] LABS: BUN Creatinine Ratio 14.8 (10-20); Calcium 8.7 mg/dl (8.5-10.1); Creatinine Clr Calc Pharmacy 59.3 ml/min; Est GFR (African American) 63.6; Est GFR (Non-African American) 54.9; Potassium 3.9 mmol/L (3.5-5.1)
[2019-01-16] MEDS ORDERED: Heparin IV Standard *NO* Bolus IV STA (07:38)
[2019-01-16 08:37] LABS: Basophils # (auto) 0.02 K/uL (0-0.2); Basophils % (auto) 0.4 %; Eosinophils # (auto) 0.23 K/uL (0-0.5); Eosinophils % (auto) 5.1 %; Hematocrit (blood only) 29.2 % (42-52); Hemoglobin 9.2 g/dL (14.0-18.0); Immature Granulocytes # (auto) 0.01 K/uL (0.00-0.02); Immature Granulocytes % (auto) 0.2 %; Lymphocytes % (auto) 13.2 %; Mean Corpuscular Hemoglobin 27.4 pg (25-34); Mean Corpuscular Volume 86.9 fL (80-100); Mean Platelet Volume 9.2 fL (7.4-10.4); Monocytes # (auto) 0.61 K/uL (0.11-0.59); Monocytes % (auto) 13.4 %; Neutrophils # (auto) 3.08 K/uL (1.4-6.5); Neutrophils % (auto) 67.7 %; Platelet Count 178 K/uL (130-400); RDW Coefficient of Variation 16.2 % (11.5-14.5); Red Blood Count 3.36 M/uL (4.7-6.1); White Blood Count 4.55 K/uL (4.8-10.8)
[2019-01-16 08:38] LABS: Mean Corpuscular Hgb Conc 31.5 g/dL (32-36)
[2019-01-16] MEDS: METOPROLOL TARTRATE 25 MG TAB PO SCH ×2 (08:41→20:26)
[2019-01-16] MEDS: SIMVASTATIN 20 MG TAB PO SCH (08:41)
[2019-01-16] MEDS: hydroCHLOROthiazide 25 MG TAB PO SCH ×2 (08:41→17:54)
[2019-01-16] MEDS: FINASTERIDE 5 MG TAB PO SCH (08:41)
[2019-01-16] MEDS: AMLODIPINE BESYLATE 5 MG TAB PO SCH (08:41)
[2019-01-16] MEDS: ENALAPRIL MALEATE 10 MG TAB PO SCH ×2 (08:41→20:26)
[2019-01-16] MEDS: TAMSULOSIN HCL 0.4 MG CAP PO SCH (08:42)
[2019-01-16 08:59] LABS: INR 1.9 (0.9-1.1); Partial Thromboplastin Ratio 1.3; Partial Thromboplastin Time 34.4 Seconds (21.0-31.0); Prothrombin Time 18.5 Seconds (9.0-12.0)
[2019-01-16] MEDS: HEPARIN SODIUM/DEXTROSE 25,000 UNITS/500 ML BAG IV SCH (09:22)
--- NOTE | 2019-01-16 16:29 | Hospitalist Progress Note ---
Date of Service January 16, 2019 Assessment & Plan (1) Acute blood loss anemia: Patient was recently admitted on 10/10/2018 for GI bleed and found to have internal/external hemorrhoids on colonoscopy. He was scheduled to see rectal surgeon on 01/18/2019. - Plan for surgery on Wednesday for hemorrhoidectomy - Continues to have mild bleeding with BMs. - Hemoglobin improved to 8.4 after 2 units PRBCs up from hemoglobin on admission of 6.9. Baseline hemoglobin is 9-10 range - possibly of chronic blood loss versus of chronic disease. (2) Rectal bleeding: Likely from hemorrhoids as above. - Planning for hemorrhoidectomy (3) H/O mitral valve replacement with mechanical valve: Mechanical mitral valve, chronic anticoagulation. - INR down to 1.9 on 01/16. - Started heparin gtt the morning of 01/16. (4) Pacemaker: Ventricularly paced rhythm, placed for symptomatic bradycardia (5) HTN (hypertension): Blood pressures normal to elevated. Continue amlodipine, enalapril, HCTZ, and metoprolol - Stable today at 140/70. (6) HLD (hyperlipidemia): Continue statin (7) Hyponatremia: Sodium low at 127 on admission, now improved with transfusion and normal saline IV fluids. - Follow BMP - If returns, consider discontinuing HCTZ (8) MGUS (monoclonal gammopathy of unknown significance): Noted in the chart, unclear if follows with hematology. - No inpatient needs (9) Permanent atrial fibrillation: Continues on metoprolol for rate control, with pacemaker in place. - Holding warfarin as above (10) BPH (benign prostatic hyperplasia): Stable, no issues with urinary retention at this time. Continue finasteride, tamsulosin (11) Hypothyroidism: TSH mildly elevated at 6 this admission, but no symptoms of hypothryoidism. Continue levothyroxine - Recommend repeat TSH in 4-6 weeks (12) DVT prophylaxis: On heparin gtt as above Subjective Reports continued bright red blood per rectum. No abdominal pain. No other pain. No lightheadedness or dizziness. Otherwise feels fine. Physical Exam Constitutional: WD/WN, vitals as above Eyes: EOM intact bilaterally; no conjunctival abnormality ENMT: external ear and nose normal, oropharynx normal Neck: trachea midline, no thyromegaly normal visual inspection Respiratory: normal respiratory effort, lungs clear to auscultation no respiratory distress Cardiovascular: RRR, no murmur, no edema Gastrointestinal (Abdomen): Inspection/Auscultation: abdomen normal to inspection; abdomen not distended Musculoskeletal: no cyanosis or clubbing, extremities motor strength 5/5 Skin: no rashes, warm and dry Neurologic: moves all extremities and awake Psychiatric: Orientation: alert, oriented to person and cooperative Results & Data Vital Signs (Past 12 Hours) Vital Signs Temp Pulse Resp BP BP Pulse Ox 01/16/19 15:02 36.6 C 60 16 138/72 98 01/16/19 07:19 36.5 C 63 18 154/77 H 97 PG Care Time/CCT Total # of Minutes Spent Total Time Spent with Patient: Total time spent is greater than 50% in coordination of care (as documented) at patient's floor/unit and/or counseling patient:
[2019-01-16 17:39] LABS: Partial Thromboplastin Ratio 3.2
[2019-01-16 17:49] LABS: Partial Thromboplastin Time 86.5 Seconds (21.0-31.0)
[2019-01-17] MEDS: HEPARIN SODIUM/DEXTROSE 25,000 UNITS/500 ML BAG IV SCH (01:00)
[2019-01-17 01:31] LABS: Partial Thromboplastin Ratio 3.2
[2019-01-17 01:34] LABS: Partial Thromboplastin Time 87.9 Seconds (21.0-31.0)
[2019-01-17] MEDS: LEVOTHYROXINE SODIUM 50 MCG TABLET PO SCH (06:30)
[2019-01-17 08:44] LABS: Hemoglobin 9.3 g/dL (14.0-18.0); Mean Corpuscular Hemoglobin 26.7 pg (25-34); Mean Corpuscular Volume 86.2 fL (80-100); Mean Platelet Volume 9.3 fL (7.4-10.4); Platelet Count 176 K/uL (130-400); RDW Coefficient of Variation 16.1 % (11.5-14.5); RDW Standard Deviation 49.9 fL (36.4-46.3); Red Blood Count 3.48 M/uL (4.7-6.1); White Blood Count 4.13 K/uL (4.8-10.8)
[2019-01-17] MEDS: SIMVASTATIN 20 MG TAB PO SCH (08:46)
[2019-01-17] MEDS: TAMSULOSIN HCL 0.4 MG CAP PO SCH (08:46)
[2019-01-17] MEDS: ENALAPRIL MALEATE 10 MG TAB PO SCH ×2 (08:46→20:35)
[2019-01-17] MEDS: hydroCHLOROthiazide 25 MG TAB PO SCH ×2 (08:46→18:01)
[2019-01-17] MEDS: FINASTERIDE 5 MG TAB PO SCH (08:46)
[2019-01-17] MEDS: METOPROLOL TARTRATE 25 MG TAB PO SCH ×2 (08:46→20:35)
[2019-01-17] MEDS: AMLODIPINE BESYLATE 5 MG TAB PO SCH (08:46)
[2019-01-17 09:07] LABS: Partial Thromboplastin Ratio 2.7
[2019-01-17 09:10] LABS: BUN Creatinine Ratio 16.8 (10-20); Calcium 9.3 mg/dl (8.5-10.1); Creatinine Clr Calc Pharmacy 59.8 ml/min; Est GFR (African American) 64.2; Est GFR (Non-African American) 55.4; Magnesium 2.2 mg/dl (1.8-2.4); Phosphorus 3.6 mg/dl (2.5-4.9)
[2019-01-17 09:32] LABS: Partial Thromboplastin Time 73.6 Seconds (21.0-31.0)
--- NOTE | 2019-01-17 10:55 | Surgery Progress Note ---
Date of Service January 17, 2019 Assessment & Plan (1) Rectal bleeding: last INR 1.9, repeat in AM H&H stable plan for OR tomorrow as above. still having BRRB H/H stable plan EUA/hemorrhoidectomy tomorrow. previously d/w son including options/risks. agreeable to plan. Subjective still has some rectal bleeding Results & Data Vital Signs (Past 12 Hours) Vital Signs Temp Pulse Resp BP Pulse Ox Pulse Ox 01/17/19 07:10 36.5 C 60 16 126/77 97 01/17/19 00:05 96 01/16/19 22:57 36.6 C 62 16 132/80 96 PG Care Time/CCT Total # of Minutes Spent Total Time Spent with Patient: Total time spent is greater than 50% in coordi nation of care (as documented) at patient's floor/unit and/or counseling patient:
--- NOTE | 2019-01-17 14:40 | Hospitalist Progress Note ---
Date of Service January 17, 2019 Assessment & Plan (1) Acute blood loss anemia: Patient was recently admitted on 10/10/2018 for GI bleed and found to have internal/external hemorrhoids on colonoscopy. He was scheduled to see rectal surgeon on 01/18/2019. - Continues to have mild bleeding with BMs. - Hemoglobin improved to 8.4 after 2 units PRBCs up from hemoglobin on admission of 6.9. Baseline hemoglobin is 9-10 range - possibly of chronic blood loss versus of chronic disease. - Plan for surgery on Wednesday for hemorrhoidectomy - Will hold heparin at midnight. Discussed with surgery PA who will let me know about when we can restart it. (2) Rectal bleeding: Likely from hemorrhoids as above. - Planning for hemorrhoidectomy (3) H/O mitral valve replacement with mechanical valve: Mechanical mitral valve, chronic anticoagulation. - INR down to 1.9 on 01/16. - Started heparin gtt the morning of 01/16; hold at midnight tonight. (4) Pacemaker: Ventricularly paced rhythm, placed for symptomatic bradycardia. - Stable today. (5) HTN (hypertension): Blood pressures normal to elevated. Continue amlodipine, enalapril, HCTZ, and metoprolol - Stable today at 125/70. (6) HLD (hyperlipidemia): Continue statin (7) Hyponatremia: Sodium low at 127 on admission, now improved with transfusion and normal saline IV fluids. - Follow BMP - If returns, consider discontinuing HCTZ (8) MGUS (monoclonal gammopathy of unknown significance): Noted in the chart, unclear if follows with hematology. - No inpatient needs (9) Permanent atrial fibrillation: Continues on metoprolol for rate control, with pacemaker in place. - Holding warfarin as above (10) BPH (benign prostatic hyperplasia): Stable, no issues with urinary retention at this time. Notes he is urinating lots, but also drinking lots of water. Continue finasteride, tamsulosin (11) Hypothyroidism: TSH mildly elevated at 6 this admission, but no symptoms of hypothyroidism. Continue levothyroxine - Recommend repeat TSH in 4-6 weeks (12) DVT prophylaxis: On heparin gtt as above Subjective Reports continued bleeding with bowel movements and feels it may be getting slightly worse. Otherwise no complaints. Physical Exam Constitutional: WD/WN, vitals as above Eyes: EOM intact bilaterally; no conjunctival abnormality ENMT: external ear and nose normal, oropharynx normal Neck: trachea midline, no thyromegaly normal visual inspection Respiratory: normal respiratory effort, lungs clear to auscultation no respiratory distress Cardiovascular: RRR, no murmur, no edema Gastrointestinal (Abdomen): Inspection/Auscultation: abdomen normal to inspection; abdomen not distended Musculoskeletal: no cyanosis or clubbing, extremities motor strength 5/5 Skin: no rashes, warm and dry Neurologic: moves all extremities and awake Psychiatric: Orientation: alert, oriented to person and cooperative Results & Data Vital Signs (Past 12 Hours) Vital Signs Temp Pulse Resp BP Pulse Ox 01/17/19 07:10 36.5 C 60 16 126/77 97 PG Care Time/CCT Total # of Minutes Spent Total Time Spent with Patient: Total time spent is greater than 50% in coordination of care (as documented) at patient's floor/unit and/or counseling patient:
[2019-01-17 16:16] LABS: INR 1.3 (0.9-1.1); Partial Thromboplastin Ratio 2.1; Prothrombin Time 12.8 Seconds (9.0-12.0)
[2019-01-17 16:18] LABS: Partial Thromboplastin Time 57.6 Seconds (21.0-31.0)
--- NOTE | 2019-01-17 17:51 | Anesthesiology Consultation ---
Date of Service January 17, 2019 The patient understands some Kazakh but mainly speaks Chilean. Consent was obtained for general anesthesia using a video screen [place]an talkback host. Assessment & Plan (1) Encounter for pre-operative examination: Chart Review Chart Review: Acceptable Risk for Surgery and Patient NOT seen in Pre Admission Testing Consults Requested none History Surgery Operation Date: 01/18/19 07:00 Proposed Procedures p Hemorrhoidectomy - Thaddeus Webb, DO Height/Weight Height: 5 ft 9 in Weight: 95.1 kg Allergies Allergy/AdvReac Type Severity Reaction Status Date / Time adhesive Allergy Unknown RASH Verified 01/13/19 18:29 Medications Home Medications Medication Instructions Recorded Confirmed Last Taken cholecalciferol (vitamin D3) 2,000 unit PO DAILY #0 02/19/15 01/13/19 01/13/19 simvastatin 20 mg PO DAILY #0 02/19/15 01/13/19 01/13/19 finasteride 5 mg PO DAILY #0 tab 02/26/16 01/13/19 01/13/19 metoprolol tartrate 25 mg PO BID #0 02/26/16 01/13/19 01/13/19 tamsulosin 0.4 mg PO DAILY #0 cap 02/26/16 01/13/19 01/13/19 ferrous sulfate 325 mg PO DAILY #0 05/31/17 01/13/19 01/13/19 amlodipine 5 mg PO DAILY 10/03/18 01/13/19 01/13/19 calcium carbonate [Calcium 500] 500 mg PO DAILY 10/03/18 01/13/19 01/13/19 levothyroxine 50 mcg PO DAILY 10/03/18 01/13/19 01/13/19 hydrocortisone [Anusol-HC] 1 appln MS BID PRN #30 gm 10/10/18 01/13/19 Unknown benazepril 20 1 tab PO BID tab 12/02/18 01/13/19 01/13/19 mg-hydrochlorothiazide 25 mg tablet warfarin 3 mg PO 4XWK 01/13/19 01/13/19 01/12/19 warfarin 4.5 mg PO 3XWK 01/13/19 01/13/19 01/13/19 Active Medications Generic Name Dose Route Start Last Admin Trade Name Freq PRN Reason Stop Dose Admin Amlodipine Besylate 5 mg 01/14/19 09:00 01/17/19 08:46 Norvasc PO 02/13/19 08:59 5 mg DAILY DONALD Administration Enalapril Maleate 20 mg 01/14/19 09:00 01/17/19 08:46 Vasotec PO 02/13/19 08:59 20 mg BID DONALD Administration Finasteride 5 mg 01/14/19 09:00 01/17/19 08:46 Proscar PO 02/13/19 08:59 5 mg DAILY DONALD Administration Hydrochlorothiazide 25 mg 01/14/19 09:00 01/17/19 08:46 Hctz PO 02/13/19 08:59 25 mg [id number] DONALD Administration Heparin Sodium/Dextrose 25,000 units in 500 mls @ 21 mls/hr 01/16/19 07:45 01/17/19 16:49 Heparin Sodium/Dextrose IV 02/15/19 07:44 1,050 units/hr .[id number] DONALD 21 mls/hr Titration Protocol 1,050 UNITS/HR Levothyroxine Sodium 50 mcg 01/14/19 06:30 01/17/19 06:30 Synthroid PO 02/13/19 06:29 50 mcg DAILYBB DONALD Administration Metoprolol Tartrate 25 mg 01/13/19 21:56 01/17/19 08:46 Lopressor PO 02/12/19 21:55 25 mg BID DONALD Administration Simvastatin 20 mg 01/14/19 09:00 01/17/19 08:46 Zocor PO 02/13/19 08:59 20 mg DAILY DONALD Administration Tamsulosin HCl 0.4 mg 01/14/19 09:00 01/17/19 08:46 Flomax PO 02/13/19 08:59 0.4 mg DAILY DONALD Administration Past Medical History Medical History Pacemaker HLD (hyperlipidemia) HTN (hypertension) Hypokalemia Hyponatremia GI bleed (Acute) Anemia (Acute) Dizziness MGUS (monoclonal gammopathy of unknown significance) Past Family History Family History Other Hypertension Past Surgical History Surgical History H/O mitral valve replacement with mechanical valve (Acute) S/P hemorrhoidectomy Social History Smoking Status: Never smoker Hx Alcohol Use: No Hx Substance Use: No Review of Systems no chest pain or sob Physical Exam Vital Signs Last Vital Signs Temp 36.7 C 01/17/19 14:51 Pulse 59 L 01/17/19 14:51 Resp 16 01/17/19 14:51 BP 121/68 01/17/19 14:51 Pulse Ox 97 01/17/19 14:51 Constitutional + obese ENMT Mouth: + dentures Thyromental Distance: > or= 3.5 Finger Breadths Mallampati Class: III Neck normal visual inspection and + limited neck extension (slightly) Respiratory normal respiratory effort Cardiovascular Rate/Rhythm: regular rate and regular rhythm Chest (Breasts) Chest: + pacemaker Musculoskeletal Extremities: extremities normal to inspection Neurologic moves all extremities Psychiatric Orientation: alert and oriented x 3 Testing Laboratory Results 01/17/19 08:27 01/17/19 08:27 PT 12.8 Seconds (9.0-12.0) H 01/17/19 15:26 INR 1.3 (0.9-1.1) H 01/17/19 15:26 APTT 57.6 Seconds (21.0-31.0) H* 01/17/19 15:26 Blood Type B Positive 01/13/19 19:01 Antibody Screen NEGATIVE 01/13/19 19:01 Electrocardiogram Date: 01/13/19 V paced rate 60
[2019-01-18] MEDS: HEPARIN SODIUM/DEXTROSE 25,000 UNITS/500 ML BAG IV SCH (00:14)
[2019-01-18] MEDS: LEVOTHYROXINE SODIUM 50 MCG TABLET PO SCH (06:12)
[2019-01-18 06:24] LABS: Hemoglobin 9.4 g/dL (14.0-18.0); Mean Corpuscular Hemoglobin 27.5 pg (25-34); Mean Corpuscular Hgb Conc 32.4 g/dL (32-36); Mean Corpuscular Volume 84.8 fL (80-100); Platelet Count 192 K/uL (130-400); RDW Standard Deviation 49.6 fL (36.4-46.3); Red Blood Count 3.42 M/uL (4.7-6.1); White Blood Count 3.86 K/uL (4.8-10.8)
[2019-01-18] MEDS ORDERED: BUPIVACAINE/EPINEPHRINE 0.5% MPF 1:200,000 30 ML VIAL ONE (06:40)
[2019-01-18 06:41] LABS: INR 1.2 (0.9-1.1); Partial Thromboplastin Time 27.6 Seconds (21.0-31.0); Prothrombin Time 11.7 Seconds (9.0-12.0)
[2019-01-18] MEDS ORDERED: GELATIN SPONGE SZ 100 ONE (06:41)
[2019-01-18] MEDS ORDERED: fentaNYL citrate 100 MCG/2 ML VIAL IV PRN (06:49)
[2019-01-18] MEDS ORDERED: ONDANSETRON INJ 2 MG/ML 2 ML VIAL IV PRN (06:49)
[2019-01-18] MEDS ORDERED: ePHEDrine sulfate 50 MG/ML AMP IV PRN (06:49)
[2019-01-18] MEDS ORDERED: ATROPINE SULFATE 0.1 MG/ML 10ML SYR IV PRN (06:49)
[2019-01-18] MEDS ORDERED: CEFAZOLIN 2,000 MG/15 ML IV PUSH IV ONE (06:53)
[2019-01-18] MEDS ORDERED: PROPOFOL IV EMULSION 10 MG/ML 20 ML VIAL IV ONE (06:57)
[2019-01-18] MEDS ORDERED: LIDOCAINE HCL 2% 2 ML VIAL/AMP(20MG/ML) INFIL ONE (06:57)
[2019-01-18] MEDS ORDERED: ROCURONIUM BROMIDE 10 MG/ML 5 ML VIAL ONE (06:57)
[2019-01-18] MEDS ORDERED: fentaNYL citrate 100 MCG/2 ML VIAL ONE ×2 (06:57→07:35)
[2019-01-18] MEDS ORDERED: SUCCINYLCHOLINE CHLORIDE 20 MG/ML 10 ML VIAL ONE (06:57)
[2019-01-18 06:58] LABS: BUN Creatinine Ratio 18.9 (10-20); Calcium 9.2 mg/dl (8.5-10.1); Creatinine Clr Calc Pharmacy 57.1 ml/min; Est GFR (African American) 60.8; Est GFR (Non-African American) 52.4; Potassium 3.9 mmol/L (3.5-5.1)
--- NOTE | 2019-01-18 06:58 | History & Physical Bridge Note ---
Date of Service January 18, 2019 History & Physical Bridge Note I have examined the patient, reviewed the History & Physical and in the interval since the performance of the History & Physical I have noted the following changes of clinical significance: no changes noted had bleeding yesterday but none now... d/w him and his son...no questions. will proceed with EUA with hemorrhoidectomy and surgery as needed. questions answered.
[2019-01-18] MEDS ORDERED: CEFAZOLIN 2000MG 2,000 MG/15 ML SYR IV ONE (07:36)
[2019-01-18] MEDS ORDERED: LIDOCAINE 2% JELLY 5 ML TUBE ONE (07:45)
[2019-01-18] MEDS ORDERED: ONDANSETRON INJ 2 MG/ML 2 ML VIAL ONE (07:50)
[2019-01-18] MEDS ORDERED: ePHEDrine sulfate 50 MG/ML SYR ONE (07:51)
--- NOTE | 2019-01-18 08:47 | Operative Report ---
PG Post Operative Report Pre & Post Diagnosis Operation Date: 01/18/19 07:00 Pre-Op Diagnosis: RECTAL BLEED Post-Op Diagnosis Hemorrhoids I identified the patient and participated in the time-out.: Yes Procedure Operation Date: 01/18/19 07:00 Actual Procedures p Rectal exam under anesthesia, Hemorrhoidectomy(Not Applicable) - Thaddeus Webb DO Surgeon Thaddeus Webb DO Director Records Management cherry Jones Estimated Blood Loss 10 Findings Consistent with Post-Op Diagnosis Specimens hemorrhoid tissue Description of Procedure After informed consent was obtained the patient was taken to the operating room and placed in a supine position. After successful intubation the patient was rolled into a prone jackknife position. Benzoin and 3 inch silk tape was used to tape the buttocks apart. The rectal area was sterilely prepped and draped with Betadine solution. I began with visual inspection of the area both manually as well as with an anoscope. There was no evidence of a fissure or fistula. There was no rectal polyps or masses. There were 2 areas of hemorrhoidal tissue one at the 5 o'clock position and one at the 7 o'clock position. Both of these did have some fresh blood associated with him and thus were the likely sources of his ongoing bleeding. I began with the 7:00 hemorrhoid. We injected the anoderm with Marcaine and epinephrine to elevate the mucosa. I made an incision the mucosa from the anoderm using a Metzenbaum scissor. I then used the LigaSure device to come under the pedicle of the hemorrhoid. Once I had it completely removed it was sent to pathology. I used 2-0 chromic in a running locked stitch to help with hemostasis as well as the necrosis and the remaining hemorrhoidal tissue. I used the exact same technique for the 5:00 lesion. Again anoderm was with Metzenbaum scissors and LigaSure device to take down the pedicle. It was also oversewn with a running locked 2-0 chromic stitch. I anesthetized the remainder of the rectal area using some additional Marcaine. There was adequate hemostasis at the end of the procedure. I did irrigate the rectal vault. A piece of Gelfoam lubricated with lidocaine jelly was inserted and the anoscope was removed. The patient was rolled into a supine position extubated and transferred recovery in stable condition. My physician personnel assistant was present to the entire case. She helped prep the patient. Helped with retraction and exposure during my procedure. I attest to the content of the Intraoperative Record and any orders documented therein. Any exceptions are noted below.
--- NOTE | 2019-01-18 08:56 | Anesthesiology Progress Note ---
Date of Service January 18, 2019 Anesthesia Post Procedure Vital Signs Vital Signs: Temp Pulse Pulse Pulse Resp BP BP 01/18/19 08:45 36.4 C L 60 14 127/60 01/18/19 08:35 60 14 129/63 01/18/19 08:25 60 14 126/60 01/18/19 08:18 36.4 C L 80 13 129/54 L 01/18/19 06:36 36.7 C 61 18 116/90 01/18/19 06:20 36.7 C 60 14 145/74 H 01/18/19 00:05 01/17/19 23:02 36.8 C 60 14 128/75 01/17/19 20:33 60 16 127/68 01/17/19 14:51 36.7 C 59 L 16 121/68 Pulse Ox Pulse Ox 01/18/19 08:45 97 01/18/19 08:35 99 01/18/19 08:25 100 01/18/19 08:18 100 01/18/19 06:36 97 01/18/19 06:20 94 01/18/19 00:05 98 01/17/19 23:02 98 01/17/19 20:33 97 01/17/19 14:51 97 Pain Intensity Abdomen: Pain Intensity: 0 Generalized: Pain Intensity: 0 Transfer of Care Handoff Completed per policy Notes Mental Status: alert / awake / arousable Patient Amnestic to Procedure: Yes Nausea / Vomiting: adequately controlled Pain: adequately controlled Airway Patency, RR, SpO2: stable & adequate BP & HR: stable & adequate Hydration State: stable & adequate Anesthetic Complications: no major complications apparent
[2019-01-18] MEDS ORDERED: MoRPHine SULFATE 4 MG/ML 1 ML CARP\\VIAL IV PRN (09:19)
[2019-01-18] MEDS ORDERED: HYDROCODONE/ACETAMOPHEN 5/325MG TAB PO PRN (09:19)
[2019-01-18] MEDS ORDERED: MoRPHine SULFATE 2 MG/ML CARP IV PRN (09:19)
[2019-01-18] MEDS: ENALAPRIL MALEATE 10 MG TAB PO SCH ×2 (09:29→21:14)
[2019-01-18] MEDS: FINASTERIDE 5 MG TAB PO SCH (09:29)
[2019-01-18] MEDS: AMLODIPINE BESYLATE 5 MG TAB PO SCH (09:29)
[2019-01-18] MEDS: TAMSULOSIN HCL 0.4 MG CAP PO SCH (09:29)
[2019-01-18] MEDS: METOPROLOL TARTRATE 25 MG TAB PO SCH ×2 (09:29→21:14)
[2019-01-18] MEDS: SIMVASTATIN 20 MG TAB PO SCH (09:29)
[2019-01-18] MEDS: hydroCHLOROthiazide 25 MG TAB PO SCH ×2 (09:30→17:31)
[2019-01-18] MEDS: DOCUSATE SODIUM 100 MG CAP PO SCH ×2 (13:03→21:14)
--- NOTE | 2019-01-18 16:18 | Hospitalist Progress Note ---
Date of Service January 18, 2019 Assessment & Plan (1) Acute blood loss anemia: Patient was recently admitted on 10/10/2018 for GI bleed and found to have internal/external hemorrhoids on colonoscopy. He was scheduled to see rectal surgeon on 01/18/2019. - Continues to have mild bleeding with BMs. - Hemoglobin improved to 8.4 after 2 units PRBCs up from hemoglobin on admission of 6.9. Baseline hemoglobin is 9-10 range - possibly of chronic blood loss versus of chronic disease. - Hemorrhoidectomy today with Dr. Webb - Holding heparin gtt x 24 hours on the advise of cardiology. Will restart tomorrow morning unless we hear from them otherwise. Will restart warfarin tonight. (2) Rectal bleeding: Likely from hemorrhoids as above. - As above (3) H/O mitral valve replacement with mechanical valve: Mechanical mitral valve, chronic anticoagulation. - INR down to 1.9 on 01/16. - Heparin gtt tomorrow. (4) Pacemaker: Ventricularly paced rhythm, placed for symptomatic bradycardia. - Stable today. (5) HTN (hypertension): Blood pressures normal to elevated. Continue amlodipine, enalapril, HCTZ, and metoprolol - Stable on 01/18 at 125/65. (6) HLD (hyperlipidemia): Continue statin (7) Hyponatremia: Sodium low at 127 on admission, now improved with transfusion and normal saline IV fluids. - Follow BMP - If returns, consider discontinuing HCTZ (8) MGUS (monoclonal gammopathy of unknown significance): Noted in the chart, unclear if follows with hematology. - No inpatient needs (9) Permanent atrial fibrillation: Continues on metoprolol for rate control, with pacemaker in place. - Restart warfarin as above (10) BPH (benign prostatic hyperplasia): Now with retnetion Continue finasteride, tamsulosin - 1 more straight cath, then put in Cohen temporarily (11) Hypothyroidism: TSH mildly elevated at 6 this admission, but no symptoms of hypothyroidism. Continue levothyroxine - Recommend repeat TSH in 4-6 weeks (12) DVT prophylaxis: Heparin gtt as above Subjective Feeling well after his procedure. No bleeding afterward. Is having some urinary retention post-operatively. Reports no fevers/chills, chest pain, shortness of breath, abdominal pain, nausea, or vomiting. Physical Exam Constitutional: WD/WN, vitals as above Eyes: EOM intact bilaterally; no conjunctival abnormality ENMT: external ear and nose normal, oropharynx normal Neck: trachea midline, no thyromegaly normal visual inspection Respiratory: normal respiratory effort, lungs clear to auscultation no respiratory distress Cardiovascular: RRR, no murmur, no edema Heart Sounds: + click (Mechanical from heart valve) Gastrointestinal (Abdomen): Inspection/Auscultation: abdomen normal to inspection; abdomen not distended Musculoskeletal: no cyanosis or clubbing, extremities motor strength 5/5 Skin: no rashes, warm and dry Neurologic: moves all extremities and awake Psychiatric: Orientation: alert, oriented to person and cooperative Results & Data Vital Signs (Past 12 Hours) Vital Signs Temp Pulse Pulse Pulse Resp BP BP 01/18/19 15:02 36.7 C 59 L 18 123/67 01/18/19 13:34 59 L 16 126/69 01/18/19 11:20 59 L 16 150/73 H 01/18/19 10:49 58 L 16 130/67 01/18/19 09:50 58 L 16 132/67 01/18/19 09:20 36.4 C L 62 16 131/65 01/18/19 09:00 60 15 123/62 01/18/19 08:45 36.4 C L 60 14 127/60 01/18/19 08:35 60 14 129/63 01/18/19 08:25 60 14 126/60 01/18/19 08:18 36.4 C L 80 13 129/54 L 01/18/19 06:36 36.7 C 61 18 116/90 01/18/19 06:20 36.7 C 60 14 145/74 H Pulse Ox 01/18/19 15:02 93 01/18/19 13:34 96 01/18/19 11:20 96 01/18/19 10:49 97 01/18/19 09:50 97 01/18/19 09:20 99 01/18/19 09:00 95 01/18/19 08:45 97 01/18/19 08:35 99 01/18/19 08:25 100 01/18/19 08:18 100 01/18/19 06:36 97 01/18/19 06:20 94 PG Care Time/CCT Total # of Minutes Spent Total Time Spent with Patient: Total time spent is greater than 50% in coordination of care (as documented) at patient's floor/unit and/or counseling patient:
[2019-01-18] MEDS: WARFARIN SOD 3 MG TAB PO SCH (17:31)
[2019-01-18] MEDS: HYDROCODONE/ACETAMOPHEN 5/325MG TAB PO PRN (19:19)
[2019-01-19] MEDS: LEVOTHYROXINE SODIUM 50 MCG TABLET PO SCH (05:19)
[2019-01-19 06:25] LABS: Basophils # (auto) 0.01 K/uL (0-0.2); Basophils % (auto) 0.2 %; Eosinophils # (auto) 0.18 K/uL (0-0.5); Hematocrit (blood only) 27.9 % (42-52); Hemoglobin 9.2 g/dL (14.0-18.0); Lymphocytes # (auto) 0.68 K/uL (1.2-3.4); Lymphocytes % (auto) 11.2 %; Mean Corpuscular Hemoglobin 28.6 pg (25-34); Mean Corpuscular Volume 86.6 fL (80-100); Mean Platelet Volume 9.4 fL (7.4-10.4); Monocytes # (auto) 0.72 K/uL (0.11-0.59); Monocytes % (auto) 11.9 %; Neutrophils # (auto) 4.47 K/uL (1.4-6.5); Neutrophils % (auto) 73.7 %; Platelet Count 189 K/uL (130-400); RDW Coefficient of Variation 15.8 % (11.5-14.5); RDW Standard Deviation 50.5 fL (36.4-46.3); Red Blood Count 3.22 M/uL (4.7-6.1); White Blood Count 6.06 K/uL (4.8-10.8)
[2019-01-19 07:01] LABS: BUN Creatinine Ratio 13.7 (10-20); Creatinine Clr Calc Pharmacy 57.1 ml/min; Est GFR (African American) 60.8; Est GFR (Non-African American) 52.4; Potassium 3.9 mmol/L (3.5-5.1)
[2019-01-19] MEDS: ENALAPRIL MALEATE 10 MG TAB PO SCH ×2 (08:07→20:46)
[2019-01-19] MEDS: DOCUSATE SODIUM 100 MG CAP PO SCH ×2 (08:07→20:46)
[2019-01-19] MEDS: FINASTERIDE 5 MG TAB PO SCH (08:08)
[2019-01-19] MEDS: hydroCHLOROthiazide 25 MG TAB PO SCH ×2 (08:08→17:07)
[2019-01-19] MEDS: TAMSULOSIN HCL 0.4 MG CAP PO SCH (08:08)
[2019-01-19] MEDS: SIMVASTATIN 20 MG TAB PO SCH (08:09)
[2019-01-19] MEDS: METOPROLOL TARTRATE 25 MG TAB PO SCH ×2 (08:09→20:47)
[2019-01-19] MEDS: AMLODIPINE BESYLATE 5 MG TAB PO SCH (08:12)
--- NOTE | 2019-01-19 08:45 | Anesthesiology Progress Note ---
Date of Service January 19, 2019 Anesthesia Post Procedure Vital Signs Vital Signs: Temp Pulse Pulse Pulse Resp BP BP 01/19/19 07:12 36.7 C 59 L 16 134/64 01/19/19 03:42 36.8 C 59 L 18 118/65 01/18/19 23:25 36.7 C 61 18 110/65 01/18/19 21:12 62 128/68 01/18/19 15:02 36.7 C 59 L 18 123/67 01/18/19 13:34 59 L 16 126/69 01/18/19 11:20 59 L 16 150/73 H 01/18/19 10:49 58 L 16 130/67 01/18/19 09:50 58 L 16 132/67 01/18/19 09:20 36.4 C L 62 16 131/65 01/18/19 09:00 60 15 123/62 01/18/19 08:45 36.4 C L 60 14 127/60 Pulse Ox 01/19/19 07:12 94 01/19/19 03:42 96 01/18/19 23:25 95 01/18/19 21:12 01/18/19 15:02 93 01/18/19 13:34 96 01/18/19 11:20 96 01/18/19 10:49 97 01/18/19 09:50 97 01/18/19 09:20 99 01/18/19 09:00 95 01/18/19 08:45 97 Pain Intensity Abdomen: Pain Intensity: 0 Generalized: Pain Intensity: 3 Notes Mental Status: alert / awake / arousable and participated in evaluation Patient Amnestic to Procedure: Yes Nausea / Vomiting: adequately controlled Pain: adequately controlled Airway Patency, RR, SpO2: stable & adequate BP & HR: stable & adequate Hydration State: stable & adequate Anesthetic Complications: no major complications apparent and Pt Satisfied with anesthetic care
[2019-01-19] MEDS ORDERED: Heparin IV Standard *NO* Bolus IV STA (09:43)
[2019-01-19 10:32] LABS: Basophils # (auto) 0.01 K/uL (0-0.2); Basophils % (auto) 0.2 %; Eosinophils # (auto) 0.17 K/uL (0-0.5); Hematocrit (blood only) 29.1 % (42-52); Immature Granulocytes # (auto) 0.01 K/uL (0.00-0.02); Immature Granulocytes % (auto) 0.2 %; Lymphocytes # (auto) 0.71 K/uL (1.2-3.4); Lymphocytes % (auto) 12.5 %; Mean Corpuscular Hemoglobin 26.7 pg (25-34); Mean Corpuscular Volume 86.4 fL (80-100); Mean Platelet Volume 8.8 fL (7.4-10.4); Monocytes # (auto) 0.65 K/uL (0.11-0.59); Monocytes % (auto) 11.5 %; Neutrophils # (auto) 4.12 K/uL (1.4-6.5); Neutrophils % (auto) 72.6 %; Platelet Count 176 K/uL (130-400); RDW Coefficient of Variation 15.9 % (11.5-14.5); RDW Standard Deviation 50.3 fL (36.4-46.3); Red Blood Count 3.37 M/uL (4.7-6.1); White Blood Count 5.67 K/uL (4.8-10.8)
[2019-01-19 10:45] LABS: Mean Corpuscular Hgb Conc 30.9 g/dL (32-36)
[2019-01-19 10:49] LABS: INR 1.2 (0.9-1.1); Partial Thromboplastin Ratio 1.1; Partial Thromboplastin Time 30.7 Seconds (21.0-31.0); Prothrombin Time 12.2 Seconds (9.0-12.0)
[2019-01-19] MEDS: HEPARIN SODIUM/DEXTROSE 25,000 UNITS/500 ML BAG IV SCH (11:32)
--- NOTE | 2019-01-19 13:42 | Surgery Progress Note ---
Date of Service January 19, 2019 Assessment & Plan (1) S/P hemorrhoidectomy: POD#1 hemorrhoidectomy Agustin catheter placed for acute urinary retention post op Pain well controlled; continue current pain regimen INR 1.2 today and Hbg stable at 9.2 No blood per rectum since surgery. Heparin gtt restarted this AM and patient's coumadin resumed. Will continue to monitor for BRBPR with the resumption of anticoagulation. Diet as tolerated Subjective Patient states that his pain is well controlled. Denies any bleeding per rectum since procedure. Only complaint was trouble voiding and now has agustin in place. Physical Exam Physical Exam: awake/alert Constitutional: well developed and well nourished; no acute distress Results & Data Vital Signs (Past 12 Hours) Vital Signs Temp Pulse Resp BP BP Pulse Ox 01/19/19 07:12 36.7 C 59 L 16 134/64 94 01/19/19 03:42 36.8 C 59 L 18 118/65 96 PG Care Time/CCT Total # of Minutes Spent Total Time Spent with Patient: Total time spent is greater than 50% in coordination of care (as documented) at patient's floor/unit and/or counseling patient:
--- NOTE | 2019-01-19 15:38 | Hospitalist Progress Note ---
Date of Service January 19, 2019 Assessment & Plan (1) Acute blood loss anemia: Patient was recently admitted on 10/10/2018 for GI bleed and found to have internal/external hemorrhoids on colonoscopy. He was scheduled to see rectal surgeon on 01/18/2019. - Hemoglobin improved to 8.4 after 2 units PRBCs up from hemoglobin on admission of 6.9. Baseline hemoglobin is 9-10 range - possibly of chronic blood loss versus of chronic disease. - Hemorrhoidectomyon on 01/[address] Webb - No complications. - Restarted heparin gtt and warfarin for his mechanical heart valve. (2) Rectal bleeding: Likely from hemorrhoids as above. - As above (3) H/O mitral valve replacement with mechanical valve: Mechanical mitral valve, chronic anticoagulation. - INR down to 1.9 on 01/16. - Heparin gtt restarted after 24 hours. (4) Pacemaker: Ventricularly paced rhythm, placed for symptomatic bradycardia. - Stable today. (5) HTN (hypertension): Blood pressures normal to elevated. Continue amlodipine, enalapril, HCTZ, and metoprolol - Stable on 01/19 at 120/65. (6) HLD (hyperlipidemia): Continue statin (7) Hyponatremia: Sodium low at 127 on admission, now improved with transfusion and normal saline IV fluids. - Follow BMP - If returns, consider discontinuing HCTZ (8) MGUS (monoclonal gammopathy of unknown significance): Noted in the chart, unclear if follows with hematology. - No inpatient needs (9) Permanent atrial fibrillation: Continues on metoprolol for rate control, with pacemaker in place. - Restart warfarin as above (10) BPH (benign prostatic hyperplasia): Now with retention. Continue finasteride, tamsulosin - Cohen re-inserted over the night of 01/18-01/19. Will give 48 hour trial of Cohen, then remove and try again. (11) Hypothyroidism: TSH mildly elevated at 6 this admission, but no symptoms of hypothyroidism. Continue levothyroxine - Recommend repeat TSH in 4-6 weeks (12) DVT prophylaxis: Heparin gtt as above Subjective Some mild rectal pain during coughing, but otherwise none. Had bladder pressure and urinary retention. Reports no fevers/chills, chest pain, shortness of breath, abdominal pain, nausea, or vomiting. Physical Exam Constitutional: WD/WN, vitals as above Eyes: EOM intact bilaterally; no conjunctival abnormality ENMT: external ear and nose normal, oropharynx normal Neck: trachea midline, no thyromegaly normal visual inspection Respiratory: normal respiratory effort, lungs clear to auscultation no respiratory distress Cardiovascular: RRR, no murmur, no edema Heart Sounds: + click (Mechanical from heart valve) Gastrointestinal (Abdomen): Inspection/Auscultation: abdomen normal to inspection; abdomen not distended Musculoskeletal: no cyanosis or clubbing, extremities motor strength 5/5 Skin: no rashes, warm and dry Neurologic: moves all extremities and awake Psychiatric: Orientation: alert, oriented to person and cooperative Results & Data Vital Signs (Past 12 Hours) Vital Signs Temp Pulse Resp BP BP Pulse Ox 01/19/19 15:14 36.7 C 60 18 118/69 97 01/19/19 07:12 36.7 C 59 L 16 134/64 94 01/19/19 03:42 36.8 C 59 L 18 118/65 96 PG Care Time/CCT Total # of Minutes Spent Total Time Spent with Patient: Total time spent is greater than 50% in coordination of care (as documented) at patient's floor/unit and/or counseling patient:
[2019-01-19] MEDS: WARFARIN SOD 3 MG TAB PO SCH (17:05)
[2019-01-19 17:51] LABS: Partial Thromboplastin Ratio 2.2
[2019-01-19 17:53] LABS: Partial Thromboplastin Time 60.6 Seconds (21.0-31.0)
[2019-01-20] MEDS ORDERED: POLYETHYLENE (MIRALAX) 17 GM PACK PO PRN (01:19)
[2019-01-20] MEDS ORDERED: POLYETHYLENE (MIRALAX) 17 GM PACK PO ONE (01:20)
[2019-01-20] MEDS: HEPARIN SODIUM/DEXTROSE 25,000 UNITS/500 ML BAG IV SCH ×2 (03:18→23:36)
[2019-01-20] MEDS: LEVOTHYROXINE SODIUM 50 MCG TABLET PO SCH (05:25)
[2019-01-20 05:59] LABS: Basophils # (auto) 0.02 K/uL (0-0.2); Basophils % (auto) 0.3 %; Eosinophils # (auto) 0.18 K/uL (0-0.5); Eosinophils % (auto) 3.1 %; Hematocrit (blood only) 27.8 % (42-52); Hemoglobin 8.8 g/dL (14.0-18.0); Immature Granulocytes # (auto) 0.01 K/uL (0.00-0.02); Immature Granulocytes % (auto) 0.2 %; Lymphocytes # (auto) 0.75 K/uL (1.2-3.4); Mean Corpuscular Hemoglobin 27.1 pg (25-34); Mean Corpuscular Hgb Conc 31.7 g/dL (32-36); Mean Corpuscular Volume 85.5 fL (80-100); Mean Platelet Volume 9.9 fL (7.4-10.4); Monocytes # (auto) 0.71 K/uL (0.11-0.59); Monocytes % (auto) 12.3 %; Neutrophils # (auto) 4.09 K/uL (1.4-6.5); Neutrophils % (auto) 71.1 %; Platelet Count 182 K/uL (130-400); RDW Coefficient of Variation 15.6 % (11.5-14.5); RDW Standard Deviation 49.2 fL (36.4-46.3); Red Blood Count 3.25 M/uL (4.7-6.1); White Blood Count 5.76 K/uL (4.8-10.8)
[2019-01-20] MEDS ORDERED: POLYETHYLENE (MIRALAX) 17 GM PACK PO SCH (09:15)
--- NOTE | 2019-01-20 09:15 | Surgery Progress Note ---
Date of Service January 20, 2019 Assessment & Plan (1) S/P hemorrhoidectomy: POD#2 hemorrhoidectomy Pain well controlled On colace currently for bowel regimen, will start miralax in addition Hbg down slightly to 8.8 from 9 day prior There is some expected blood per rectum post operatively from this procedure. So far the amount patient passed does not sound overly significant, but we will continue to monitor for BRBPR as he continues on heparin gtt bridge to coumadin. Encourage staff/pt to save sample if this happens again for someone from medicine or surgery to evaluate [facility] this weekend as above. expect some bleeding considering recent surgery and being anticoa gulated continue laxatives can d/c when ok with primary service [facility] covering this weekend if any questions/issues Subjective Patient states pain is well controlled. Says he had some blood per rectum when trying to have a BM that per pt and RN history was more than a few drops, but a small amount. Physical Exam Physical Exam: awake/alert/pleasant Results & Data Vital Signs (Past 12 Hours) Vital Signs Temp Pulse Pulse Resp BP BP Pulse Ox 01/20/19 07:22 36.8 C 60 18 116/69 96 01/20/19 00:00 01/19/19 23:21 36.7 C 60 18 122/64 95 Pulse Ox 01/20/19 07:22 01/20/19 00:00 95 01/19/19 23:21 PG Care Time/CCT Total # of Minutes Spent Total Time Spent with Patient: Total time spent is greater than 50% in coordination of care (as documented) at patient's floor/unit and/or counseling patient:
[2019-01-20] MEDS: TAMSULOSIN HCL 0.4 MG CAP PO SCH (09:23)
[2019-01-20] MEDS: AMLODIPINE BESYLATE 5 MG TAB PO SCH (09:23)
[2019-01-20] MEDS: hydroCHLOROthiazide 25 MG TAB PO SCH ×2 (09:24→16:31)
[2019-01-20] MEDS: SIMVASTATIN 20 MG TAB PO SCH (09:24)
[2019-01-20] MEDS: FINASTERIDE 5 MG TAB PO SCH (09:24)
[2019-01-20] MEDS: ENALAPRIL MALEATE 10 MG TAB PO SCH ×2 (09:24→21:24)
[2019-01-20] MEDS: METOPROLOL TARTRATE 25 MG TAB PO SCH ×2 (09:24→21:23)
[2019-01-20] MEDS: DOCUSATE SODIUM 100 MG CAP PO SCH ×2 (09:24→21:23)
[2019-01-20 12:38] LABS: Partial Thromboplastin Ratio 3.1
[2019-01-20 12:47] LABS: Partial Thromboplastin Time 85.1 Seconds (21.0-31.0)
[2019-01-20] MEDS: POLYETHYLENE (MIRALAX) 17 GM PACK PO SCH (12:51)
--- NOTE | 2019-01-20 15:42 | Hospitalist Progress Note ---
Date of Service January 20, 2019 Assessment & Plan (1) Acute blood loss anemia: Patient was recently admitted on 10/10/2018 for GI bleed and found to have internal/external hemorrhoids on colonoscopy. He was scheduled to see rectal surgeon on 01/18/2019. - Hemoglobin improved to 8.4 after 2 units PRBCs up from hemoglobin on admission of 6.9. Baseline hemoglobin is 9-10 range - possibly of chronic blood loss versus of chronic disease. - Hemorrhoidectomy on on 01/[address] Webb - No complications. - Restarted heparin gtt and warfarin for his mechanical heart valve on 01/19. - Still having some red blood with BMs. This is normal for about 2 weeks per surgery, probably even a bit longer given his anticoagulation. (2) Rectal bleeding: Likely from hemorrhoids as above. - As above (3) H/O mitral valve replacement with mechanical valve: Mechanical mitral valve, chronic anticoagulation. - INR down to 1.9 on 01/16. - Heparin gtt restarted after 24 hours. (4) Pacemaker: Ventricularly paced rhythm, placed for symptomatic bradycardia. - Stable today. (5) HTN (hypertension): Blood pressures normal to elevated. Continue amlodipine, enalapril, HCTZ, and metoprolol - Stable on 01/20 at 120/65. (6) HLD (hyperlipidemia): Continue statin (7) Hyponatremia: Sodium low at 127 on admission, now improved with transfusion and normal saline IV fluids. - Follow BMP - If returns, consider discontinuing HCTZ (8) MGUS (monoclonal gammopathy of unknown significance): Noted in the chart, unclear if follows with hematology. - No inpatient needs (9) Permanent atrial fibrillation: Continues on metoprolol for rate control, with pacemaker in place. - Restart warfarin as above (10) BPH (benign prostatic hyperplasia): Now with retention. Continue finasteride, tamsulosin - Cohen re-inserted over the night of 01/18-01/19. Will give 48 hour trial of Cohen, then remove and try again. (11) Hypothyroidism: TSH mildly elevated at 6 this admission, but no symptoms of hypothyroidism. Continue levothyroxine - Recommend repeat TSH in 4-6 weeks (12) DVT prophylaxis: Heparin gtt as above Subjective Still having some red blood with BMs. He has not had a good BM since his surgery; however, he is having minimal pain. Has the Cohen in still. Reports no fevers/chills, chest pain, shortness of breath, abdominal pain, nausea, or vomiting. Physical Exam Constitutional: WD/WN, vitals as above Eyes: EOM intact bilaterally; no conjunctival abnormality ENMT: external ear and nose normal, oropharynx normal Neck: trachea midline, no thyromegaly normal visual inspection Respiratory: normal respiratory effort, lungs clear to auscultation no respiratory distress Cardiovascular: RRR, no murmur, no edema Heart Sounds: + click (Mechanical from heart valve) Gastrointestinal (Abdomen): Inspection/Auscultation: abdomen normal to inspection; abdomen not distended Musculoskeletal: no cyanosis or clubbing, extremities motor strength 5/5 Skin: no rashes, warm and dry Neurologic: moves all extremities and awake Psychiatric: Orientation: alert, oriented to person and cooperative Results & Data Vital Signs (Past 12 Hours) Vital Signs Temp Pulse Resp BP BP Pulse Ox 01/20/19 15:11 36.7 C 62 18 119/69 95 01/20/19 07:22 36.8 C 60 18 116/69 96 PG Care Time/CCT Total # of Minutes Spent Total Time Spent with Patient: Total time spent is greater than 50% in coordination of care (as documented) at patient's floor/unit and/or counseling patient:
[2019-01-20] MEDS: WARFARIN SOD 3 MG TAB PO SCH (16:29)
[2019-01-20 20:58] LABS: Partial Thromboplastin Ratio 2.5
[2019-01-20 21:04] LABS: Partial Thromboplastin Time 67.5 Seconds (21.0-31.0)
[2019-01-21 03:29] LABS: Hematocrit (blood only) 27.8 % (42-52); Hemoglobin 8.8 g/dL (14.0-18.0); Mean Corpuscular Hgb Conc 31.7 g/dL (32-36); Mean Corpuscular Volume 85.3 fL (80-100); Mean Platelet Volume 9.5 fL (7.4-10.4); Platelet Count 181 K/uL (130-400); RDW Coefficient of Variation 15.7 % (11.5-14.5); RDW Standard Deviation 49.3 fL (36.4-46.3); Red Blood Count 3.26 M/uL (4.7-6.1); White Blood Count 5.05 K/uL (4.8-10.8)
[2019-01-21 03:45] LABS: BUN Creatinine Ratio 19.1 (10-20); Calcium 8.5 mg/dl (8.5-10.1); Creatinine Clr Calc Pharmacy 55.1 ml/min; Est GFR (African American) 58.2; Est GFR (Non-African American) 50.2; Potassium 3.8 mmol/L (3.5-5.1)
[2019-01-21 03:52] LABS: INR 1.5 (0.9-1.1); Partial Thromboplastin Ratio 2.6; Prothrombin Time 15.4 Seconds (9.0-12.0)
[2019-01-21 04:02] LABS: Partial Thromboplastin Time 71.1 Seconds (21.0-31.0)
[2019-01-21] MEDS: HEPARIN SODIUM/DEXTROSE 25,000 UNITS/500 ML BAG IV SCH (04:24)
[2019-01-21] MEDS: LEVOTHYROXINE SODIUM 50 MCG TABLET PO SCH (05:41)
[2019-01-21] MEDS: TAMSULOSIN HCL 0.4 MG CAP PO SCH (09:43)
[2019-01-21] MEDS: DOCUSATE SODIUM 100 MG CAP PO SCH ×2 (09:43→20:29)
[2019-01-21] MEDS: METOPROLOL TARTRATE 25 MG TAB PO SCH ×2 (09:44→20:29)
[2019-01-21] MEDS: ENALAPRIL MALEATE 10 MG TAB PO SCH ×2 (09:44→20:30)
[2019-01-21] MEDS: hydroCHLOROthiazide 25 MG TAB PO SCH ×2 (09:44→17:38)
[2019-01-21] MEDS: FINASTERIDE 5 MG TAB PO SCH (09:44)
[2019-01-21] MEDS: AMLODIPINE BESYLATE 5 MG TAB PO SCH (09:44)
[2019-01-21] MEDS: POLYETHYLENE (MIRALAX) 17 GM PACK PO SCH (09:45)
[2019-01-21] MEDS: SIMVASTATIN 20 MG TAB PO SCH (09:45)
[2019-01-21 10:48] LABS: Partial Thromboplastin Ratio 2.5
[2019-01-21 10:51] LABS: Partial Thromboplastin Time 67.7 Seconds (21.0-31.0)
[2019-01-21] MEDS ORDERED: MAGNESIUM CITRATE 296 ML/BTL PO STA (11:42)
--- NOTE | 2019-01-21 14:52 | Hospitalist Progress Note ---
Date of Service January 21, 2019 Assessment & Plan (1) Acute blood loss anemia: Patient was recently admitted on 10/10/2018 for GI bleed and found to have internal/external hemorrhoids on colonoscopy. He was scheduled to see rectal surgeon on 01/18/2019. - Hemoglobin improved to 8.4 after 2 units PRBCs up from hemoglobin on admission of 6.9. Baseline hemoglobin is 9-10 range - possibly of chronic blood loss versus of chronic disease. - Hemorrhoidectomy on on 01/[address] Webb - No complications. - Restarted heparin gtt and warfarin for his mechanical heart valve on 01/19. - Still having some red blood with BMs. This is normal for about 2 weeks per surgery, probably even a bit longer given his anticoagulation. - On 01/21, passing a small amount of BM. Mg Citrate ordered. (2) Rectal bleeding: Likely from hemorrhoids as above. - As above (3) H/O mitral valve replacement with mechanical valve: Mechanical mitral valve, chronic anticoagulation. - Heparin gtt restarted 24 hours after hemorrhoidectomy. - On 01/21, INR was 1.5. (4) Pacemaker: Ventricularly paced rhythm, placed for symptomatic bradycardia. - Stable today. (5) HTN (hypertension): Blood pressures normal to elevated. Continue amlodipine, enalapril, HCTZ, and metoprolol - Stable on 01/21 at 120/65. (6) HLD (hyperlipidemia): Continue statin (7) Hyponatremia: Sodium low at 127 on admission, now improved with transfusion and normal saline IV fluids. - Follow BMP - If returns, consider discontinuing HCTZ (8) MGUS (monoclonal gammopathy of unknown significance): Noted in the chart, unclear if follows with hematology. - No inpatient needs (9) Permanent atrial fibrillation: Continues on metoprolol for rate control, with pacemaker in place. - Restart warfarin as above (10) BPH (benign prostatic hyperplasia): Now with retention. Continue finasteride, tamsulosin - Cohen re-inserted over the night of 01/18-01/19. Will give 48 hour trial of Cohen, then remove and try again. (11) Hypothyroidism: TSH mildly elevated at 6 this admission, but no symptoms of hypothyroidism. Continue levothyroxine - Recommend repeat TSH in 4-6 weeks (12) DVT prophylaxis: Heparin gtt as above Subjective Doing well today. Had a small bowel movement, but not much today. Small amount of blood with it. Otherwise, doing well. Reports no fevers/chills, chest pain, shortness of breath, abdominal pain, nausea, or vomiting. Physical Exam Constitutional: WD/WN, vitals as above Eyes: EOM intact bilaterally; no conjunctival abnormality ENMT: external ear and nose normal, oropharynx normal Neck: trachea midline, no thyromegaly normal visual inspection Respiratory: normal respiratory effort, lungs clear to auscultation no respiratory distress Cardiovascular: RRR, no murmur, no edema Heart Sounds: + click (Mechanical from heart valve) Gastrointestinal (Abdomen): Inspection/Auscultation: abdomen normal to inspection; abdomen not distended Musculoskeletal: no cyanosis or clubbing, extremities motor strength 5/5 Skin: no rashes, warm and dry Neurologic: moves all extremities and awake Psychiatric: Orientation: alert, oriented to person and cooperative Results & Data Vital Signs (Past 12 Hours) Vital Signs Temp Pulse Resp BP Pulse Ox 01/21/19 09:40 58 L 118/64 01/21/19 08:00 36.9 C 60 18 124/72 98 PG Care Time/CCT Total # of Minutes Spent Total Time Spent with Patient: Total time spent is greater than 50% in coordination of care (as documented) at patient's floor/unit and/or counseling patient:
[2019-01-21] MEDS: WARFARIN SOD 3 MG TAB PO SCH (15:45)
[2019-01-21 17:28] LABS: Partial Thromboplastin Ratio 1.9
[2019-01-21 17:29] LABS: Partial Thromboplastin Time 52.1 Seconds (21.0-31.0)
[2019-01-21] MEDS: HYDROCODONE/ACETAMOPHEN 5/325MG TAB PO PRN (18:58)
[2019-01-22] MEDS: HEPARIN SODIUM/DEXTROSE 25,000 UNITS/500 ML BAG IV SCH (01:14)
[2019-01-22] MEDS: LEVOTHYROXINE SODIUM 50 MCG TABLET PO SCH (05:32)
[2019-01-22 06:42] LABS: INR 1.9 (0.9-1.1); Partial Thromboplastin Ratio 1.9; Prothrombin Time 18.2 Seconds (9.0-12.0)
[2019-01-22 07:12] LABS: Partial Thromboplastin Time 52.6 Seconds (21.0-31.0)
[2019-01-22] MEDS: DOCUSATE SODIUM 100 MG CAP PO SCH ×2 (08:12→20:50)
[2019-01-22] MEDS: TAMSULOSIN HCL 0.4 MG CAP PO SCH (08:12)
[2019-01-22] MEDS: hydroCHLOROthiazide 25 MG TAB PO SCH ×2 (08:12→17:09)
[2019-01-22] MEDS: FINASTERIDE 5 MG TAB PO SCH (08:13)
[2019-01-22] MEDS: AMLODIPINE BESYLATE 5 MG TAB PO SCH (08:13)
[2019-01-22] MEDS: METOPROLOL TARTRATE 25 MG TAB PO SCH ×2 (08:13→20:49)
[2019-01-22] MEDS: ENALAPRIL MALEATE 10 MG TAB PO SCH ×2 (08:14→20:50)
[2019-01-22] MEDS: SIMVASTATIN 20 MG TAB PO SCH (08:14)
[2019-01-22] MEDS: POLYETHYLENE (MIRALAX) 17 GM PACK PO SCH (08:14)
--- NOTE | 2019-01-22 13:57 | Hospitalist Progress Note ---
Date of Service January 22, 2019 Assessment & Plan (1) Acute blood loss anemia: Patient was recently admitted on 10/10/2018 for GI bleed and found to have internal/external hemorrhoids on colonoscopy. Hemoglobin improved to 8.4 after 2 units PRBCs up from hemoglobin on admission of 6.9. Baseline hemoglobin is 9-10 range - possibly of chronic blood loss versus of chronic disease. - Hemorrhoidectomy on on 01/[address] Webb - No complications. - Restarted heparin gtt and warfarin for his mechanical heart valve on 01/19. - On 01/22, passing non-bloody BMs. Hgb stable at 8.8. (2) H/O mitral valve replacement with mechanical valve: Mechanical mitral valve, chronic anticoagulation. Valve was put in ~16 years ago per the family. - Heparin gtt restarted 24 hours after hemorrhoidectomy. - On 01/22, INR was 1.9. Both patient and family are not willing to do Lovenox injections at home, thus the patient will be on a heparin gtt until his INR is >2.5. (3) Rectal bleeding: Likely from hemorrhoids as above. - As above (4) BPH (benign prostatic hyperplasia): Had retention after surgery which he reports has happened before. Continue finasteride, tamsulosin - Cohen re-inserted over the night of 01/18-01/19. Patient prefers to keep Cohen in and follow up outpatient with urology which he has done in the past. Will leave Cohen in on discharge. Will supply thigh bags. (5) Pacemaker: Ventricularly paced rhythm, placed for symptomatic bradycardia. - Stable today. (6) HTN (hypertension): Blood pressures normal to elevated. Continue amlodipine, enalapril, HCTZ, and metoprolol - Stable on 01/22 at 120/65. (7) HLD (hyperlipidemia): Continue statin (8) Hyponatremia: Sodium low at 127 on admission, now improved with transfusion and normal saline IV fluids. - Follow BMP - If returns, consider discontinuing HCTZ (9) MGUS (monoclonal gammopathy of unknown significance): Noted in the chart, unclear if follows with hematology. - No inpatient needs (10) Permanent atrial fibrillation: Continues on metoprolol. Now in a paced rhythm. - Restart warfarin as above (11) Hypothyroidism: TSH mildly elevated at 6 this admission, but no symptoms of hypothyroidism. Continue levothyroxine - Recommend repeat TSH in 4-6 weeks (12) DVT prophylaxis: Heparin gtt as above Subjective Feeling well today. Had two bowel movements without blood yesterday and today. Otherwise has no concerns. Reports no fevers/chills, chest pain, shortness of breath, abdominal pain, nausea, or vomiting. Physical Exam Constitutional: WD/WN, vitals as above Eyes: EOM intact bilaterally; no conjunctival abnormality ENMT: external ear and nose normal, oropharynx normal Neck: trachea midline, no thyromegaly normal visual inspection Respiratory: normal respiratory effort, lungs clear to auscultation no respiratory distress Cardiovascular: RRR, no murmur, no edema Heart Sounds: + click (Mechanical from heart valve) Gastrointestinal (Abdomen): Inspection/Auscultation: abdomen normal to inspection; abdomen not distended Musculoskeletal: no cyanosis or clubbing, extremities motor strength 5/5 Skin: no rashes, warm and dry Neurologic: moves all extremities and awake Psychiatric: Orientation: alert, oriented to person and cooperative Results & Data Vital Signs (Past 12 Hours) Vital Signs Temp Pulse Resp BP Pulse Ox 01/22/19 08:00 36.6 C 59 L 18 119/68 96 PG Care Time/CCT Total # of Minutes Spent Total Time Spent with Patient: Total time spent is greater than 50% in coordination of care (as documented) at patient's floor/unit and/or counseling patient:
[2019-01-22] MEDS: WARFARIN SOD 3 MG TAB PO SCH (15:45)
[2019-01-23 05:10] LABS: Hematocrit (blood only) 28.4 % (42-52); Hemoglobin 9.1 g/dL (14.0-18.0); Mean Corpuscular Hemoglobin 27.2 pg (25-34); Mean Platelet Volume 9.1 fL (7.4-10.4); Platelet Count 196 K/uL (130-400); RDW Coefficient of Variation 15.3 % (11.5-14.5); RDW Standard Deviation 47.4 fL (36.4-46.3); Red Blood Count 3.34 M/uL (4.7-6.1); White Blood Count 4.58 K/uL (4.8-10.8)
[2019-01-23] MEDS: LEVOTHYROXINE SODIUM 50 MCG TABLET PO SCH (05:15)
[2019-01-23 05:27] LABS: Partial Thromboplastin Ratio 2.2; Prothrombin Time 19.8 Seconds (9.0-12.0)
[2019-01-23 05:36] LABS: Calcium 8.6 mg/dl (8.5-10.1); Creatinine Clr Calc Pharmacy 56.3 ml/min; Est GFR (African American) 59.7; Est GFR (Non-African American) 51.5; Potassium 4.2 mmol/L (3.5-5.1)
[2019-01-23 05:48] LABS: Partial Thromboplastin Time 60.8 Seconds (21.0-31.0)
[2019-01-23] MEDS: HEPARIN SODIUM/DEXTROSE 25,000 UNITS/500 ML BAG IV SCH (06:18)
[2019-01-23] MEDS: TAMSULOSIN HCL 0.4 MG CAP PO SCH (08:07)
[2019-01-23] MEDS: hydroCHLOROthiazide 25 MG TAB PO SCH ×2 (08:07→17:27)
[2019-01-23] MEDS: DOCUSATE SODIUM 100 MG CAP PO SCH ×2 (08:07→20:18)
[2019-01-23] MEDS: SIMVASTATIN 20 MG TAB PO SCH (08:07)
[2019-01-23] MEDS: FINASTERIDE 5 MG TAB PO SCH (08:07)
[2019-01-23] MEDS: METOPROLOL TARTRATE 25 MG TAB PO SCH ×2 (08:07→20:19)
[2019-01-23] MEDS: ENALAPRIL MALEATE 10 MG TAB PO SCH ×2 (08:07→20:18)
[2019-01-23] MEDS: POLYETHYLENE (MIRALAX) 17 GM PACK PO SCH (08:07)
[2019-01-23] MEDS: AMLODIPINE BESYLATE 5 MG TAB PO SCH (08:07)
--- NOTE | 2019-01-23 12:42 | Hospitalist Progress Note ---
Date of Service January 23, 2019 Assessment & Plan (1) Acute blood loss anemia: Patient was recently admitted on 10/10/2018 for GI bleed and found to have internal/external hemorrhoids on colonoscopy. Hemoglobin improved to 8.4 after 2 units PRBCs up from hemoglobin on admission of 6.9. Baseline hemoglobin is 9-10 range - possibly of chronic blood loss versus of chronic disease. - Hemorrhoidectomy on on 01/[address] Webb - No complications. - Restarted heparin gtt and warfarin for his mechanical heart valve on 01/19. -Has mild trickling of bright red blood per rectum since the surgery but Hgb is now improved at 9.1 -Follow CBC (2) H/O mitral valve replacement with mechanical valve: Mechanical mitral valve, chronic anticoagulation. Valve was put in ~16 years ago per the family. - Heparin gtt restarted 24 hours after hemorrhoidectomy. Coumadin also restarted - On 01/23, INR was 2.0 both patient and family are not willing to do Lovenox injections at home, thus the patient will be on a heparin gtt until his INR is >2.5. -Continue home Coumadin dosing and likely will be therapeutic by tomorrow (3) Rectal bleeding: Likely from hemorrhoids as above and now postoperative bleeding. - As above (4) BPH (benign prostatic hyperplasia): Had retention after surgery which he reports has happened before. Continue finasteride, tamsulosin - Cohen re-inserted over the night of 01/18-01/19. -Patient now anxious to have Cohen catheter removed-will DC in the morning of 01/24 and do trial of void -If not able to void, will replace Cohen catheter and have him follow-up with Dr. Carlson, his urologist as an outpatient within 1 week (5) Pacemaker: Ventricularly paced rhythm, placed for symptomatic bradycardia. - Stable today. (6) HTN (hypertension): Blood pressures normal to elevated. Continue amlodipine, enalapril, HCTZ, and metoprolol (7) HLD (hyperlipidemia): Continue statin (8) Hyponatremia: Sodium low at 127 on admission, now improved with transfusion and normal saline IV fluids, but remains mildly low at 132 Likely secondary to thiazide diuretic but mild and asymptomatic - Follow BMP - If worsens, consider discontinuing HCTZ (9) MGUS (monoclonal gammopathy of unknown significance): Noted in the chart, unclear if follows with hematology. - No inpatient needs (10) Permanent atrial fibrillation: Continues on metoprolol. Now in a paced rhythm. - Restart warfarin as above (11) Hypothyroidism: TSH mildly elevated at 6 this admission, but no symptoms of hypothyroidism. Continue levothyroxine - Recommend repeat TSH in 4-6 weeks (12) DVT prophylaxis: Heparin gtt as above Coumadin Disposition-remain hospitalized until INR is therapeutic at 2.5 Subjective Feeling well. Denies lightheadedness, chest pain, shortness of breath, abdominal pain. He has had some small amounts of bright red blood trickling out per rectum but no clots. No rectal pain. He is eating well, no nausea. He is mostly concerned about when his Cohen catheter will be coming out Review of Systems Review of Systems: All systems reviewed & are unremarkable except as noted in HPI & below Physical Exam Constitutional: WD/WN, vitals as above Eyes: + anicteric sclerae Neck: trachea midline, no thyromegaly Respiratory: normal respiratory effort, lungs clear to auscultation Cardiovascular: RRR, no murmur, no edema Gastrointestinal (Abdomen): normal bowel sounds, soft, nontender, no hepatosplenomegaly Musculoskeletal: Extremities: extremities normal to inspection; no cyanosis and no clubbing Skin: no rashes, warm and dry Neurologic: moves all extremities and awake; no focal motor deficits Psychiatric: A+Ox3, euthymic affect Genitourinary: Cohen catheter in place draining clear yellow urine Results & Data Vital Signs (Past 12 Hours) Vital Signs Temp Pulse Resp BP Pulse Ox Pulse Ox 01/23/19 07:48 95 01/23/19 07:09 36.9 C 60 18 133/69 95 Laboratory Results 01/23/19 01/23/19 01/23/19 Range/Units 04:38 04:38 04:38 WBC 4.58 L (4.8-10.8) K/uL RBC 3.34 L (4.7-6.1) M/uL Hgb 9.1 L (14.0-18.0) g/dL Hct 28.4 L (42-52) % MCV 85.0 (80-100) fL MCH 27.2 (25-34) pg MCHC 32.0 (32-36) g/dL RDW Std Deviation 47.4 H (36.4-46.3) fL RDW Coeff of Fabio 15.3 H (11.5-14.5) % Plt Count 196 (130-400) K/uL MPV 9.1 (7.4-10.4) fL PT 19.8 H (9.0-12.0) Seconds INR 2.0 H (0.9-1.1) APTT 60.8 H* (21.0-31.0) Seconds PTT Ratio 2.2 Sodium 132 L (136-145) mmol/L Potassium 4.2 (3.5-5.1) mmol/L Chloride 101 (98-107) mmol/L Carbon Dioxide 25 (21-32) mmol/L Anion Gap 6.0 (3-11) BUN 25 H (7-18) mg/dl Creatinine 1.37 (0.6-1.4) mg/dl Est Cr Clr Drug Dosing 56.3 ml/min Est GFR ( Amer) 59.7 Est GFR (Non-Af Amer) 51.5 BUN/Creatinine Ratio 18.0 (10-20) Glucose 95 (70-99) mg/dl Calcium 8.6 (8.5-10.1) mg/dl PG Care Time/CCT Total # of Minutes Spent Total Time Spent with Patient: Total time spent is greater than 50% in coordination of care (as documented) at patient's floor/unit and/or counseling patient:
--- NOTE | 2019-01-23 13:39 | Surgery Progress Note ---
Date of Service January 23, 2019 Assessment & Plan (1) S/P hemorrhoidectomy: Hbg 9.1 today, has been stable since post op. Will continue to monitor INR 2, currently receiving heparin gtt as a bridge to coumadin for mechanical heart valve Discussed with patient and family that some blood per rectum is to be expected post operatively over the next 1-2 weeks Pain well managed. Having BM's Okay for discharge when stable per medicine team Subjective Patient with no acute events. States he has had some bright red blood per rectum, but not a large amount. Pain has been well controlled and he has had BMs. Questions when his agustin will be removed. Physical Exam Physical Exam: awake/alert/sitting up in chair Results & Data Vital Signs (Past 12 Hours) Vital Signs Temp Pulse Resp BP Pulse Ox Pulse Ox 01/23/19 07:48 95 01/23/19 07:09 36.9 C 60 18 133/69 95 PG Care Time/CCT Total # of Minutes Spent Total Time Spent with Patient: Total time spent is greater than 50% in coordination of care (as documented) at patient's floor/unit and/or counseling patient:
[2019-01-23] MEDS ORDERED: WARFARIN SOD 4 MG TAB PO SCH (16:00)
[2019-01-23] MEDS ORDERED: WARFARIN SOD 3 MG TAB PO SCH (16:00)
[2019-01-23] MEDS ORDERED: WARFARIN SOD 0.5 MG TAB PO SCH (16:00)
[2019-01-24] MEDS: LEVOTHYROXINE SODIUM 50 MCG TABLET PO SCH (05:35)
[2019-01-24 05:50] LABS: Basophils # (auto) 0.02 K/uL (0-0.2); Basophils % (auto) 0.4 %; Eosinophils # (auto) 0.23 K/uL (0-0.5); Eosinophils % (auto) 4.5 %; Hematocrit (blood only) 28.4 % (42-52); Hemoglobin 9.2 g/dL (14.0-18.0); Immature Granulocytes # (auto) 0.01 K/uL (0.00-0.02); Immature Granulocytes % (auto) 0.2 %; Lymphocytes # (auto) 0.81 K/uL (1.2-3.4); Lymphocytes % (auto) 15.9 %; Mean Corpuscular Hemoglobin 27.3 pg (25-34); Mean Corpuscular Hgb Conc 32.4 g/dL (32-36); Mean Corpuscular Volume 84.3 fL (80-100); Mean Platelet Volume 9.2 fL (7.4-10.4); Monocytes # (auto) 0.78 K/uL (0.11-0.59); Monocytes % (auto) 15.3 %; Neutrophils # (auto) 3.26 K/uL (1.4-6.5); Neutrophils % (auto) 63.7 %; Platelet Count 213 K/uL (130-400); RDW Coefficient of Variation 15.1 % (11.5-14.5); RDW Standard Deviation 46.6 fL (36.4-46.3); Red Blood Count 3.37 M/uL (4.7-6.1); White Blood Count 5.11 K/uL (4.8-10.8)
[2019-01-24 06:16] LABS: INR 2.1 (0.9-1.1); Partial Thromboplastin Ratio 2.2; Prothrombin Time 20.3 Seconds (9.0-12.0)
[2019-01-24 06:26] LABS: Partial Thromboplastin Time 58.9 Seconds (21.0-31.0)
[2019-01-24] MEDS: ENALAPRIL MALEATE 10 MG TAB PO SCH ×2 (08:38→21:43)
[2019-01-24] MEDS: AMLODIPINE BESYLATE 5 MG TAB PO SCH (08:39)
[2019-01-24] MEDS: TAMSULOSIN HCL 0.4 MG CAP PO SCH (08:39)
[2019-01-24] MEDS: FINASTERIDE 5 MG TAB PO SCH (08:39)
[2019-01-24] MEDS: hydroCHLOROthiazide 25 MG TAB PO SCH ×2 (08:39→17:38)
[2019-01-24] MEDS: METOPROLOL TARTRATE 25 MG TAB PO SCH ×2 (08:39→21:43)
[2019-01-24] MEDS: DOCUSATE SODIUM 100 MG CAP PO SCH ×2 (08:39→21:43)
[2019-01-24] MEDS: HEPARIN SODIUM/DEXTROSE 25,000 UNITS/500 ML BAG IV SCH (08:41)
[2019-01-24] MEDS: SIMVASTATIN 20 MG TAB PO SCH (08:43)
[2019-01-24] MEDS: POLYETHYLENE (MIRALAX) 17 GM PACK PO SCH (08:43)
[2019-01-24] MEDS ORDERED: WARFARIN SOD 4 MG TAB PO SCH (16:00)
[2019-01-24] MEDS ORDERED: WARFARIN SOD 0.5 MG TAB PO SCH (16:00)
--- NOTE | 2019-01-24 18:57 | Hospitalist Progress Note ---
Date of Service January 24, 2019 Assessment & Plan (1) Acute blood loss anemia: Patient was recently admitted on 10/10/2018 for GI bleed and found to have internal/external hemorrhoids on colonoscopy. Hemoglobin improved to 8.4 after 2 units PRBCs up from hemoglobin on admission of 6.9. Baseline hemoglobin is 9-10 range - possibly of chronic blood loss versus of chronic disease. - Hemorrhoidectomy on on 01/[address] Webb - No complications. - Restarted heparin gtt and warfarin for his mechanical heart valve on 01/19. -Has mild trickling of bright red blood per rectum since the surgery but Hgb is now improved at 9.1 (2) H/O mitral valve replacement with mechanical valve: Mechanical mitral valve, chronic anticoagulation. Valve was put in ~16 years ago per the family. - Heparin gtt restarted 24 hours after hemorrhoidectomy. Coumadin also restarted - INR continues to be subtherapeutic but is up to 2.1 today-both patient and family are not willing to do Lovenox injections at home, thus the patient will be on a heparin gtt until his INR is >2.5. -Increase Coumadin 4.5 mg once daily -Follow INR in the morning (3) Rectal bleeding: Likely from hemorrhoids as above and now postoperative bleeding. - As above (4) BPH (benign prostatic hyperplasia): Had retention after surgery which he reports has happened before. Continue finasteride, tamsulosin - Cohen re-inserted over the night of 01/18-01/19. -Now has passed a trial of void on 01/24 (5) Pacemaker: Ventricularly paced rhythm, placed for symptomatic bradycardia. - Stable today. (6) HTN (hypertension): Blood pressures normal Continue amlodipine, enalapril, HCTZ, and metoprolol (7) HLD (hyperlipidemia): Continue statin (8) Hyponatremia: Sodium low at 127 on admission, now improved with transfusion and normal saline IV fluids, but remains mildly low at 132 Likely secondary to thiazide diuretic but mild and asymptomatic - Follow BMP - If worsens, consider discontinuing HCTZ (9) MGUS (monoclonal gammopathy of unknown significance): Noted in the chart, unclear if follows with hematology. - No inpatient needs (10) Permanent atrial fibrillation: Continues on metoprolol. Now in a paced rhythm. - Restarted warfarin as above (11) Hypothyroidism: TSH mildly elevated at 6 this admission, but no symptoms of hypothyroidism. Continue levothyroxine - Recommend repeat TSH in 4-6 weeks (12) DVT prophylaxis: Heparin gtt as above Coumadin Disposition-remain hospitalized until INR is therapeutic at 2.5, hopeful for discharge to home tomorrow Subjective Patient had his Cohen catheter out today and his voiding on his own, he is very pleased about this. Denies headache or lightheadedness. He has been ambulating around the room without difficulty. Denies chest pain or shortness of breath. Denies abdominal pain. He still having a small amount of bright red blood per rectum. He had a bowel movement today Review of Systems Review of Systems: All systems reviewed & are unremarkable except as noted in HPI & below Physical Exam Constitutional: WD/WN, vitals as above Eyes: + anicteric sclerae ENMT: external ear and nose normal, oropharynx normal Neck: trachea midline, no thyromegaly Respiratory: normal respiratory effort, lungs clear to auscultation Cardiovascular: RRR, no murmur, no edema Gastrointestinal (Abdomen): normal bowel sounds, soft, nontender, no hepatosplenomegaly Musculoskeletal: Extremities: extremities normal to inspection; no cyanosis and no clubbing Skin: no rashes, warm and dry Neurologic: moves all extremities and awake; no focal motor deficits Psychiatric: A+Ox3, euthymic affect Results & Data Vital Signs (Past 12 Hours) Vital Signs Temp Pulse Resp BP Pulse Ox Pulse Ox 01/24/19 15:25 36.7 C 61 17 113/63 97 01/24/19 08:03 98 01/24/19 08:02 36.6 C 59 L 16 145/73 H 96 Laboratory Results 01/24/19 01/24/19 Range/Units 04:54 04:54 WBC 5.11 (4.8-10.8) K/uL RBC 3.37 L (4.7-6.1) M/uL Hgb 9.2 L (14.0-18.0) g/dL Hct 28.4 L (42-52) % MCV 84.3 (80-100) fL MCH 27.3 (25-34) pg MCHC 32.4 (32-36) g/dL RDW Std Deviation 46.6 H (36.4-46.3) fL RDW Coeff of Fabio 15.1 H (11.5-14.5) % Plt Count 213 (130-400) K/uL MPV 9.2 (7.4-10.4) fL Immature Gran % (Auto) 0.2 % Neut % (Auto) 63.7 % Lymph % (Auto) 15.9 % [place] % (Auto) 15.3 % Eos % (Auto) 4.5 % Baso % (Auto) 0.4 % Immature Gran # (Auto) 0.01 (0.00-0.02) K/uL Neut # (Auto) 3.26 (1.4-6.5) K/uL Lymph # (Auto) 0.81 L (1.2-3.4) K/uL [place] # (Auto) 0.78 H (0.11-0.59) K/uL Eos # (Auto) 0.23 (0-0.5) K/uL Baso # (Auto) 0.02 (0-0.2) K/uL PT 20.3 H (9.0-12.0) Seconds INR 2.1 H (0.9-1.1) APTT 58.9 H* (21.0-31.0) Seconds PTT Ratio 2.2 PG Care Time/CCT Total # of Minutes Spent Total Time Spent with Patient: Total time spent is greater than 50% in coordination of care (as documented) at patient's floor/unit and/or counseling patient:
[2019-01-25] MEDS ORDERED: ONDANSETRON 4 MG OD TAB PO STA (00:09)
[2019-01-25 05:33] LABS: Hematocrit (blood only) 28.2 % (42-52); Mean Corpuscular Hgb Conc 31.9 g/dL (32-36); Mean Corpuscular Volume 84.7 fL (80-100); Mean Platelet Volume 9.7 fL (7.4-10.4); Platelet Count 213 K/uL (130-400); RDW Standard Deviation 46.6 fL (36.4-46.3); Red Blood Count 3.33 M/uL (4.7-6.1)
[2019-01-25 05:51] LABS: INR 2.5 (0.9-1.1); Partial Thromboplastin Ratio 1.9
[2019-01-25 05:56] LABS: Partial Thromboplastin Time 51.2 Seconds (21.0-31.0)
[2019-01-25] MEDS: LEVOTHYROXINE SODIUM 50 MCG TABLET PO SCH (06:36)
[2019-01-25] MEDS: SIMVASTATIN 20 MG TAB PO SCH (08:44)
[2019-01-25] MEDS: POLYETHYLENE (MIRALAX) 17 GM PACK PO SCH (08:44)
[2019-01-25] MEDS: FINASTERIDE 5 MG TAB PO SCH (08:45)
[2019-01-25] MEDS: hydroCHLOROthiazide 25 MG TAB PO SCH (08:45)
[2019-01-25] MEDS: AMLODIPINE BESYLATE 5 MG TAB PO SCH (08:45)
[2019-01-25] MEDS: ENALAPRIL MALEATE 10 MG TAB PO SCH (08:45)
[2019-01-25] MEDS: DOCUSATE SODIUM 100 MG CAP PO SCH (08:45)
[2019-01-25] MEDS: METOPROLOL TARTRATE 25 MG TAB PO SCH (08:45)
[2019-01-25] MEDS: TAMSULOSIN HCL 0.4 MG CAP PO SCH (08:45)
--- NOTE | 2019-01-25 12:21 | Discharge Summary ---
Date of Service January 25, 2019 Admission HPI Per Admitting Provider 73-year-old male with a past medical history of hyperlipidemia, hypertension, A. fib, mitral valve replacement on warfarin, hypothyroidism presents with rectal bleeding. Patient was recently admitted on 10/10/2018 for similar presentation. At that admission he was seen by GI and was found on colonoscopy to have internal/external hemorrhoids, which were considered likely cause of bleed. He was scheduled with a surgeon to have a hemorrhoidectomy on 01/18/2019. Since this admission, the patient has had intermittent rectal bleeding. Over the past 3 days, the patient has felt weak, fatigued. He denies shortness of breath, he denies chest pain. The patient has been therapeutic on warfarin. Last hemoglobin check on 12/29/2017 showed hemoglobin of 9.3, today was 6.9. Principal Diagnosis GI bleeding, status post hemorrhoidectomy Discharge Exam Constitutional WD/WN, vitals as above Eyes + anicteric sclerae ENMT external ear and nose normal, oropharynx normal Neck trachea midline, no thyromegaly Respiratory normal respiratory effort, lungs clear to auscultation Cardiovascular RRR, no murmur, no edema Gastrointestinal (Abdomen) normal bowel sounds, soft, nontender, no hepatosplenomegaly Musculoskeletal Extremities: extremities normal to inspection; no cyanosis and no clubbing Skin no rashes, warm and dry Neurologic moves all extremities and awake; no focal motor deficits Psychiatric A+Ox3, euthymic affect Discharge Data Allergies Allergy/AdvReac Type Severity Reaction Status Date / Time adhesive Allergy Unknown RASH Verified 01/13/19 18:29 Consultations 01/13/19 19:19 ED Decision to Admit Stat 01/13/19 21:56 Consult Case Management - Discharge Planning Routine Consult Gastroenterology Routine Consult General Surgery Routine Procedures Performed Operation Date: 01/18/19 07:00 Actual Procedures p Hemorrhoidectomy(Not Applicable) - Thaddeus Webb, DO Hospital Course (1) Acute blood loss anemia: Patient was recently admitted on 10/10/2018 for GI bleed and found to have internal/external hemorrhoids on colonoscopy. Hemoglobin improved to 8.4 after 2 units PRBCs up from hemoglobin on admission of 6.9. Baseline hemoglobin is 9-10 range - possibly of chronic blood loss versus of chronic disease. - Hemorrhoidectomy on on 01/[address] Webb - No complications. - Restarted heparin gtt and warfarin for his mechanical heart valve on 01/19. -Has mild trickling of bright red blood per rectum since the surgery but Hgb is now improved at 9.1 -Now off heparin drip and on home doses of Coumadin with therapeutic INR -Continue on ferrous sulfate from home -Should have follow-up CBC as an outpatient with PCP in 1 to 2 weeks (2) H/O mitral valve replacement with mechanical valve: Mechanical mitral valve, chronic anticoagulation. Valve was put in ~16 years ago per the family. - Heparin gtt restarted 24 hours after hemorrhoidectomy and is now stopped that INR is therapeutic. INR now 2.5 on the day of discharge -Continue home Coumadin regimen and check INR on Wednesday with home testing kit (3) Rectal bleeding: Likely from hemorrhoids as above and now postoperative bleeding. - As above (4) BPH (benign prostatic hyperplasia): Had retention after surgery which he reports has happened before. Continue finasteride, tamsulosin - Cohen re-inserted over the night of 01/18-01/19. -Now has passed a trial of void on 01/24 (5) Pacemaker: Ventricularly paced rhythm, placed for symptomatic bradycardia. - Stable today. (6) HTN (hypertension): Blood pressures normal Continue amlodipine, enalapril, HCTZ, and metoprolol (7) HLD (hyperlipidemia): Continue statin (8) Hyponatremia: Sodium low at 127 on admission, now improved with transfusion and normal saline IV fluids, but remains mildly low at 132 Likely secondary to thiazide diuretic but mild and asymptomatic - Follow BMP - If worsens, consider discontinuing HCTZ (9) MGUS (monoclonal gammopathy of unknown significance): Noted in the chart, unclear if follows with hematology. - No inpatient needs (10) Permanent atrial fibrillation: Continues on metoprolol. Now in a paced rhythm. - Restarted warfarin as above (11) Hypothyroidism: TSH mildly elevated at 6 this admission, but no symptoms of hypothyroidism. Continue levothyroxine - Recommend repeat TSH in 4-6 weeks (12) DVT prophylaxis: Heparin drip and Coumadin were utilized for prophylaxis Disposition-stable for discharge to home Needs follow-up with general surgery and PCP Total Time Total Time Spent Total Time Spent (In Minutes): Greater than 30 minutes Total Time Includes: Examination of the Patient, Discharge Planning and Medication Reconciliation Discharge Plan Discharge Items Patient Disposition: Home - Self-Care Reason For Visit: GI BLEED Discharge Diagnosis: GI bleeding, hemorrhoidectomy Condition on Discharge: Good Activity: Resume your previous activity Non-emergency contact: Primary Care Provider and Surgeon Call non-emergency contact if: you have any medication questions, your symptoms worsen, your pain is not controlled, your pain is worsening and your pain is unusual for you Follow-up/Referrals: Son Sargent MD [Primary Care Provider] - 02/02/19 3:00 pm (Please, have your labs (PT and INR) drawn at Dr. Sargent's office before noon on WednesdayJanuary 27. Please, follow up at Dr. Sargent's office with his associate, Autumn Woo PA-C, on February 02 at 3:00 pm. *If you need to change this appointment, call their office at [phone].) Thaddeus Webb, [Surgeon] - (Please schedule follow up in clinic within 2 weeks. You may call the office if you have any questions/concerns.) Diet: Heart Healthy Add Attending Provider Instructions: Please continue taking your usual Coumadin dose and check your PT/INR on Wednesday. Pending Studies at Discharge: No Stand-Alone Forms: My [facility] [employer], Smoking Cessation Medications and DC Order Prescriptions: New hydrocodone-acetaminophen [[place]] 5-325 mg tablet 1 - 2 tab PO Q4H PRN (Reason: pain, initial therapy, max 8 tabs daily) Qty: 15 RF: 0 docusate sodium [Colace] 100 mg capsule 100 mg PO BID Qty: 60 RF: 0 polyethylene glycol 3350 [Miralax] 17 gram Powder In Packet 17 g PO DAILY Qty: 30 RF: 0 Continued simvastatin 20 mg Tablet 20 mg PO DAILY Qty: 0 RF: 0 cholecalciferol (vitamin D3) 2,000 unit Capsule 2,000 unit PO DAILY Qty: 0 RF: 0 tamsulosin 0.4 mg Capsule 0.4 mg PO DAILY Qty: 0 RF: 0 finasteride 5 mg Tablet 5 mg PO DAILY Qty: 0 RF: 0 metoprolol tartrate 25 mg Tablet 25 mg PO BID Qty: 0 RF: 0 ferrous sulfate 325 mg (65 mg iron) Tablet 325 mg PO DAILY Qty: 0 RF: 0 amlodipine 5 mg tablet 5 mg PO DAILY RF: 0 calcium carbonate [Calcium 500] 500 mg calcium (1,250 mg) Tablet 500 mg PO DAILY RF: 0 levothyroxine 50 mcg tablet 50 mcg PO DAILY RF: 0 benazepril-hydrochlorothiazide 20-25 mg tablet 1 tab PO BID RF: 0 warfarin 3 mg tablet 3 mg PO 4XWK RF: 0 warfarin 3 mg tablet 4.5 mg PO 3XWK RF: 0 Discontinued hydrocortisone [Anusol-HC] 2.5 % cream with perineal applicator 1 appln MA BID PRN (Reason: hemorrhoids) Qty: 30 RF: 0 Discharge Orders: Discharge Order (Routine); Ordered 01/25/19 Ordered By: Jackie Oliver Admission Data Admit Date/Time: 01/13/19 20:21 Attending Provider: Jackie Oliver Admit Provider: Johnny Kc Primary Care Provider: Son Sargent Other Providers: Thaddeus Webb ; Joel Cuevas ; Reagan Recinos
== END 2019-01-25 12:54 | disposition home or self-care (01) | DRG 348 ==
LOC: ED 16:50 → 2E 20:21 → SUATTDRO 20:21 → 2E 20:53 → 3W 01-14 13:57